=== PATIENT | male | born 1965 | race Two or more races ===

== ENCOUNTER 2023-07-26 20:54 | Emergency (ER) | payer BC, SELFPAY ==
--- NOTE | 2023-07-26 | ECG_ITS ---
Test Reason : chest pain, sob Blood Pressure : / mmHG Vent. Rate : 117 BPM Atrial Rate : 117 BPM P-R Int : 130 ms QRS Dur : 078 ms QT Int : 330 ms P-R-T Axes : 053 040 039 degrees QTc Int : 460 ms Sinus tachycardia Nonspecific ST-T changes Abnormal ECG No previous ECGs available Referred By: Generic ED Physician Electronically Signed By:Kang Pavon
--- NOTE | ~2023-07-26 | XR_ITS ---
EXAMINATION: XR CHEST CLINICAL INFORMATION: Pain COMPARISON: None available. TECHNIQUE: Frontal view of the chest was obtained. FINDINGS: No significant abnormality is noted involving the heart, lungs, mediastinum, bony thorax or soft tissues. XR/XR chest 1V IMPRESSION: Unremarkable examination.
[2023-07-26 21:04] VITALS: BP 155/100; PULSE 118; RESP 16; TEMP 37.1; O2SAT 98; BMI 24.2
--- NOTE | 2023-07-26 21:12 | ED.CHESTPAIN ---
HPI - Chest Pain General Chief Complaint: Chest Pain Stated Complaint: chest marquise,sob Time Seen by Provider: 07/26/23 21:11 Source: patient Mode of arrival: ambulatory Limitations: no limitations History of Present Illness HPI narrative: Patient's history of hypertension with strong family history of cardiac disease his 2 brothers of coronary artery disease at his age do not take any aspirin blood pressure well controlled on lisinopril and amlodipine been having some cold and dry hacking cough since last night patient's grandson was also sick for last 2 days at 15:00 patient took cough syrup containing phenylepinephrine. Since 17:00 while [address] drop his grandson patient noticed tightness in the chest with slight cough and shortness of breath which improved later again while at rest and 19:00 noticed similar symptoms no jaw pain no arm no cold sweats patient never had similar symptoms in the past when patient arrived patient denied any significant pain or tightness. Blood pressure on arrival was 155/100 with pulse rate of 118 saturating 98% at room air Related Data Previous Rx's Medication Instructions Recorded benzonatate 200 mg capsule 200 mg PO TID PRN cough #30 caps 07/26/23 codeine 10 mg-guaifenesin 100 mg/5 10 ml PO Q6H PRN cough #237 mL 07/26/23 mL oral liquid Allergies Allergy/AdvReac Type Severity Reaction Status Date / Time Penicillins AdvReac Intermediate Palpitation Verified 07/26/23 21:07 s Review of Systems Review of Systems: Yes all other systems are reviewed and are negative [facility] Past Medical History Medical History (Updated 07/26/23 @ 23:47 by Dakota Patel MD) Hypertension Social History Social History Smoked in Last 30 Days: No Use of substances other than those prescribed or required for medical reasons: No Advance Directives: No Advance Directives Information Provided: Yes Physical Exam Vital Signs: Vital Signs: Last Vital Signs Temp 98.2 F 07/26/23 21:47 Pulse 90 07/26/23 21:47 Resp 15 07/26/23 21:47 BP 125/84 07/26/23 21:47 Pulse Ox 98 07/26/23 21:47 O2 Del Method Room Air 07/26/23 21:47 BMI result Body Mass Index 24.2 Appearance: Alert. Oriented X3. No acute distress. Eyes: No pallor or icterus ENT: Pharynx normal. Oral Mucosa moist Neck: Normal inspection. Neck supple. CVS: Normal heart rate and rhythm. Pulses normal. Respiratory: No respiratory distress. Equal air entry bilateral, no wheezing/rales/rhonchi Abdomen: Soft and nontender. Bowel sounds are present, Skin: Skin warm and dry. Normal skin color. Normal skin turgor. Extremities: No lower extremity edema. No calf tenderness Neuro: Oriented X 3. No motor deficit. Medications Administered Discontinued Medications Generic Name Dose Route Start Last Admin Trade Name Freq PRN Reason Stop Dose Admin Aspirin 162 mg 07/26/23 21:13 07/26/23 21:39 Aspirin Enteric Coated 81 Mg Tablet. PO 07/26/23 21:14 162 mg ONCE ONE Administration Atorvastatin Calcium 80 mg 07/26/23 21:22 07/26/23 21:39 Atorvastatin Calcium 80 Mg Tablet PO 07/26/23 21:23 80 mg ONCE ONE Administration Guaifenesin/Codeine Phosphate 10 ml 07/26/23 23:38 07/26/23 23:54 Guaifen/Codeine Sf 200/20/10ml 10 Ml Liquid PO 07/26/23 23:39 10 ml ONCE ONE Administration Heparin Sodium (Porcine) 5,000 unit 07/26/23 21:24 07/26/23 21:39 Heparin Sodium,Porcine 5,000 Unit/Ml Vial IVPUSH 07/26/23 21:25 5,000 unit ONCE ONE Administration Metoprolol Tartrate 5 mg 07/26/23 21:22 07/26/23 21:39 Metoprolol Tartrate 5 Mg/5 Ml Vial IVPUSH 07/26/23 21:23 5 mg ONCE ONE Administration Nitroglycerin 1 inch 07/26/23 21:13 07/26/23 21:39 Nitroglycerin 2 % Oint 1 Gm Packet TRANSDERMA 07/26/23 21:14 1 inch ONCE ONE Administration Medical Decision Making Medical Decision Making [facility] Narrative: Patient with significant risk factors for coronary disease with his 2 brothers of CAD at the same age comes here with chest tightness and shortness of breath EKG showing changes in the inferolateral leads. At this time there is no ST elevation. Will give aspirin nitroglycerin beta joselyn atorvastatin and will give a bolus of heparin 5000U pending cardiac enzymes Patient test came out positive for COVID-19 2 sets of high sensitive troponin negative D-dimer negative likely patient's symptoms from COVID not from ACS will discharge patient home. Case discussed with cardiology Dr. Manjeet Pavon Differential Diagnosis Differential Diagnoses: The differential diagnosis associated with the presentation includes ACS/PE/pneumonia/pneumothorax Admission/Observation Consideration of admission/observation: Escalation of care including admission/observation considered Lab Data MDM Lab Attestation statement: I reviewed the patient's lab results. 07/26/23 21:26 07/26/23 21: Labs: Lab Results 07/26/23 07/26/23 07/26/23 Range/Units 21:26 21: 21: WBC 13.2 H (4.8-10.8) X10*3/uL RBC 5.69 (4.60-5.80) X10*6/uL Hgb 16.5 (14.0-18.0) g/dl Hct 48.2 (42.0-52.0) % MCV 84.7 (80.0-98.0) fL MCH 29.0 (27.0-33.0) pg MCHC 34.2 (31.0-36.0) g/dl RDW 12.3 (11.0-16.0) % Plt Count 400 (160-400) X10*3/uL MPV 8.7 L (9.4-12.4) fL Immature Gran % (Auto) 0.3 (0.0-0.4) % Neut % (Auto) 67.8 (45-73) % Lymph % (Auto) 21.4 (20-40) % [place] % (Auto) 7.4 (2-11) % Eos % (Auto) 2.6 (0-4) % Baso % (Auto) 0.5 (0-2) % Lymph # (Auto) 2.8 (1.2-4.9) X10*3/uL [place] # (Auto) 1.0 (0.1-1.2) X10*3/uL Eos # (Auto) 0.3 (0.0-0.4) X10*3/uL Baso # (Auto) 0.1 (0.0-0.2) X10*3/uL Abs Immat Gran (auto) 0.04 H (0.00-0.03) X10*3/uL Absolute Neuts (auto) 8.9 H (2.0-8.3) x10*3/uL Absolute Nucleated RBC 0.000 (0.0-0.012) X10*3/uL Nucleated RBC % (auto) 0.0 (0.0-0.2) /100WBC PT Cancelled 12.5 INR Cancelled 1.0 APTT 33.8 (26.0-36.4) SEC D-Dimer High Sensitivty < 150 NG/ML Sodium 142 (135-145) mmol/L Potassium 3.8 (3.3-5.1) mmol/L Chloride 102 (96-108) mmol/L Carbon Dioxide 27 (22-29) mmol/L Anion Gap 17 (12-20) BUN 21 H (9-16) mg/dL Creatinine 1.43 H (0.5-1.4) mg/dL Estim Creat Clear Calc 51.4 Estimated GFR 51 Random Glucose 113 (60-115) mg/dL Calcium 9.5 (8.4-10.2) mg/dL Magnesium 2.1 (1.6-2.6) mg/dL Total Bilirubin 0.4 (0.0-1.0) mg/dL Direct Bilirubin 0.2 (0.0-0.5) mg/dL AST 21 (5-37) U/L ALT 28 (0-40) U/L Alkaline Phosphatase 61 (39-117) U/L Troponin I High Sens < 2.7 (<3.5-35.0) ng/L B-Natriuretic Peptide < 10 (<100) pg/mL Total Protein 8.5 H (6.5-8.0) g/dL Albumin 4.5 (3.5-5.0) g/dL COVID-19 (BUBBA) Positive A (Negative) COVID-19 Clin Com See Note Influenza Type A (YULIET) Negative (Negative) Influenza Type B (YULIET) Negative (Negative) Influenza A & B Note See Note 07/26/23 Range/Units 22:59 WBC (4.8-10.8) X10*3/uL RBC (4.60-5.80) X10*6/uL Hgb (14.0-18.0) g/dl Hct (42.0-52.0) % MCV (80.0-98.0) fL MCH (27.0-33.0) pg MCHC (31.0-36.0) g/dl RDW (11.0-16.0) % Plt Count (160-400) X10*3/uL MPV (9.4-12.4) fL Immature Gran % (Auto) (0.0-0.4) % Neut % (Auto) (45-73) % Lymph % (Auto) (20-40) % [place] % (Auto) (2-11) % Eos % (Auto) (0-4) % Baso % (Auto) (0-2) % Lymph # (Auto) (1.2-4.9) X10*3/uL [place] # (Auto) (0.1-1.2) X10*3/uL Eos # (Auto) (0.0-0.4) X10*3/uL Baso # (Auto) (0.0-0.2) X10*3/uL Abs Immat Gran (auto) (0.00-0.03) X10*3/uL Absolute Neuts (auto) (2.0-8.3) x10*3/uL Absolute Nucleated RBC (0.0-0.012) X10*3/uL Nucleated RBC % (auto) (0.0-0.2) /100WBC PT INR APTT (26.0-36.4) SEC D-Dimer High Sensitivty NG/ML Sodium (135-145) mmol/L Potassium (3.3-5.1) mmol/L Chloride (96-108) mmol/L Carbon Dioxide (22-29) mmol/L Anion Gap (12-20) BUN (9-16) mg/dL Creatinine (0.5-1.4) mg/dL Estim Creat Clear Calc Estimated GFR Random Glucose (60-115) mg/dL Calcium (8.4-10.2) mg/dL Magnesium (1.6-2.6) mg/dL Total Bilirubin (0.0-1.0) mg/dL Direct Bilirubin (0.0-0.5) mg/dL AST (5-37) U/L ALT (0-40) U/L Alkaline Phosphatase (39-117) U/L Troponin I High Sens < 2.7 (<3.5-35.0) ng/L B-Natriuretic Peptide (<100) pg/mL Total Protein (6.5-8.0) g/dL Albumin (3.5-5.0) g/dL COVID-19 (BUBBA) (Negative) COVID-19 Clin Com Influenza Type A (YULIET) (Negative) Influenza Type B (YULIET) (Negative) Influenza A & B Note Independent Interpretation I performed an independent interpretation of an: EKG Interpretation: Sinus tachycardia with heart rate 117 beats per minute normal interval normal axis flat ST segment V4 V5 V6 T inversion inferior lateral leads no ST elevation Critical Care Time Critical Care Time Critical Care Time: Yes Total Critical Care Time: 45 Attestation: The patient was critically ill with a high probability of imminent or life threatening deterioration. I spent greater than ?50??minutes of discontinuous time evaluating the patient,delivering critical care at the bedside, discussing and evaluating pertinent data with consultants. Critical care time does not include time spent performing separately billable procedures or teaching. Total time spent performing critical care was 45???minutes. Discharge Plan Discharge Clinical Impression: Chest pain, COVID-19 Patient Disposition: Home, Self-Care Instructions: Chest Pain (ED), COVID-19 (Coronavirus Disease 2019) (ED) Additional Instructions: Social distancing as advised Cough syrup as prescribed Tylenol for headache/fever Your creatinine is slightly elevated to 1.43 drink plenty of fluids recheck your kidney functions in 1 month Prescriptions: New codeine-guaifenesin 10-100 mg/5 mL liquid 10 ml PO Q6H PRN (Reason: cough) Qty: 237 0RF benzonatate 200 mg capsule 200 mg PO TID PRN (Reason: cough) Qty: 30 0RF Interventions: ED Discharge Assessment Last Done: 07/27/23 00:01 Discharge Date/Time: 07/27/23 00:02
[2023-07-26 21:18] VITALS: BP 146/87; PULSE 119; RESP 17; TEMP 36.5; O2SAT 100
[2023-07-26 21:31] LABS: MANUAL DIFF FLAG NO
[2023-07-26 21:33] LABS: Basophils Absolute Auto 0.1 X10*3/uL (0.0-0.2); Basophils Percent Auto 0.5 % (0-2); Eosinophils Absolute Auto 0.3 X10*3/uL (0.0-0.4); Eosinophils Percent Auto 2.6 % (0-4); Hematocrit 48.2 % (42.0-52.0); Hemoglobin 16.5 g/dl (14.0-18.0); Imm Gran Abs Auto 0.04 X10*3/uL (0.00-0.03); Imm Gran Pct Auto 0.3 % (0.0-0.4); Lymphocytes Absolute Auto 2.8 X10*3/uL (1.2-4.9); Lymphocytes Percent Auto 21.4 % (20-40); Mean Corpuscular HGB Conc 34.2 g/dl (31.0-36.0); Mean Corpuscular Volume 84.7 fL (80.0-98.0); Mean Platelet Volume 8.7 fL (9.4-12.4); Monocytes Percent Auto 7.4 % (2-11); Neutrophils Absolute Auto 8.9 x10*3/uL (2.0-8.3); Neutrophils Percent Auto 67.8 % (45-73); Platelet Count 400 X10*3/uL (160-400); Red Blood Count 5.69 X10*6/uL (4.60-5.80); Red Cell Distribution Width 12.3 % (11.0-16.0); White Blood Count 13.2 X10*3/uL (4.8-10.8)
[2023-07-26] MEDS: Aspirin Enteric Coated 81 MG TABLET.DR 162 MG PO (21:39)
[2023-07-26] MEDS: Atorvastatin Calcium 80 MG TABLET PO (21:39)
[2023-07-26] MEDS: Heparin Sodium,Porcine 5,000 UNIT/ML VIAL 5000 UNIT IVPUSH (21:39)
[2023-07-26] MEDS: Metoprolol Tartrate 5 MG/5 ML VIAL IVPUSH (21:39)
[2023-07-26] MEDS: Nitroglycerin 2 % Oint 1 GM Packet 1 INCH TRANSDERMA (21:39)
[2023-07-26 21:43] LABS: Prothrombin Time 12.5 SEC (11.1-13.3)
[2023-07-26 21:44] VITALS: PULSE 115
[2023-07-26 21:45] LABS: COVID-19 Test Positive (Negative); IDNOW Serial# 152EDE1D
[2023-07-26 21:46] LABS: Partial Thromboplastin Time 33.8 SEC (26.0-36.4)
[2023-07-26 21:47] VITALS: BP 125/84; PULSE 90; RESP 15; TEMP 36.8; O2SAT 98
[2023-07-26 21:48] LABS: Alanine Aminotransferase 28 U/L (0-40); Albumin Level 4.5 g/dL (3.5-5.0); Alkaline Phosphatase 61 U/L (39-117); Anion Gap 17 (12-20); Aspartate Amino Transferase 21 U/L (5-37); Bilirubin Direct 0.2 mg/dL (0.0-0.5); Bilirubin Total 0.4 mg/dL (0.0-1.0); Blood Urea Nitrogen 21 mg/dL (9-16); Calcium 9.5 mg/dL (8.4-10.2); Carbon Dioxide 27 mmol/L (22-29); Chloride 102 mmol/L (96-108); Creatinine Clr Calc Pharmacy 51.4; Estimated Glomerular Filt Rate 51; Glucose Random 113 mg/dL (60-115); Magnesium 2.1 mg/dL (1.6-2.6); Potassium 3.8 mmol/L (3.3-5.1); Sodium 142 mmol/L (135-145); Total Protein 8.5 g/dL (6.5-8.0)
[2023-07-26 21:50] LABS: D Dimer High Sensitivity < 150 NG/ML
[2023-07-26 21:54] LABS: B Type Natriuretic Peptide < 10 pg/mL (<100)
[2023-07-26 21:55] LABS: Troponin-I High Sensitivity < 2.7 ng/L (<3.5-35.0)
[2023-07-26 22:14] LABS: IDNOW Serial# 08D9AD1C; Influenza A Negative (Negative); Influenza B2 Negative (Negative)
[2023-07-26 23:23] LABS: Troponin-I High Sensitivity < 2.7 ng/L (<3.5-35.0)
--- OUTSIDE RECORDS SUMMARY | 2023-07-26 23:47 | XMS_ITS | Patient Health Record ---
Author Name Unknown Organization [email or web address] Address [address] [place] [address] Care Team Providers Care Bevel Face Stoner And Polisher Name Role Phone MANNIE GARVEY Primary Care Provider ALLERGIES Allergen (clinical drug ingredient) Drug/Non Drug Allergy documented on EMR Reaction Allergy Type Onset Date Status penicillamine Penicillamine Unknown Drug Allergy Active RESULTS Component Value Reference Range Notes COMPREHENSIVE METABOLIC PANE L (Not yet reviewed by provider) Interpretation: Performing Lab:Testing performed or reported by [facility], a Service of [facility], [address] [place] [address] Imtiaz Becker MD, [employer] Worker [facility]# [id number] Notes/Report: GLUCOSE 111 (70-99) MG/DL BUN 16 (6-20) MG/DL CREATININE 1.1 (0.7-1.2) MG/DL SODIUM 139 (133-145) MMOL/L POTASSIUM 4.5 (3.6-5.2) MMOL/L CHLORIDE 104 (98-107) MMOL/L BICARBONATE 26 (22-29) MMOL/L ANION GAP 9 (4-17) ALBUMIN 4.2 (3.4-4.8) GM/DL CALCIUM 9.0 (8.6-10.5) MG/DL BILIRUBIN,TOTAL 0.4 (0-1.2) MG/DL TOTAL PROTEIN 7.5 (6.2-8.2) GM/DL AG RATIO 1.3 AST 16 (0-40) U/L ALK PHOS 63 (40-129) U/L ALT 24 (0-41) U/L ESTIMATED GFR CREATININE 79 Creatinine based estimated glomerular filtration (eGFR) in adults is calculated using the National Kidney Foundation recommended 2020 CKD-EPI equation. Estimates GFR from serum creatinine, age and sex. HEMOGLOBIN A1C WITH EST GLUC OSE (Not yet reviewed by provider) Interpretation: Performing Lab:Testing performed or reported by [facility], a Service of [address] [address] Imtiaz Becker MD, [employer] Work[employer] [facility]# [id number] Notes/Report: HEMOGLOBIN A1C 6.0 (4.0-5.6) % MONITORING: In known diabetic patients, hemoglobin A1c targets should be discussed with health care provider. DIAGNOSTIC USE: The [place] Diabetes [employer] (ADA) and the World Health Organization (WHO) recommend the use of HbA1c to diagnose diabetes using a threshold of 6.5%. Patients who have an HbA1c between 5.7% and 6.4% are considered at increased risk for developing diabetes in the future. CAUTION: Falsely low HbA1c results may be observed in patients with hemolytic anemia, homozygous forms of abnormal hemoglobin (e.g. SS, CC, SC), , recent blood loss or hemoglobin F greater than 7%. Fructosamine may be used as an alternate test in these cases. REFERENCE: ADA: Standards of Medical Care in Diabetes 2020, The Journal of Clinical and Applied Research and Education Volume 43, Supplement 1 ESTIMATED AVERAGE GLUCOSE 126 MICROALBUMIN, URINE (Not yet reviewed by provider) Interpretation: Performing Lab:Testing performed or reported by [facility], a Service of [address] [address] Imtiaz Becker MD, [employer] Worker [facility]# [id number] Notes/Report: MICRO-ALBUMIN 85.0 (<20) MG/L The urine microalbumin test is designed to monitor renal function. When screening for Bence Luque proteinuria, urine electrophoresis is recommended. MALB/CREAT RATIO 29.7 (0-20) MG/GM URINE CREAT FOR MICRO ALBUMIN 285.7 LIPID PANEL Reviewed date:07/13/2023 08:03:29 AM Interpretation: Performing Lab:Testing performed or reported by [facility], a Service of [address] [address] Imtiaz Becker MD, [employer] Worker [facility]# [id number] Notes/Report: CHOLESTEROL, TOTAL 76 (<200) MG/DL TRIGLYCERIDE 55 (<150) MG/DL HDL CHOL 35 (>39) MG/DL LDL CHOLESTEROL, CALCULATED 30 (0-130) MG/DL NON HDL CHOLESTEROL (CALC) 41 (<160) MG/DL PSA, SCREEN Reviewed date:07/13/2023 08:01:31 AM Interpretation: Performing Lab:Testing performed or reported by [facility], a Service of [facility], [address] [place] [address] Imtiaz Becker MD, [employer] Worker [facility]# [id number] Notes/Report: PSA 0.6 (0-4) NG/ML TEST PERFORMED USING THE CRYSTAL ELECTROCHEMILLUMINESCENCE TOTAL PSA ASSAY. PSA VALUES OBTAINED WITH OTHER ASSAY METHODS OR KITS CANNOT BE USED INTERCHANGEABLY. REASON FOR REFERRAL Reason Please see for sebac eous cyst on back Diagnosis 1 Sebaceous cyst (L72. 3) Referral Organization [facility] ter Referring Provider First Name MANNIE Referring Provider Last Name GURU Referring Provider Speciality Internal M edicine Referred Provider [facility] [place] Referred Provider Specialty General Surg cl General Notes Faxed please follow up, Artis Dempsey 12/01/2022 03:10:30 PM > Clinical Notes Please refax referra l pt. was advised by [facility] that they did not receive the referral. Patient aware of [facility] phone#. , Deni Sky 12/05/2022 02:09:28 AM >, re faxed, Artis Dempsey 12/04/2022 03:59:42 PM >, Please call their office and verify fax number. Fax has not been going through with the fax we have., Ellie Nowak 12/05/2022 07:53:47 AM > , [facility] for referrals fax# [phone]., Deni Sky 01/10/2023 04:22:00 PM >, Refaxed., Ellie Nowak 01/11/2023 10:07:13 AM >, Received a fax from [facility] when they are reaching out with the pt. Patient stated to cancel the referral.Asya Ceasar 01/12/2023 01:04:34 PM > Referral Priority Routine MEDICATIONS Medication SIG (Take, Route, Frequency, Duration) Notes Start Date End Date Status amLODIPine Besylate 2.5 MG TAKE 1 TABLET BY MOUTH EVERY DAY for 30 Active Clotrimazole 1 % 1 application Records Management Analyst ally Twice a day for 28 day(s) 12/15/2021 Unknow n Lotrimin AF 1 % 1 application Records Management Analyst ally Twice a day for 28 day(s) 12/15/2021 Unknow n Lisinopril-hydroCHLOROthia zide 20-25 MG TAKE 1 TABLET BY MOUTH EVERY DAY for 90 Active IMMUNIZATIONS Vaccine Route Administration Date Status Comme nts COVID 19 Pfizer Unknown 10/09/2020 Administered COVID 19 Pfizer Unknown 10/31/2020 Administered COVID 19 Pfizer Unknown 06/18/2021 Administered Fluzone QD IM Intramuscular 06/15/2022 Administered SOCIAL HISTORY Tobacco Use: Social History Observation Description Date Details (start date - stop date) Never Smoker NA - NA Sex Assigned At : Social History Observation Description Sex Assigned At Unknown Tobacco Use/Smoking Question Answer Notes Are you a nonsmoker Alcohol Screen (Audit-C) Question Answer Notes Did you have a drink containing alcohol in the p ast year? No Points 0 Interpretation Negative PROBLEMS Problem Type ICD Code Onset Dates Problem Status W/U Status Risk SNOMED Code Notes Problem Proteinuria, unspecified (R80.9) Active confirmed Proteinuria (57961972) Problem Encounter for general adult medical examination without abnormal findings (Z00.00) Active confirmed Adult health examination (952213366) Problem Essential (primary) hypertension (I10) Active confirmed Essential hypertension (35261594) Problem Personal history of COVID-19 (Z86.16) Active confirmed History of disease caused by Severe acute respiratory syndrome coronavirus 2 (situation) ([id number] 105) VITAL SIGNS Heart Rate 85 /min 07/12/2023 Temperature 97.4 degrees Fahrenheit 07/12/2023 Oximetry 98 % 07/12/2023 Blood pressure diastolic 90 mm Hg 07/12/2023 Height 65.75 in 07/12/2023 Blood pressure systolic 122 mm Hg 07/12/2023 Weight 156.6 lbs 07/12/2023 BMI 25.47 kg/m2 07/12/2023 Encounters Encounter Location Date Provider Diagnosis [facility] [address] [place] [address] 12/14/2022 [facility] [address] [place] [address] 01/25/2023 MANNIE GARVEY Encounter for genera l adult medical examination without abnormal findings Z00.00 ; Essential (primary) hypertension I10 ; Impaired fasting glucose R73.01 ; Encounter for screening for malignant neoplasm of prostate Z12.5 and Proteinuria, unspecified R80.9 [facility] [address] [place] [address] 07/12/2023 MANNIE GARVEY Essential (primary) hypertension I10 [facility] [address] [place] [address] 12/01/2022 MANNIE GARVEY [facility] [address] [place] [address] 2023 MANNIE GARVEY ASSESSMENTS Encounter Date Diagnosis Assessment Notes Treatment Notes Treatment Clinical Notes 01/25/2023 Encounter for general adult medical examination without abnormal findings (ICD-10 - Z00.00) 07/12/2023 Essential (primary) hypertension (ICD-10 - I10) 01/25/2023 Essential (primary) hypertension (ICD-10 - I10) 01/25/2023 Encounter for screening for malignant neoplasm of prostate (ICD-10 - Z12.5) 01/25/2023 Impaired fasting glucose (ICD-10 - R73.01) 01/25/2023 Proteinuria, unspecified (ICD-10 - R80.9) PLAN OF TREATMENT Pending Test Test Name Order Date Electrocardiogram (EKG) 02/20/2018 Ultrasound : Kidneys 04/16/2018 EBCT Coronary calcium score 07/12/2023 COMPREHENSIVE METABOLIC PANEL 07/12/2023 COMPREHENSIVE METABOLIC PANEL 09/30/2021 HEMOGLOBIN A1C 12/09/2021 HEMOGLOBIN A1C WITH EST GLUCOSE 06/15/20 22 HEMOGLOBIN A1C WITH EST GLUCOSE 07/12/19 24 LIPID PANEL 09/30/2021 MICROALBUMIN, URINE 09/30/2021 MICROALBUMIN, URINE 07/12/2023 Future Test Test Name Order Date COMPREHENSIVE METABOLIC PANEL 06/15/2022 LIPID PANEL 06/15/2022 MICROALBUMIN, URINE 06/15/2022 COMPREHENSIVE METABOLIC PANEL 01/26/2023 HEMOGLOBIN A1C WITH EST GLUCOSE 01/27/20 23 LIPID PANEL 01/26/2023 MICROALBUMIN, URINE 01/26/2023 PSA, SCREEN 01/26/2023 Next Appt Details Provider Name:MANNIE GARVEY , 01/17/2024 04:30:00 PM, [address], [place], [address], Insurance Providers Payer Name Payer Address Payer Phone Subscriber Number Group Number Insured Name Patient Relationship to Insured Coverage Start Date Coverage End Date [facility] [address] [place] [phone] [id number] Lucas Farrell Self - patient is the insured MEDICAL (GENERAL) HISTORY Medical History History ICD Code Hypertension Impaired fasting glucose Proteinuria Personal history of COVID-19 Surgical History Surgery Date(Month/Year) Hospitalization History Reason Date(Month/Year)
--- OUTSIDE RECORDS SUMMARY | 2023-07-26 23:47 | XMS_ITS | Continuity of Care Document ---
Author Name Unknown Organization [facility] Address [address] [place] [address] [address] [place] [address]- Care Team Providers Care Credit Processor Name Role Phone Lanre Nogueira MD Primary Care Physician Encounter [facility] Date(s): 01/12/23 - 02/11/23 [facility] [address] [place] [address]- Patient Care team information Care Team Personnel Name: Lanre Nogueira MD Position: S Physician - Primary Care Member Role: PCP Address: Address: [address] [place] [address] [place]
[2023-07-26] MEDS: guaiFEN/Codeine SF 200/20/10ML 10 ML LIQUID PO (23:54)
== END 2023-07-27 00:02 | disposition home or self-care (01) ==
PROVIDERS: Emergency Medicine; Emergency Provider Internal Medicine
DX: U07.1 COVID-19 (principal); R07.89 Other chest pain; Z79.899 Other long term (current) drug therapy
CPT/HCPCS: 36415; 71045; 80048; 80076; 83735; 83880; 84484; 85025; 85379; 85610; 85730; 87502; 87635; 93005; 96374; 96375; 99285; J1644

== ENCOUNTER → 2023-07-26 21:02 | Outpatient (BNV) | payer BC, SELFPAY | PROVIDERS: Emergency Provider Internal Medicine; Visit Provider Internal Medicine Cardiovascular Disease | DX: R00.0 Tachycardia, unspecified (principal); R94.31 Abnormal electrocardiogram [ECG] [EKG] | CPT/HCPCS: 93010 ==

== ENCOUNTER 2023-09-19 08:36 | Emergency (ER) | payer BC, SELFPAY ==
--- NOTE | ~2023-09-19 | XR_ITS ---
EXAMINATION: XR CHEST CLINICAL INFORMATION: Cough COMPARISON: 07/26/2023 TECHNIQUE: 2 views of the chest were obtained. FINDINGS: Lungs clear. Heart and pulmonary vessels are normal. No pleural effusion. XR/XR chest 2V IMPRESSION: No active disease.
[2023-09-19 08:41] VITALS: PULSE 89; RESP 18; TEMP 36.4; O2SAT 97; BMI 24.7
[2023-09-19] MEDS: Albuterol Sulfate 2.5 MG, Albuterol/Iprat 2.5/0.5MG 3 ML 3 ML INHALE (09:04)
[2023-09-19 09:07] VITALS: PULSE 110; RESP 20; O2SAT 98
[2023-09-19 09:47] LABS: Influenza A PCR NEGATIVE (Negative); Influenza B PCR NEGATIVE (Negative); Resp Syncy Virus RNA Qual PCR NEGATIVE (Negative); SARS COV2 PCR INHOUSE NEGATIVE (Negative)
--- NOTE | 2023-09-19 09:57 | ED.SOB ---
HPI - SOB/Dyspnea General Chief Complaint: Dyspnea Stated Complaint: Difficulty breathing - asthma Time Seen by Provider: 09/19/23 08:48 Source: patient, family and old records reviewed Mode of arrival: ambulatory Limitations: no limitations History of Present Illness HPI Narrative: 58 yo male with PMH of HTN notes worsening breathing x 10 days along with chest congestion then bouts of cough that trigger bronchospasm and feeling like he cannot breathe. He has tried ceftin, flonase, now is on doxycycline and prednisone 20mg daily along with albuerol INH. He continues to have these coughing bouts. MD elicited complaint: shortness of breath and cough Onset (ago): day(s) (10) Context: recent illness Timing: intermittent Severity: moderate Exacerbating factors: movement and coughing Relieving factors: rest and bronchodilators Associated symptoms: cough and wheezing Treatment prior to arrival: bronchodilator and other (steroids, antibiotics) Related Data Previous Rx's Medication Instructions Recorded benzonatate 200 mg capsule 200 mg PO TID PRN cough #30 caps 07/26/23 codeine 10 mg-guaifenesin 100 mg/5 10 ml PO Q6H PRN cough #237 mL 07/26/23 mL oral liquid prednisone 20 mg tablet 60 mg (3 x 20 mg) PO DAILY 4 days 09/19/23 #12 tabs Allergies Allergy/AdvReac Type Severity Reaction Status Date / Time Penicillins AdvReac Intermediate Palpitation Verified 09/19/23 08:41 s Review of Systems Review of Systems: Constitutional : No Fever, No Chills ENT/Mouth : pos Hoarseness, No sore throat, No Rhinorrhea Eyes: No Redness, No Discharge, No Vision Changes Cardiovascular : No Chest Pain, positive SOB, positive Dyspnea on Exertion, No Edema Respiratory : positive Cough, No Sputum, positive Wheezing, Gastrointestinal : No Nausea, No Vomiting, No Diarrhea, No abdominal Pain Genitourinary : No Dysuria, No Hematuria Musculoskeletal : No joint pain, No Myalgias Skin : No rash Neuro : No Weakness, No Numbness, No Headache Psych : No anxiety, depression Heme/Lymph: No Bruising, No Bleeding Endocrine : No Polyuria, No Polydipsia All other systems reviewed and are negative PMFSH Past Medical History Attestation statement: The following information was validated with the patient. Source: old records reviewed Medical History Hypertension Social History Social History Advance Directives: No Advance Directives Information Provided: No Physical Exam Vital Signs: Vital Signs: Last Vital Signs Temp 97.6 F 09/19/23 08:41 Pulse 110 H 09/19/23 09:07 Resp 20 09/19/23 09:07 Pulse Ox 97 09/19/23 08:41 O2 Del Method Room Air 09/19/23 08:41 BMI result Body Mass Index 24.7 Appearance: Alert. Oriented X3. No acute distress. Eyes: Pupils equal, round and reactive to light. ENT: Pharynx normal. Neck: Normal inspection. Neck supple. CVS: Normal heart rate and rhythm. Pulses normal. Respiratory: No respiratory distress. Breath sounds slightly diminished had bronchospasm event with cough then panicked and wouldn't talk O2 sat during event was 95%. resolved quickly Abdomen: Soft and nontender. Skin: Skin warm and dry. Normal skin color. Normal skin turgor. Extremities: No lower extremity edema. No calf ttp Neuro: Oriented X 3. No motor deficit. No sensory deficit. Medications Administered Discontinued Medications Generic Name Dose Route Start Last Admin Trade Name Freq PRN Reason Stop Dose Admin Albuterol Sulfate 2.5 mg/ 0 mg 09/19/23 09:00 09/19/23 09:04 Albuterol/Ipratropium 3 ml INHALE 09/19/23 09:01 1 dose ONCE ONE Administration Epinephrine 0.5 ml 09/19/23 08:56 09/19/23 09:00 Racepinephrine Hcl 0.5 Ml Vial.Neb INHALE 09/19/23 08:57 Not Given ONCE ONE Prednisone 40 mg 09/19/23 08:54 09/19/23 10:22 Prednisone 20 Mg Tablet PO 09/19/23 08:55 40 mg ONCE ONE Administration Medical Decision Making Medical Decision Making MDM Narrative: 58 yo male with PMH of HTN with recent URI now with coughing fits triggering bronchospasm at this time will repeat viral panel obtain CXR and increase his prednisone to 60mg a day and refer to PCP for nebulizer machine. He has no hypoxia he is not toxic appearing. Will reasess after neb treatment Differential Diagnosis Differential Diagnoses: The differential diagnosis associated with the presentation includes viral syndrome, pneumonia, bronchospasm Admission/Observation Consideration of admission/observation: Escalation of care including admission/observation considered no hypoxia improved after neb needs to contact PCP for nebulizer machine Lab Data MDM Lab Attestation statement: I reviewed the patient's lab results. Labs: Lab Results 09/19/23 Range/Units 09:01 Influenza Type A (PCR) NEGATIVE (Negative) Influenza Type B (PCR) NEGATIVE (Negative) RSV RNA Qual (PCR) NEGATIVE (Negative) SARS-CoV-2 RNA (RT-PCR) NEGATIVE (Negative) Independent Interpretation I performed an independent interpretation of an: Plain X-Ray (no pneumonia) Radiology Impression Discussion of test interpretation with radiology: I have reviewed the radiologist's reading. Independent Historian Clinical information obtained from an independent historian. History obtained from or confirmed by: Spouse External Record Review External record reviewed: Outpatient record Prescription Management I considered prescription management with: Other Discharge Plan Discharge Clinical Impression: Acute bronchospasm Patient Disposition: Home, Self-Care Instructions: Bronchospasm (ED) Additional Instructions: normal chest xray negative covid, flu, rsv viral panel sent off will contact you tomorrow if anything positive you need to go to your primary care doctor for a nebulizer machine return for any worsening symptoms continue doxycycline prednisone no longer 20mg daily but 60mg daily for next 4 days Prescriptions: New prednisone 20 mg tablet 60 mg PO DAILY 4 Days Qty: 12 0RF No Action codeine-guaifenesin 10-100 mg/5 mL liquid 10 ml PO Q6H PRN (Reason: cough) Qty: 237 0RF benzonatate 200 mg capsule 200 mg PO TID PRN (Reason: cough) Qty: 30 0RF Stand Alone Forms: Work/School Release
[2023-09-19] MEDS: predniSONE 20 MG TABLET 40 MG PO (10:22)
[2023-09-19 11:27] VITALS: BP 138/80; PULSE 88; RESP 18; TEMP 36.7; O2SAT 97
[2023-09-19 12:43] LABS: Adenovirus PCR Not Detected (Not Detect.); Bordetella parapertussis PCR Not Detected (Not Detect.); Bordetella pertussis PCR Not Detected (Not Detect.); Chlamydia pneumoniae PCR Not Detected (Not Detect.); Coronavirus 229E PCR Not Detected (Not Detect.); Coronavirus HKU1 PCR Not Detected (Not Detect.); Coronavirus NL63 PCR Not Detected (Not Detect.); Coronavirus OC43 PCR Not Detected (Not Detect.); Human metapneumovirus PCR Not Detected (Not Detect.); Influenza A PCR Not Detected (Not Detect.); Influenza B PCR Not Detected (Not Detect.); Mycoplasma pneumoniae PCR Not Detected (Not Detect.); Parainfluenza 1 PCR Not Detected (Not Detect.); Parainfluenza 2 PCR Not Detected (Not Detect.); Parainfluenza 3 PCR Not Detected (Not Detect.); Parainfluenza 4 PCR Not Detected (Not Detect.); RSV PCR Not Detected (Not Detect.); Rhino/Enterovirus PCR Not Detected (Not Detect.)
[2023-09-19 12:50] LABS: SARS-CoV-2 PCR Not Detected (Not Detect.)
== END 2023-09-19 11:27 | disposition home or self-care (01) ==
PROVIDERS: Emergency Provider Emergency Medicine; PCP Hospitalist
DX: J98.01 Acute bronchospasm (principal); I10 Essential (primary) hypertension; Z79.52 Long term (current) use of systemic steroids; Z79.899 Other long term (current) drug therapy; Z88.0 Allergy status to penicillin; Z11.52 Encounter for screening for COVID-19; Z20.828 Contact with and (suspected) exposure to other viral communicable diseases
CPT/HCPCS: 0241U; 71046; 87633; 94640; 99283; 99284; 99285

== ENCOUNTER 2023-09-24 08:56 | Outpatient (REF) | payer BC, SELFPAY ==
[2023-09-24 10:09] LABS: MANUAL DIFF FLAG NO
[2023-09-24 10:59] LABS: Basophils Absolute Auto 0.1 X10*3/uL (0.0-0.2); Basophils Percent Auto 0.4 % (0-2); Eosinophils Absolute Auto 0.1 X10*3/uL (0.0-0.4); Eosinophils Percent Auto 0.8 % (0-4); Hematocrit 42.7 % (42.0-52.0); Hemoglobin 14.3 g/dl (14.0-18.0); Imm Gran Abs Auto 0.19 X10*3/uL (0.00-0.03); Imm Gran Pct Auto 1.4 % (0.0-0.4); Lymphocytes Absolute Auto 3.6 X10*3/uL (1.2-4.9); Lymphocytes Percent Auto 27.1 % (20-40); Mean Corpuscular HGB Conc 33.5 g/dl (31.0-36.0); Mean Corpuscular Volume 86.6 fL (80.0-98.0); Mean Platelet Volume 8.8 fL (9.4-12.4); Monocytes Percent Auto 7.7 % (2-11); Neutrophils Absolute Auto 8.3 x10*3/uL (2.0-8.3); Neutrophils Percent Auto 62.6 % (45-73); Platelet Count 501 X10*3/uL (160-400); Red Blood Count 4.93 X10*6/uL (4.60-5.80); Red Cell Distribution Width 13.1 % (11.0-16.0); White Blood Count 13.3 X10*3/uL (4.8-10.8)
[2023-09-24 11:52] LABS: Erythrocyte Sedimentation Rate 5 MM/HR (0-15)
[2023-09-25 13:58] LABS: Immunoglobulin G Subclass 1 752 mg/dL (382-929); Immunoglobulin G Subclass 2 456 mg/dL (241-700); Immunoglobulin G Subclass 3 16 mg/dL (22-178); Immunoglobulin G Subclass 4 96.3 mg/dL (4-86); Immunoglobulin G Total 1291 mg/dL (600-1640)
[2023-09-25 18:39] LABS: IgA 248 mg/dL (47-310); IgG 1332 mg/dL (600-1640); IgM 59 mg/dL (50-300)
[2023-09-27 13:08] LABS: Class Alternaria alternata 0; Class Aspergillus fumigatus 0; Class Bermuda Grass 0; Class Birch 0; Class Cat Dander 0; Class Cladosporium herbarum 0; Class Cockroach 0; Class Common Ragweed 0; Class Cottonwood 0; Class Derm. pterony 3; Class Dermatophagoides farinae 3; Class Dog Dander 0; Class Elm 0; Class Maple Box Elder 0; Class Mountain Cedar 0; Class Mouse Urine Protein 0; Class Mugwort 0; Class Oak 0; Class Penicillium crysogenum 0; Class Rough Pigweed 0; Class Sheep Sorrel 0; Class Sycamore 0; Class Timothy Grass 0; Class Walnut Tree 0; Class White Ash 0; Class White Mulberry 0; E001 - IgE Cat Dander <0.10 kU/L; E005 - IgE Dog Dander <0.10 kU/L; E072-IgE Mouse Urine <0.10 kU/L; G002 IgE Bermuda Grass <0.10 kU/L; G006 - IgE Timothy Grass <0.10 kU/L; I006-IgE Cockroach, German <0.10 kU/L; Immunoglobulin E 156 kU/L (<OR=114); M001 IgE Penicillium chrysogen <0.10 kU/L; M002 - IgE Cladosporium herbar <0.10 kU/L; M003 - IgE Aspergillus fumigat <0.10 kU/L; M006 - IgE Alternaria alternat <0.10 kU/L; T001 IgE Maple/Box Elder <0.10 kU/L; T003 IgE Common Silver Birch <0.10 kU/L; T006 - IgE Cedar, Mountain <0.10 kU/L; T007 - IgE Oak, White <0.10 kU/L; T008 IgE Elm, American <0.10 kU/L; T010 - IgE Walnut <0.10 kU/L; T011 - IgE Maple Leaf Sycamore <0.10 kU/L; T014 - IgE Cottonwood <0.10 kU/L; T015 - IgE Ash, White <0.10 kU/L; T070 - IgE White Mulberry <0.10 kU/L; W001 - IgE Ragweed, Short <0.10 kU/L; W006 - IgE Mugwort <0.10 kU/L; W014 IgE Pigweed, Common <0.10 kU/L; W018 IgE Sheep Sorrel <0.10 kU/L
[2023-09-30 16:57] LABS: Asperg fumigatus Precip Abs NEGATIVE (NEGATIVE); Micropoly faeni Abs NEGATIVE (NEGATIVE); Pigeon serum Abs NEGATIVE (NEGATIVE); Saccharo pora viridis Abs NEGATIVE (NEGATIVE); Thermo candidus Abs NEGATIVE (NEGATIVE); Thermoa vulgaris #1 NEGATIVE (NEGATIVE)
== END 2023-09-24 08:57 | disposition home or self-care (01) ==
LOC: HO.LAB 08:56
PROVIDERS: PCP Hospitalist; Referring Provider Internal Medicine Cardiovascular Disease; Visit Provider Hospitalist
DX: J98.01 Acute bronchospasm (principal); T78.40XA Allergy, unspecified, initial encounter; J32.9 Chronic sinusitis, unspecified; R91.8 Other nonspecific abnormal finding of lung field; R91.1 Solitary pulmonary nodule; R05.3 Chronic cough; J38.5 Laryngeal spasm
CPT/HCPCS: 36415; 82784; 82785; 85025; 85652; 86003; 86331; 86606; 86609

== ENCOUNTER 2023-09-24 08:56 | Outpatient (AMB) | payer BC, SELFPAY ==
[2023-09-24 09:01] VITALS: PULSE 82; O2SAT 98; BMI 23.4
--- NOTE | 2023-09-24 09:01 | MHC.OFFVIS ---
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 The patient is a 58-year-old gentleman with a remote history of childhood asthma. Now presenting with worsening respiratory symptoms. Apparently back in late June the patient did have a bout of COVID-19. He was sick during that time with a worsening cough. Although he was given medications and his symptoms did resolve any did have a complete recovery. After that sometime in July the patient did go abroad to [facility] in other countries in the surrounding area. He was going on program machine therefore he was exposed to mid in some people. He was not wearing a mask. He did come back and you started becoming sick with chest congestion cough and also significant difficulty with his breathing. He went to see his primary care doctor felt to have some wheezing and was prescribed some prednisone and antibiotics. He was given up some point Augmentin at some point doxycycline. He was also placed on prednisone with partial improvement of the symptoms. He also had been taking Benadryl. His shortness of breath and cough so significant that he could not even work. He did have a rescue inhaler that does given some partial improvement of the symptoms. Finally his symptoms were getting severe in decided to come into the ER. He was seen here. Had a chest x-ray that was clear. He was documented to have diminished breath sounds was concerned about his oxygen. He was given prednisone 60 mg which improved his symptoms dramatically. Here in the office we did have him for 6 late and also cough and during those episodes he started developing some difficulty breathing. He states that his triggers could be drinking something hot like a hot soup can make him have a hard time with his breathing. He describes difficulty is mainly breathing in and also when he has having an episode he has a hard time speaking. He is describing some degree of laryngeal spasms. In addition to that has had significant sinus congestion postnasal drip. On examination I do not appreciate any stridor. His lungs are diminished but without any expiratory wheezing at this time. The patient does have some swelling over the left maxillary sinus with significant erythema and irritation to the mucosa lining. Does have some evidence of postnasal drip. PFSH Medical History (Updated 09/24/23 @ 20:24 by Nathaniel Mills MD) Chronic cough Laryngospasm Sinusitis Allergies Hypertension Social History (Updated 09/24/23 @ 09:03 by MAX Cavazos) Patient Tobacco Use Status: Never used Tobacco Review of Systems Const Denies fever(s) Eyes Reports no additional complaints ENT Reports nasal congestion, Reports nasal discharge, Reports post nasal drip, Reports sinus pain and Reports sinus pressure Card Denies chest pain and Reports dyspnea Resp Reports cough, Reports dyspnea and Reports wheezing GI Reports no additional complaints Musc Reports no additional complaints Skin/Breast Denies rash Neuro Reports no additional complaints Robbin/Lymph Denies lymphadenopathy Aller/Immun Reports wheezing Physical Exam Vital Signs: Last Vital Signs Pulse 82 09/24/23 09:01 Pulse Ox 98 09/24/23 09:01 Oxygen Delivery Method Room Air 09/24/23 09:01 BMI result Body Mass Index 23.4 Const General: comfortable HEENT Ears: TM's normal bilaterally General nose exam: Abnormal mucous membranes and turbinates present erythematous on the left Face and sinus: Yes sinus tenderness Neck Neck: Yes supple Chest Chest palpation & inspection: normal inspection of the chest Resp Effort & Inspection: normal respiratory effort Auscultation: no crackles, no wheezes and diminished lung sounds Cardio Heart sounds: S1 normal heart sound present and S2 normal heart sound present GI Palpation (GI): Soft to palpation Skin General skin exam: no rashes or lesions noted Extrem General: Yes no clubbing, cyanosis or edema Results Reviewed Results Reviewed: [address] [address] XRay Report Signed Patient: Lucas Farrell MR#: [id number] : 1965 Acct:[id number] Age/Sex: 58 / M ADM Date: 09/19/23 Loc: HO.ED Attending Dr: Ordering Physician: Lavonne Xavier DO Date of Service: 09/19/23 Procedure(s): XR chest 2V Accession Number(s): [id number] cc: Lavonne Xavier DO; Harry Nogueira MD~ EXAMINATION: XR CHEST CLINICAL INFORMATION: Cough COMPARISON: 07/26/2023 TECHNIQUE: 2 views of the chest were obtained. FINDINGS: Lungs clear. Heart and pulmonary vessels are normal. No pleural effusion. XR/XR chest 2V IMPRESSION: No active disease. Dictated By: Jesus Mishra MD Signed By: <Electronically signed by Jesus Mishra MD in OV> 09/19/23 1142 DD/ 1003 TD/TT: Care Asst: Assessment & Plan Assessment & Plan (1) Chronic cough: Code(s): R05.3 - Chronic cough (2) Laryngospasm: Code(s): J38.5 - Laryngeal spasm (3) Sinusitis: Code(s): J32.9 - Chronic sinusitis, unspecified Qualifiers: Sinusitis location: maxillary Chronicity: subacute Qualified Code(s): J01.00 - Acute maxillary sinusitis, unspecified (4) Allergies: Code(s): T78.40XA - Allergy, unspecified, initial encounter Qualifiers: Encounter type: initial encounter Qualified Code(s): T78.40XA - Allergy, unspecified, initial encounter Plan The patient is having episodes of difficulty breathing after a trip abroad. The symptoms appear to be more upper airway. ALso has evidence of sinusitis. REC: start Levaquin start low dose prednisone start Afrin x 5 days continue fluticasone start budesonide nebs/albuterol start Mucinex Nystatin MW x [address] referral consider CT sinuses Bloodwork/allergy testing F/U 3-4 weeks Orders: Orders Erythrocyte Sedimentation Rate Today J32.9 - Chronic sinusitis, unspecified, J98.01 - Acute bronchospasm, T78.40XA - Allergy, unspecified, initial encounter Immunoglobulin G Subclasses Today J32.9 - Chronic sinusitis, unspecified, J98.01 - Acute bronchospasm, T78.40XA - Allergy, unspecified, initial encounter Immunoglobulins,IgG IgA IgM Today J32.9 - Chronic sinusitis, unspecified, J98.01 - Acute bronchospasm, T78.40XA - Allergy, unspecified, initial encounter Hypersensitive Pneumonitis Prf Today J32.9 - Chronic sinusitis, unspecified, J98.01 - Acute bronchospasm, R91.8 - Other nonspecific abnormal finding of lung field, T78.40XA - Allergy, unspecified, initial encounter Resp Allergy Profile Region I Today J32.9 - Chronic sinusitis, unspecified, J98.01 - Acute bronchospasm, R91.1 - Solitary pulmonary nodule, T78.40XA - Allergy, unspecified, initial encounter Complete Blood Count Auto Diff Today J32.9 - Chronic sinusitis, unspecified, J98.01 - Acute bronchospasm, T78.40XA - Allergy, unspecified, initial encounter Immunoglobulin E Today J32.9 - Chronic sinusitis, unspecified, J98.01 - Acute bronchospasm, T78.40XA - Allergy, unspecified, initial encounter Referrals Ear/Nose/Throat Referral J32.9 - Chronic sinusitis, unspecified, J38.5 - Laryngeal spasm, R05.3 - Chronic cough, T78.40XA - Allergy, unspecified, initial encounter Medications: New nystatin swish and swallow 1 mL PO BID 30 days 60 mL 0RF budesonide 0.5 mg (2 mL) inhalation DAILY 30 days 60 mL 11RF oxymetazoline 0.05% (Afrin (oxymetazoline)) 2 sprays intranasal Q12H 5 days PRN 22 mL 0RF nasal congestion dextromethorphan-guaifenesin 60-1,200 mg ER (Mucinex DM) 1 tab PO Q12H 28 tabs 0RF prednisone PO daily; Take 2 tabs daily x 7 days, then 1 tab daily x 7 days 14 days 21 tabs 0RF levofloxacin 500 mg PO DAILY 14 days 14 tabs 0RF Coding Level of Care Code New Pt Level 4 (33723) Diagnoses Chronic cough R05.3 Laryngospasm J38.5 Subacute maxillary sinusitis J01.00 Sinusitis location: maxillary Chronicity: subacute Allergy, initial encounter T78.40XA Encounter type: initial encounter Time Spent (min) 45
== END 2023-09-24 09:40 | disposition home or self-care (01) ==
PROVIDERS: PCP Hospitalist; Referring Provider Internal Medicine Cardiovascular Disease; Visit Provider Hospitalist
DX: R05.3 Chronic cough (principal); J38.5 Laryngeal spasm; J01.00 Acute maxillary sinusitis, unspecified; T78.40XA Allergy, unspecified, initial encounter
CPT/HCPCS: 99204

== ENCOUNTER 2023-10-03 14:50 | Emergency (ER) | payer BC, SELFPAY ==
--- NOTE | ~2023-10-03 | CT_ITS ---
EXAMINATION: CT SOFT TISSUE NECK WITHOUT CONTRAST CLINICAL INFORMATION: Laryngomalacia. COMPARISON: None available. TECHNIQUE: Multidetector helical imaging was performed in the axial plane without intravenous contrast. Multiple axial reformats and coronal/sagittal reconstructions were created the technologist workstation for review. This CT examination was performed using dose optimization techniques as appropriate, variously including the following: *Automated exposure control. *Adjustment of mA and/or kV according to patient size (this includes techniques or standardized protocols for targeted exams where dose is matched to indication/reason for exam; i.e. extremities or head). *Use of iterative reconstruction technique. DLP: 455 mGy-cm FINDINGS: No significant cutaneous thickening or subcutaneous inflammation. No discrete fluid collection within the deep tissues of the neck. The premaxillary, retromaxillary, pterygopalatine fossa, orbital apical, parapharyngeal, and prelaryngeal adipose tissue is maintained. Normal appearance of the parotid, submandibular, and thyroid glands. Scattered subcentimeter lymph nodes bilaterally, none of which are pathologically enlarged. Normal mucosal contours of the pharynx. There appears to be mild circumferential mucosal edema of the larynx. No demonstrated focal lesions of the pharynx/larynx. There is effacement and laryngeal airway at the time of exam. The remainder of the airways remains widely patent. Normal appearance of the hyoid bone, thyroid cartilage, or cartilaginous trachea. No radiopaque foreign bodies. The atlantooccipital and atlantoaxial articulations remain well aligned. Straightening of the normal cervical lordosis. No evidence of acute fracture or subluxation of the cervical spine. The vertebral body heights are maintained. Moderate degenerative disc disease from C4-C7. Facet and uncovertebral joint arthropathy leads to osseous encroachment on the neural foramina from C4-C7. There is no prevertebral soft tissue swelling. The visualized portion of the skull base is without significant abnormalities. Mild mucosal thickening of the paranasal sinuses. The mastoid air cells and middle ear cavities are clear. No demonstrated significant periapical odontogenic disease. CT Upper Chest: The visualized lung apices and upper mediastinum are within normal limits. CT/CT soft tissue neck wo IV con IMPRESSION: 1. Potential mild circumferential mucosal edema of the larynx. No demonstrated focal lesions of the pharynx/larynx. There is effacement of the laryngeal airway at the time of exam (it would be difficult to assess if this narrowing is fixed or transitory based on CT at one time point). The remainder of the airways remains widely patent. 2. No additional focal lesion, collection, or lymphadenopathy within the soft tissues of the neck.
--- NOTE | ~2023-10-03 | XR_ITS ---
EXAMINATION: XR CHEST CLINICAL INFORMATION: Shortness of breath. COMPARISON: 07/26/2023 and 09/19/2023 TECHNIQUE: 2 views of the chest were obtained. FINDINGS: Lungs are well-inflated. An old calcified granuloma of < 0.3 cm size is present in the left upper lobe. Trachea is midline in position. No interstitial disease, consolidation or mass. No pleural effusion or pneumothorax. Cardiac silhouette and pulmonary vessels are normal in size. The mediastinum and lawson have normal contour. The visualized bones and upper abdomen are unremarkable. XR/XR chest 2V IMPRESSION: No acute cardiopulmonary abnormality.
[2023-10-03 14:55] VITALS: BP 139/94; PULSE 118; RESP 24; TEMP 36.3; O2SAT 97; BMI 22.6
--- NOTE | 2023-10-03 14:55 | ED_ITS ---
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 Patient is normal in between Related Data Home Medications Medication Instructions Recorded Confirmed nebulizers 09/24/23 Previous Rx's Medication Instructions Recorded albuterol sulfate 90 mcg/actuation 2 puff inhalation QID PRN 09/19/23 aerosol inhaler shortness of breath or wheezing #6.7 grams budesonide 0.5 mg/2 mL suspension 0.5 mg (2 mL) inhalation DAILY 30 09/24/23 for nebulization days #60 mL dextromethorphan-guaifenesin ER 60 1 tab PO Q12H #28 tabs 09/24/23 mg-1,200 mg tab,extend release,12hr (Mucinex DM) levofloxacin 500 mg tablet 500 mg PO DAILY 14 days #14 tabs 09/24/23 nystatin 100,000 unit/mL oral 1 ml PO BID 30 days #60 mL 09/24/23 suspension oxymetazoline 0.05 % nasal spray 2 spray intranasal Q12H PRN nasal 09/24/23 (Afrin (oxymetazoline)) congestion 5 days #22 mL prednisone 10 mg tablet See Rx Instructions PO DAILY 14 09/24/23 days #21 tabs benzonatate 200 mg capsule 200 mg PO TID PRN cough #30 caps 10/03/23 codeine 10 mg-guaifenesin 100 mg/5 10 ml PO Q6H PRN cough #237 mL 10/03/23 mL oral liquid lorazepam 1 mg tablet (Ativan) 1 mg PO BEDTIME PRN anxiety/sleep 10/03/23 #10 tabs Allergies Allergy/AdvReac Type Severity Reaction Status Date / Time Penicillins AdvReac Intermediate Palpitation Verified 09/24/23 09:02 s Review of Systems 2 Review of Systems: Yes all other systems are reviewed and are negative [facility] Past Medical History Medical History Chronic cough Laryngospasm Sinusitis Allergies Hypertension Social History Social History Alcohol intake: never Patient Tobacco Use Status: Never used Tobacco Smoked in Last 30 Days: No Use of substances other than those prescribed or required for medical reasons: No Advance Directives: No Advance Directives Information Provided: No Physical Exam 2 Vital Signs: Vital Signs: Last Vital Signs Temp 98.3 F 10/03/23 18:32 Pulse 127 H 10/03/23 18:32 Resp 18 10/03/23 18:32 BP 139/105 H 10/03/23 18:32 Pulse Ox 96 10/03/23 18:32 O2 Del Method Room Air 10/03/23 18:32 BMI result Body Mass Index 22.6 Appearance: Alert. Oriented X3. No acute distress. Eyes: No pallor or icterus ENT: Pharynx normal. Oral Mucosa moist no stridor at rest Neck: Normal inspection. Neck supple. CVS: Normal heart rate and rhythm. Pulses normal. Respiratory: No respiratory distress. Equal air entry bilateral, no wheezing/rales/rhonchi Abdomen: Soft and nontender. Bowel sounds are present, no mass palpable, no CVA tenderness Skin: Skin warm and dry. Normal skin color. Normal skin turgor. Extremities: No lower extremity edema. No calf tenderness Neuro: Oriented X 3. Course Course Course Narrative: This is an RME: Additional HPI, ROS, PE not included below will be deferred to primary provider. This is a 58 [id number], with a hx of asthma, who presents to the ER with complaints of SOB x 3 hours. Reporting productive cough with white sputum. Reporting decreased appetite and 10 lb weight loss in the last 3 weeks. Traveled to [place] 3 weeks ago. Currently on prednisone. Plan: Medications Administered Discontinued Medications Generic Name Dose Route Start Last Admin Trade Name Freq PRN Reason Stop Dose Admin Guaifenesin/Codeine Phosphate 10 ml 10/03/23 17:12 10/03/23 17:30 Guaifen/Codeine Sf 200/20/10ml 10 Ml Liquid PO 10/03/23 17:13 10 ml ONCE ONE Administration Medical Decision Making Medical Decision Making MDM Narrative: Patient with dynamic stridor/larynx spasm when he feels secretions in his throat will give codeine will get CT scan of the neck CT scan of the neck negative for acute shows slight edema patient advised to follow with ENT continue Tessalon/codeine cough syrup Differential Diagnosis Differential Diagnoses: The differential diagnosis associated with the presentation includes Status/laryngomalacia anxiety Lab Data MDM Lab Attestation statement: I reviewed the patient's lab results. 10/03/23 15:56 10/03/23 15:56 Labs: Lab Results 10/03/23 Range/Units 15:56 WBC 14.2 H (4.8-10.8) X10*3/uL RBC 5.89 H (4.60-5.80) X10*6/uL Hgb 17.1 (14.0-18.0) g/dl Hct 50.1 (42.0-52.0) % MCV 85.1 (80.0-98.0) fL MCH 29.0 (27.0-33.0) pg MCHC 34.1 (31.0-36.0) g/dl RDW 13.5 (11.0-16.0) % Plt Count 399 (160-400) X10*3/uL MPV 8.7 L (9.4-12.4) fL Immature Gran % (Auto) 0.6 H (0.0-0.4) % Neut % (Auto) 84.4 H (45-73) % Lymph % (Auto) 10.9 L (20-40) % [place] % (Auto) 3.4 (2-11) % Eos % (Auto) 0.3 (0-4) % Baso % (Auto) 0.4 (0-2) % Lymph # (Auto) 1.6 (1.2-4.9) X10*3/uL [place] # (Auto) 0.5 (0.1-1.2) X10*3/uL Eos # (Auto) 0.0 (0.0-0.4) X10*3/uL Baso # (Auto) 0.1 (0.0-0.2) X10*3/uL Abs Immat Gran (auto) 0.09 H (0.00-0.03) X10*3/uL Absolute Neuts (auto) 12.0 H (2.0-8.3) x10*3/uL Absolute Nucleated RBC 0.000 (0.0-0.012) X10*3/uL Nucleated RBC % (auto) 0.0 (0.0-0.2) /100WBC PT 12.0 (11.1-13.3) SEC INR 1.0 (0.9-1.1) APTT 31.3 (26.0-36.8) SEC D-Dimer High Sensitivty < 150 NG/ML Sodium 142 (135-145) mmol/L Potassium 3.9 (3.3-5.1) mmol/L Chloride 106 (96-108) mmol/L Carbon Dioxide 28 (22-29) mmol/L Anion Gap 12 (12-20) BUN 20 H (9-16) mg/dL Creatinine 1.32 (0.5-1.4) mg/dL Estim Creat Clear Calc 55.4 Estimated GFR 56 Random Glucose 140 H (60-115) mg/dL Calcium 9.5 (8.4-10.2) mg/dL Total Bilirubin 0.6 (0.0-1.0) mg/dL Direct Bilirubin 0.2 (0.0-0.5) mg/dL AST 20 (5-37) U/L ALT 33 (0-40) U/L Alkaline Phosphatase 59 (39-117) U/L Troponin I High Sens < 2.7 (<3.5-35.0) ng/L Total Protein 8.1 H (6.5-8.0) g/dL Albumin 4.3 (3.5-5.0) g/dL Influenza Type A (PCR) NEGATIVE (Negative) Influenza Type B (PCR) NEGATIVE (Negative) RSV RNA Qual (PCR) NEGATIVE (Negative) SARS-CoV-2 RNA (RT-PCR) NEGATIVE (Negative) Independent Interpretation I performed an independent interpretation of an: CT Scan Radiology Impression Discussion of test interpretation with radiology: I have reviewed the radiologist's reading. Radiologist Impression: CT/CT soft tissue neck wo IV con IMPRESSION: 1. Potential mild circumferential mucosal edema of the larynx. No demonstrated focal lesions of the pharynx/larynx. There is effacement of the laryngeal airway at the time of exam (it would be difficult to assess if this narrowing is fixed or transitory based on CT at one time point). The remainder of the airways remains widely patent. 2. No additional focal lesion, collection, or lymphadenopathy within the soft tissues of the neck. Discharge Plan Discharge Clinical Impression: Laryngospasms Patient Disposition: Home, Self-Care Instructions: Laryngospasm (DC) Additional Instructions: Takes cough syrup as prescribed Ativan to relax and sleep Follow-up with ENT specialist as scheduled Prescriptions: New codeine-guaifenesin 10-100 mg/5 mL liquid 10 ml PO Q6H PRN (Reason: cough) Qty: 237 0RF lorazepam [Ativan] 1 mg tablet 1 mg PO BEDTIME PRN (Reason: anxiety/sleep) Qty: 10 0RF benzonatate 200 mg capsule 200 mg PO TID PRN (Reason: cough) Qty: 30 0RF No Action albuterol sulfate 90 mcg/actuation HFA aerosol inhaler 2 puff inhalation QID PRN (Reason: shortness of breath or wheezing) Qty: 6.7 0RF (DME) nebulizers Misc See Rx Instructions .ROUTE Rx Instructions: As directed prednisone 10 mg tablet See Rx Instructions PO DAILY 14 Days Qty: 21 0RF Rx Instructions: PO daily; Take 2 tabs daily x 7 days, then 1 tab daily x 7 days levofloxacin 500 mg tablet 500 mg PO DAILY 14 Days Qty: 14 0RF nystatin 100,000 unit/mL suspension 1 ml PO BID 30 Days Qty: 60 0RF Rx Instructions: swish and swallow budesonide 0.5 mg/2 mL suspension for nebulization 0.5 mg inhalation DAILY 30 Days Qty: 60 11RF oxymetazoline [Afrin (oxymetazoline)] 0.05 % spray,non-aerosol 2 spray intranasal Q12H PRN (Reason: nasal congestion) 5 Days Qty: 22 0RF dextromethorphan-guaifenesin [Mucinex DM] 60-1,200 mg tablet extended release 12 hr 1 tab PO Q12H Qty: 28 0RF Interventions: ED Discharge Assessment Last Done: 10/03/23 18:32 Discharge Date/Time: 10/03/23 18:34
--- NOTE | 2023-10-03 15:00 | ECG_ITS ---
Test Reason : chest pain Blood Pressure : / mmHG Vent. Rate : 102 BPM Atrial Rate : 102 BPM P-R Int : 122 ms QRS Dur : 072 ms QT Int : 328 ms P-R-T Axes : 051 020 021 degrees QTc Int : 427 ms Sinus tachycardia Nonspecific T wave abnormality Abnormal ECG When compared with ECG of 26-JUL-2023 21:02, No significant change was found Referred By: Odalis Mays Electronically Signed By:ARIEL VERDUZCO MD
[2023-10-03 16:01] LABS: MANUAL DIFF FLAG NO
[2023-10-03 16:03] LABS: Basophils Absolute Auto 0.1 X10*3/uL (0.0-0.2); Basophils Percent Auto 0.4 % (0-2); Eosinophils Percent Auto 0.3 % (0-4); Hematocrit 50.1 % (42.0-52.0); Hemoglobin 17.1 g/dl (14.0-18.0); Imm Gran Abs Auto 0.09 X10*3/uL (0.00-0.03); Imm Gran Pct Auto 0.6 % (0.0-0.4); Lymphocytes Absolute Auto 1.6 X10*3/uL (1.2-4.9); Lymphocytes Percent Auto 10.9 % (20-40); Mean Corpuscular HGB Conc 34.1 g/dl (31.0-36.0); Mean Corpuscular Volume 85.1 fL (80.0-98.0); Mean Platelet Volume 8.7 fL (9.4-12.4); Monocytes Absolute Auto 0.5 X10*3/uL (0.1-1.2); Monocytes Percent Auto 3.4 % (2-11); Neutrophils Percent Auto 84.4 % (45-73); Platelet Count 399 X10*3/uL (160-400); Red Blood Count 5.89 X10*6/uL (4.60-5.80); Red Cell Distribution Width 13.5 % (11.0-16.0); White Blood Count 14.2 X10*3/uL (4.8-10.8)
[2023-10-03 16:17] LABS: Partial Thromboplastin Time 31.3 SEC (26.0-36.8)
[2023-10-03 16:18] LABS: Alanine Aminotransferase 33 U/L (0-40); Albumin Level 4.3 g/dL (3.5-5.0); Alkaline Phosphatase 59 U/L (39-117); Anion Gap 12 (12-20); Aspartate Amino Transferase 20 U/L (5-37); Bilirubin Direct 0.2 mg/dL (0.0-0.5); Bilirubin Total 0.6 mg/dL (0.0-1.0); Blood Urea Nitrogen 20 mg/dL (9-16); Calcium 9.5 mg/dL (8.4-10.2); Carbon Dioxide 28 mmol/L (22-29); Chloride 106 mmol/L (96-108); Creatinine Clr Calc Pharmacy 55.4; Estimated Glomerular Filt Rate 56; Glucose Random 140 mg/dL (60-115); Potassium 3.9 mmol/L (3.3-5.1); Sodium 142 mmol/L (135-145); Total Protein 8.1 g/dL (6.5-8.0)
[2023-10-03 16:25] LABS: Troponin-I High Sensitivity < 2.7 ng/L (<3.5-35.0)
[2023-10-03 16:26] LABS: D Dimer High Sensitivity < 150 NG/ML
[2023-10-03 16:43] LABS: Influenza A PCR NEGATIVE (Negative); Influenza B PCR NEGATIVE (Negative); Resp Syncy Virus RNA Qual PCR NEGATIVE (Negative); SARS COV2 PCR INHOUSE NEGATIVE (Negative)
[2023-10-03] MEDS: guaiFEN/Codeine SF 200/20/10ML 10 ML LIQUID PO (17:30)
[2023-10-03 18:32] VITALS: BP 139/105; PULSE 127; RESP 18; TEMP 36.8; O2SAT 96
--- NOTE | 2023-10-03 18:33 | PC.NURSE ---
provider at bedside for discharge.
== END 2023-10-03 18:34 | disposition home or self-care (01) ==
PROVIDERS: Physician Assistant Medical; Emergency Provider Internal Medicine; PCP Hospitalist
DX: J38.5 Laryngeal spasm (principal); J45.909 Unspecified asthma, uncomplicated; I10 Essential (primary) hypertension
CPT/HCPCS: 0241U; 36415; 70490; 71046; 80048; 80076; 84484; 85025; 85379; 85610; 85730; 93005; 99284

== ENCOUNTER → 2023-10-03 15:00 | Outpatient (BNV) | payer BC, SELFPAY | PROVIDERS: Emergency Provider Internal Medicine; PCP Hospitalist; Visit Provider Internal Medicine Cardiovascular Disease | DX: R94.31 Abnormal electrocardiogram [ECG] [EKG] (principal) | CPT/HCPCS: 93010 ==

== ENCOUNTER 2023-10-22 07:47 | Outpatient (REF) | payer BC, SELFPAY ==
--- NOTE | ~2023-10-22 | CT_ITS ---
EXAMINATION: CT SINUS WITHOUT CONTRAST CLINICAL INFORMATION: Nasal polyp COMPARISON: CT soft tissue neck on 10/03/2023 TECHNIQUE: Multiple 2.0 mm axial images of the paranasal sinuses were obtained without IV contrast enhancement. Bone window and soft tissue window images were reconstructed. Multiple 2.0 mm coronal and sagittal images of the paranasal sinuses were reconstructed from the axial image data. This CT examination was performed using dose optimization techniques as appropriate, variously including the following: *Automated exposure control *Adjustment of mA and/or kV according to patient size (this includes techniques or standardized protocols for targeted exams where dose is matched to indication/reason for exam; i.e. extremities or head) *Use of iterative reconstruction technique DLP: 104.43 mGy-cm FINDINGS: Sphenoid sinuses: Bilateral sphenoid sinuses are clear with intact bony septations. Ethmoid sinuses: Bilateral ethmoid sinuses are clear with intact bony septations. Maxillary sinuses: Bilateral maxillary sinuses are clear with intact bony guerra. Bilateral osteomeatal complexes are patent. There are bilateral Galo's cells. No abnormal expansion of the ethmoidal bullae, no gregorio bullosa or paradoxical curvature of the middle turbinates could be seen. Nasal septum shows minimal bowing to the right. Frontal sinuses: Bilateral frontal sinuses are clear with intact bony septations. Bilateral frontonasal recesses are patent. CT/CT sinus wo IV con IMPRESSION: 1. Unchanged Normal CT scan of the paranasal sinuses. 2. Patent bilateral osteomeatal complexes.
== END 2023-10-22 07:48 | disposition home or self-care (01) ==
LOC: HO.CT 07:47
PROVIDERS: PCP Hospitalist; Visit Provider Otolaryngology
DX: J01.91 Acute recurrent sinusitis, unspecified (principal); J33.0 Polyp of nasal cavity
CPT/HCPCS: 70486

== ENCOUNTER 2023-10-25 10:07 | Outpatient (AMB) | payer BC, SELFPAY ==
--- NOTE | 2023-10-25 10:11 | A.OFFVIS_ITS ---
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 Now presenting with worsening respiratory symptoms. Apparently back in late June the patient did have a bout of COVID-19. He was sick during that time with a worsening cough. Although he was given medications and his symptoms did resolve any did have a complete recovery. After that sometime in July the patient did go abroad to [facility] in other countries in the surrounding area. He was going on program machine therefore he was exposed to mid in some people. He was not wearing a mask. He did come back and you started becoming sick with chest congestion cough and also significant difficulty with his breathing. He went to see his primary care doctor felt to have some wheezing an d was prescribed some prednisone and antibiotics. He was given up some point Augmentin at some point doxycycline. He was also placed on prednisone with partial improvement of the symptoms. He also had been taking Benadryl. His shortness of breath and cough so significant that he could not even work. He did have a rescue inhaler that does given some partial improvement of the symptoms. Finally his symptoms were getting severe in decided to come into the ER. He was seen here. Had a chest x-ray that was clear. He was documented to have diminished breath sounds was concerned about his oxygen. He was given prednisone 60 mg which improved his symptoms dramatically. Here in the office we did have him for 6 late and also cough and during those episodes he started developing some difficulty breathing. He states that his triggers could be drinking something hot like a hot soup can make him have a hard time with his breathing. He describes difficulty is mainly breathing in and also when he has having an episode he has a hard time speaking. He is describing some degree of laryngeal spasms. In addition to that has had significant sinus congestion postnasal drip. On examination I do not appreciate any stridor. His lungs are diminished but without any expiratory wheezing at this time. The patient does have some swelling over the left maxillary sinus with significant erythema and irritation to the mucosa lining. Does have some evidence of postnasal drip. 10/25/2023 the patient is here for a pulmonary follow-up visit. Overall he has doing a lot better. He still has had some minimal episodes similar to the ones the broaden to be evaluated. Although about 80-90% improvement overall he states. He also has an intermittent cough. The cough sometimes result in the coughing spasm. He did undergo a CT scan of the sinuses and will be following up with ENT for that. In addition to that he does have a barium swallow scheduled. He completed the prednisone also all the antibiotics. At this point will try to minimize on his cough. We did talk about improving his postnasal drip using a Neti bottle. I did have available taught him on use it with distilled water only. In addition to that he can use Benzonate cough drops just to help him with the cough intermittently avoid does coughing spells. His blood work was reassuring. He did have allergies to dust mites and he can work on using hypoallergenic covers and making sure the minimize his carpeting in his home. [facility] Medical History Chronic cough Laryngospasm Sinusitis Allergies Hypertension Social History Alcohol intake: never Patient Tobacco Use Status: Never used Tobacco Review of Systems Const Denies fever(s) Eyes Reports no additional complaints ENT Reports nasal congestion, Reports nasal discharge, Reports post nasal drip, Denies sinus pain and Denies sinus pressure Card Denies chest pain and Denies dyspnea Resp Reports cough, Denies dyspnea and Denies wheezing GI Reports no additional complaints Musc Reports no additional complaints Skin/Breast Denies rash Neuro Reports no additional complaints Robbin/Lymph Denies lymphadenopathy Aller/Immun Denies wheezing Physical Exam Vital Signs: Last Vital Signs Pulse 93 10/25/23 10:12 Pulse Ox 99 10/25/23 10:12 Oxygen Delivery Method Room Air 10/25/23 10:12 BMI result Body Mass Index 23.2 Const General: comfortable HEENT Ears: TM's normal bilaterally Neck Neck: Yes supple Chest Chest palpation & inspection: normal inspection of the chest Resp Effort & Inspection: normal respiratory effort Auscultation: clear to auscultation bilaterally, no crackles and no wheezes Cardio Heart sounds: S1 normal heart sound present and S2 normal heart sound present GI Palpation (GI): Soft to palpation Skin General skin exam: no rashes or lesions noted Extrem General: Yes no clubbing, cyanosis or edema Results Reviewed Results Reviewed: ? Diagnostics Subcategory All Activity ??:?? All Time ??:?? All Subcategories Filter Laboratory Imaging Microbiology Pathology Blood Bank Tests Cardiovascular Other Specialty DATE TYPE STATUS REF RANGE/AUTHOR Hx 10/22/23 07:[address] ? 10/03/23 17:[address] Signed Ovi Harrison 10/03/23 15:09 Chest X-Ray Signed Bob Lopez 09/19/23 10:03 Chest X-Ray Signed eJsus Mishra 07/26/23 21:37 Chest X-Ray Signed Víctor Luo [address]qan [address] 58, M?1965 MRN#? [id number] Departed Room 3 [facility]??? 5ft 6in 144lb BSA: 1.74m? BMI: 23.2kg/m? Visit Date: 10/25/23 Resus Status Not Addressed No Hx Avail Allergies lisinopril Angioedema Penicillins Palpitations Medications Prescription Monitoring Program Total 12 MME/Day Unconfirmed Active albuterol sulfate 90 mcg/actuation 2 puffsinhalationQIDPRN benzonatate 200 mgPOTIDPRN budesonide 0.5 mg(2 mL)[id number] days codeine-guaifenesin 10-100 mg/5 mL 10 [id number] MME/Day = 12 dextromethorphan-guaifenesin 60-1,200 mg ER(Mucinex DM) 1 [id number] lorazepam(Ativan) 1 mgPOBEDTIMEPRN nebulizers See Rx Instructions nystatin 1 pOOVAVD04 days oxymetazoline 0.05%(Afrin (oxymetazoline)) 2 [id number] days levofloxacin 500 fbRNIDSIJ60 days Discontinued 10/25/23 prednisone 40 mg(2 x 20 mg)PODAILY Discontinued 10/25/23 Problems HCC Chronic cough Laryngospasm Sinusitis Allergies COVID-19 Vitals ? 10/03/23 18:32 Today 10:12 Temp 98.3 F ? BP 139/105 H ? Pulse 127 H 93 Resp Rate 18 ? O2 Sat ? 99 Height ? 5 ft 6 in Weight ? 144 lb BMI ? 23.2 Outstanding Orders [facility] Special Indicators Patient Widget No Data to Display Diagnostics Reports Lucas Farrell??58??M??1965 ? Allergy/Adv: lisinopril, Penicillins Close Sinuses CT 10/22/[address] (Signed) Ovi Harrison - 10/03/23 Chest X-Ray (Signed) Bob Lopez - 10/03/23 Chest X-Ray (Signed) Flagler,Ted - 09/19/23 Chest X-Ray (Signed) Víctor Luo - 07/26/23 Launch?Image [address] [address] [address] Scan Report Signed Patient: Lucas Farrell MR#: [id number] : 1965 Acct:[id number] Age/Sex: 58 / M ADM Date: 10/03/23 Loc: .ED Attending Dr: Ordering Physician: Dakota Patel MD Date of Service: 10/03/23 Procedure(s): CT soft tissue neck wo IV con Accession Number(s): [id number] cc: Harry Nogueira MD; Dakota Patel MD~ EXAMINATION: CT SOFT TISSUE NECK WITHOUT CONTRAST CLINICAL INFORMATION: Laryngomalacia. COMPARISON: None available. TECHNIQUE: Multidetector helical imaging was performed in the axial plane without intravenous contrast. Multiple axial reformats and coronal/sagittal reconstructions were created the technologist workstation for review. This CT examination was performed using dose optimization techniques as appropriate, variously including the following: *Automated exposure control. *Adjustment of mA and/or kV according to patient size (this includes techniques or standardized protocols for targeted exams where dose is matched to indication/reason for exam; i.e. extremities or head). *Use of iterative reconstruction technique. DLP: 455 mGy-cm FINDINGS: No significant cutaneous thickening or subcutaneous inflammation. No discrete fluid collection within the deep tissues of the neck. The premaxillary, retromaxillary, pterygopalatine fossa, orbital apical, parapharyngeal, and prelaryngeal adipose tissue is maintained. Normal appearance of the parotid, submandibular, and thyroid glands. Scattered subcentimeter lymph nodes bilaterally, none of which are pathologically enlarged. Normal mucosal contours of the pharynx. There appears to be mild circumferential mucosal edema of the larynx. No demonstrated focal lesions of the pharynx/larynx. There is effacement and laryngeal airway at the time of exam. The remainder of the airways remains widely patent. Normal appearance of the hyoid bone, thyroid cartilage, or cartilaginous trachea. No radiopaque foreign bodies. The atlantooccipital and atlantoaxial articulations remain well aligned. Straightening of the normal cervical lordosis. No evidence of acute fracture or subluxation of the cervical spine. The vertebral body heights are maintained. Moderate degenerative disc disease from C4-C7. Facet and uncovertebral joint arthropathy leads to osseous encroachment on the neural foramina from C4-C7. There is no prevertebral soft tissue swelling. The visualized portion of the skull base is without significant abnormalities. Mild mucosal thickening of the paranasal sinuses. The mastoid air cells and middle ear cavities are clear. No demonstrated significant periapical odontogenic disease. CT Upper Chest: The visualized lung apices and upper mediastinum are within normal limits. CT/CT soft tissue neck wo IV con IMPRESSION: 1. Potential mild circumferential mucosal edema of the larynx. No demonstrated focal lesions of the pharynx/larynx. There is effacement of the laryngeal airway at the time of exam (it would be difficult to assess if this narrowing is fixed or transitory based on CT at one time point). The remainder of the airways remains widely patent. 2. No additional focal lesion, collection, or lymphadenopathy within the soft tissues of the neck. Dictated By: Ovi Harrison DO Signed By: <Electronically signed by Ovi Harrison DO in OV> 10/03/23 1625 Assessment & Plan Assessment & Plan (1) Chronic cough: Code(s): R05.3 - Chronic cough Category: Medical (2) Laryngospasm: Code(s): J38.5 - Laryngeal spasm Category: Medical (3) Sinusitis: Code(s): J32.9 - Chronic sinusitis, unspecified Category: Medical Qualifiers: Chronicity: subacute Sinusitis location: maxillary Qualified Code(s): J01.00 - Acute maxillary sinusitis, unspecified (4) Allergies: Code(s): T78.40XA - Allergy, unspecified, initial encounter Category: Medical Qualifiers: Encounter type: initial encounter Qualified Code(s): T78.40XA - Vince rgy, unspecified, initial encounter Plan benzonates as needed start Neti bottle with distilled water only Mucinex as needed hypoallergenic covers for the bedding F/U with ENT F/U 6 months Coding Level of Care Code Est Pt Level 4 (69059) Diagnoses Chronic cough R05.3 Laryngospasm J38.5 Subacute maxillary sinusitis J01.00 Chronicity: subacute Sinusitis location: maxillary Allergy, initial encounter T78.40XA Encounter type: initial encounter Time Spent (min) 17
[2023-10-25 10:12] VITALS: PULSE 93; O2SAT 99; BMI 23.2
== END 2023-10-25 10:38 | disposition home or self-care (01) ==
PROVIDERS: PCP Hospitalist; Visit Provider Hospitalist
DX: R05.3 Chronic cough (principal); J38.5 Laryngeal spasm; J01.00 Acute maxillary sinusitis, unspecified; T78.40XA Allergy, unspecified, initial encounter
CPT/HCPCS: 99214

== ENCOUNTER → 2023-10-25 10:07 | Outpatient (BNVA) | payer BC, SELFPAY | PROVIDERS: PCP Hospitalist; Visit Provider Hospitalist ==

== ENCOUNTER 2023-12-05 08:02 | Outpatient (REF) | payer BC, SELFPAY ==
--- NOTE | ~2023-12-05 | FL_ITS ---
EXAMINATION: XR FLUOROSCOPY UPPER GI WITH AIR CLINICAL INFORMATION: Cough, stridor COMPARISON: None TECHNIQUE: Fluoroscopic air contrast upper GI examination was performed utilizing standard techniques with thin and thick barium and effervescent granules. Numerous spot images were obtained. FINDINGS: Lateral cine images of the oropharynx and hypopharynx demonstrate normal swallow mechanism with normal epiglottic inversion and soft palate elevation. No tracheal penetration, glottic or subglottic aspiration identified. No nasopharyngeal reflux present. Hypopharyngeal structures appear normal without evidence of mass or diverticulum. There was no significant cricopharyngeal achalasia. Dual and single contrast images of the esophagus demonstrate normal caliber and contour. There is a granular appearance of the mid and distal esophageal mucosa. In addition, there is felinization of the mid and distal esophageal mucosa. No evidence of stricture, mass, or ulcerations identified. Esophageal peristalsis was normal. A small type I hiatal hernia is present. Gastroesophageal reflux is seen up to the level of the aortic arch. Dual contrast and single contrast images of the stomach demonstrated a normal contour. The gastric mucosal folds have a thickened appearance that's may representing gastritis, however, this may also be due to underdistention of the stomach from poor tolerance of the effervescent granules. No evidence of mass, ulceration, or other abnormality. Contrast remains in the stomach throughout the entire examination, with only a small portion entering the duodenal bulb. FLUOROSCOPY TIME: 5 minutes 41 seconds Number of Spot Images: 13 Number of Cine: 12 DOSE AREA PRODUCT: 3196 uGy-m2 (microgray-meter squared) FL/FL barium swallow with air IMPRESSION:2 1. Granular appearance of the mid and distal esophageal mucosa that likely represents reflux esophagitis. Patulous esophagus. 2. Felinization of the mid and distal esophageal mucosa. This is a benign finding that is associated with gastroesophageal reflux. 3. Small type I hiatal hernia 4. Moderate gastroesophageal reflux 5. Mildly thickened appearance of the gastric mucosal folds that may suggest gastritis, however, this may also be due to underdistention of the stomach from poor tolerance of the effervescent granules. 6. Significant delay in gastric emptying. Only a small portion of the barium reaches the duodenal bulb. Etiology is unclear. A functional disorder such as gastroparesis cannot be excluded as well. Recommend correlation with EGD. Consider gastric emptying study as well. This procedure was performed by Kartik Munoz PA-C, and supervised by Dr. Wu
== END 2023-12-05 08:03 | disposition home or self-care (01) ==
LOC: HO.XRAY 08:02
PROVIDERS: PCP Hospitalist; Visit Provider Otolaryngology
DX: R13.10 Dysphagia, unspecified (principal)
CPT/HCPCS: 74221

== ENCOUNTER → 2023-12-05 08:03 | Outpatient (BNV) | payer BC, SELFPAY | PROVIDERS: PCP Hospitalist; Visit Provider Physician Assistant Surgical | DX: R06.1 Stridor (principal); R05.9 Cough, unspecified | CPT/HCPCS: 74246 ==

== ENCOUNTER 2024-03-24 12:55 | Outpatient (AMB) | payer BC, SELFPAY ==
--- NOTE | 2024-03-24 12:57 | MHC.OFFVIS ---
Vital Signs 03/24/24 13:59 Height 5 ft 6 in Weight 150 lb 5.684 oz BMI 24.3 BP 144/93 H Blood Pressure Location Rt brachial Position Sitting Pulse 102 H Pulse Source Pulse Oximeter Pulse Oximetry (%) 97 Oxygen Delivery Method Room Air Intake Visit Reasons: gastritis Intake Note: Pt presents to the office today for c/o gastritis. Pt denies any N/V/D. Allergies lisinopril Allergy (Severe, Verified 03/24/24 13:05) Angioedema Penicillins Adverse Reaction (Intermediate, Verified 03/24/24 13:05) Palpitations HPI Comments Details: 58 y.o M who is here for abnl barium swallow. Pt reports prev hx of angioedema 2/2 lisinopril use. Now off lisinopril. Has been seeing cards and ENT for this who ordered barium swallow which has abnormal findings as below. 12/05/23: 1. Granular appearance of the mid and distal esophageal mucosa that likely represents reflux esophagitis. Patulous esophagus. 2. Felinization of the mid and distal esophageal mucosa. This is a benign finding that is associated with gastroesophageal reflux. 3. Small type I hiatal hernia 4. Moderate gastroesophageal reflux 5. Mildly thickened appearance of the gastric mucosal folds that may suggest gastritis, however, this may also be due to underdistention of the stomach from poor tolerance of the effervescent granules. 6. Significant delay in gastric emptying. Only a small portion of the barium reaches the duodenal bulb. Etiology is unclear. A functional disorder such as gastroparesis cannot be excluded as well. Recommend correlation with EGD. Consider gastric emptying study as well. Main issue now is heartburn and regurgitation. Worse after food estuardo after fatty foods. Noticing it while laying down. No issues swallowing. XR eso also suggests ? delayed emptying but pt does not report any abd discomofrt, nausea, vomiting, bloating, loss of appetite. CRC screening: cologuard 3y ago was negative. Due for screening. [facility] Medical History Chronic cough Laryngospasm Sinusitis Allergies Hypertension Social History Alcohol intake: never Patient Tobacco Use Status: Never used Tobacco Review of Systems Const All systems reviewed & are unremarkable except as noted in HPI and below Physical Exam Vital Signs: No apparent distress Nonicteric Abdomen soft, nondistended Alert and oriented x3, normal gait Assessment & Plan Assessment & Plan (1) Chronic cough: Code(s): R05.3 - Chronic cough Category: Medical (2) Esophagitis: Code(s): K20.90 - Esophagitis, unspecified without bleeding Category: Medical (3) GERD (gastroesophageal reflux disease): Code(s): K21.9 - Gastro-esophageal reflux disease without esophagitis Category: Medical (4) Encounter for colorectal cancer screening: Code(s): Z12.11 - Encounter for screening for malignant neoplasm of colon; Z12.12 - Encounter for screening for malignant neoplasm of rectum Category: Medical Plan Reviewed barium swallow results and findings of GERD, esophagitis reflux vs EoE (trachealization/felinization of esophagus noted on XR) and gastritis. Plan: - Start omeprazole 20 once daily 30-40 mins before breakfast - EGD to be booked for direct visualization and biopsies - Pt aware to HOLD ppi x 2 weeks before procedure Pt also due for CRC screening. Discussed that can cont cologuard vs opt for colo - can long colo it at the same time as EGD. Plan: - [place] to be booked - Suprep sent as per pt's preference - Instructions reviewed - handout given FOllow up after procedures Medications: New omeprazole 20 mg PO DAILY 90 days 90 caps 1RF sodium,potassium,mag sulfates 17.5-3.13-1.6 gram (Suprep Bowel Prep Kit) DILUTE as per written instructions provided 354 mL 0RF Coding Level of Care Code New Pt Level 4 (26893) Diagnoses Chronic cough R05.3 Esophagitis K20.90 GERD (gastroesophageal reflux disease) K21.9 Encounter for colorectal cancer screening Z12.11; Z12.12
[2024-03-24 13:59] VITALS: BP 144/93; PULSE 102; O2SAT 97; BMI 24.3
== END 2024-03-24 14:18 | disposition home or self-care (01) ==
PROVIDERS: PCP Hospitalist; Visit Provider Internal Medicine
DX: R05.3 Chronic cough (principal); K20.90 Esophagitis, unspecified without bleeding; K21.9 Gastro-esophageal reflux disease without esophagitis; Z12.11 Encounter for screening for malignant neoplasm of colon; Z12.12 Encounter for screening for malignant neoplasm of rectum
CPT/HCPCS: 99204

== ENCOUNTER → 2024-03-24 12:55 | Outpatient (BNVA) | payer BC, SELFPAY | PROVIDERS: PCP Hospitalist; Visit Provider Internal Medicine ==

== ENCOUNTER 2024-04-24 15:12 | Outpatient (AMB) | payer BC, SELFPAY ==
[2024-04-24 15:16] VITALS: BP 118/70; PULSE 89; O2SAT 98; BMI 24.0
--- NOTE | 2024-04-24 15:16 | MHC.OFFVIS ---
Vital Signs 04/24/24 15:16 Height 5 ft 6 in Weight 149 lb BMI 24.0 BP 118/70 Blood Pressure Location Lt brachial Position Sitting Pulse 89 Pulse Source Pulse Oximeter Pulse Oximetry (%) 98 Oxygen Delivery Method Room Air Intake Visit Reasons: Asthma [employer] Required: No Allergies lisinopril Allergy (Severe, Verified 04/24/24 15:19) Angioedema Penicillins Adverse Reaction (Intermediate, Verified 04/24/24 15:19) Palpitations HPI Comments Details: Or The patient is a 58-year-old gentleman with a remote history of childhood asthma. Now presenting with worsening respiratory symptoms. Apparently back in late June the patient did have a bout of COVID-19. He was sick during that time with a worsening cough. Although he was given medications and his symptoms did resolve any did have a complete recovery. After that sometime in July the patient did go abroad to [facility] in other countries in the surrounding area. He was going on program machine therefore he was exposed to mid in some people. He was not wearing a mask. He did come back and you started becoming sick with chest congestion cough and also significant difficulty with his breathing. He went to see his primary care doctor felt to have some wheezing and was prescribed some prednisone and antibiotics. He was given up some point Augmentin at some point doxycycline. He was also placed on prednisone with partial improvement of the symptoms. He also had been taking Benadryl. His shortness of breath and cough so significant that he could not even work. He did have a rescue inhaler that does given some partial improvement of the symptoms. Finally his symptoms were getting severe in decided to come into the ER. He was seen here. Had a chest x-ray that was clear. He was documented to have diminished breath sounds was concerned about his oxygen. He was given prednisone 60 mg which improved his symptoms dramatically. Here in the office we did have him for 6 late and also cough and during those episodes he started developing some difficulty breathing. He states that his triggers could be drinking something hot like a hot soup can make him have a hard time with his breathing. He describes difficulty is mainly breathing in and also when he has having an episode he has a hard time speaking. He is describing some degree of laryngeal spasms. In addition to that has had significant sinus congestion postnasal drip. On examination I do not appreciate any stridor. His lungs are diminished but without any expiratory wheezing at this time. The patient does have some swelling over the left maxillary sinus with significant erythema and irritation to the mucosa lining. Does have some evidence of postnasal drip. 10/25/2023 the patient is here for a pulmonary follow-up visit. Overall he has doing a lot better. He still has had some minimal episodes similar to the ones the broaden to be evaluated. Although about 80-90% improvement overall he states. He also has an intermittent cough. The cough sometimes result in the coughing spasm. He did undergo a CT scan of the sinuses and will be following up with ENT for that. In addition to that he does have a barium swallow scheduled. He completed the prednisone also all the antibiotics. At this point will try to minimize on his cough. We did talk about improving his postnasal drip using a Neti bottle. I did have available taught him on use it with distilled water only. In addition to that he can use Benzonate cough drops just to help him with the cough intermittently avoid does coughing spells. His blood work was reassuring. He did have allergies to dust mites and he can work on using hypoallergenic covers and making sure the minimize his carpeting in his home. 04/24/2024 the patient is here for a pulmonary follow-up visit. Overall he is feeling a lot better. He does state that sometimes he wakes up with a dry mouth and also breathing through his mouth some difficulties. His intermittent. He denies any snoring. Denies any waking up tired. He did have a CT scan of the neck at some point that we visualize that there was some edema in the larynx area and likely some narrowing as well. There explained to him that therefore he has a high risk for developing sleep apnea. I did offer him sleep study will consider it. He does have cardiovascular risk factors. If he definitely develops any concerning symptoms or any daytime drowsiness he should call to get a sleep study. In the meantime the patient has been continued to use his nasal therapy with good effect. His cough is overall better and feels better. The patient is going to have an endoscopy. He does have a hiatal hernia and reflux disease. He does sleep elevated which is good and she continue with the reflux diet. At this point the patient will follow-up in a year. If he develops any worsening symptoms he will call for an earlier assessment. [facility] Medical History Chronic cough Laryngospasm Sinusitis Allergies Hypertension Social History Alcohol intake: never Patient Tobacco Use Status: Never used Tobacco Review of Systems Const Denies fever(s) and Reports snoring Eyes Reports no additional complaints ENT Reports nasal congestion, Denies nasal discharge, Denies post nasal drip, Denies sinus pain and Denies sinus pressure Card Denies chest pain and Denies dyspnea Resp Reports cough, Denies dyspnea, Reports snoring and Denies wheezing GI Reports no additional complaints Musc Reports no additional complaints Skin/Breast Denies rash Neuro Reports no additional complaints Robbin/Lymph Denies lymphadenopathy Aller/Immun Denies wheezing Physical Exam Vital Signs: Last Vital Signs Pulse 89 04/24/24 15:16 BP 118/70 04/24/24 15:16 Pulse Ox 98 04/24/24 15:16 Oxygen Delivery Method Room Air 04/24/24 15:16 BMI result Body Mass Index 24.0 Const General: comfortable Neck Neck: Yes supple Chest Chest palpation & inspection: normal inspection of the chest Resp Effort & Inspection: normal respiratory effort Auscultation: clear to auscultation bilaterally, no crackles and no wheezes Cardio Heart sounds: S1 normal heart sound present and S2 normal heart sound present GI Palpation (GI): Soft to palpation Skin General skin exam: no rashes or lesions noted Extrem General: Yes no clubbing, cyanosis or edema Assessment & Plan Assessment & Plan (1) Chronic cough: Code(s): R05.3 - Chronic cough Category: Medical (2) Allergies: Code(s): T78.40XA - Allergy, unspecified, initial encounter Category: Medical Qualifiers: Encounter type: initial encounter Qualified Code(s): T78.40XA - Allergy, unspecified, initial encounter Plan benzonates as needed Neti bottle with distilled water only Mucinex as needed hypoallergenic covers for the bedding F/U with ENT consider PSG F/U 12 months Medications: New prednisone PO daily; Take 6 tabs daily x 3 days, then 5 tabs x 3 days, then 4 tabs x 3 days, then 3 tabs x 3 days, then 2 tabs daily x 3 days, then 1 tab x 3 days to complete. 63 tabs 0RF 18 days doxycycline monohydrate 100 mg PO BID 28 tabs 0RF 14 days Coding Level of Care Code Est Pt Level 4 (45988) Diagnoses Chronic cough R05.3 Allergy, initial encounter T78.40XA Encounter type: initial encounter Time Spent (min) 16
== END 2024-04-24 15:37 | disposition home or self-care (01) ==
PROVIDERS: PCP Hospitalist; Visit Provider Hospitalist
DX: R05.3 Chronic cough (principal); T78.40XA Allergy, unspecified, initial encounter
CPT/HCPCS: 99214

== ENCOUNTER → 2024-04-24 15:12 | Outpatient (BNVA) | payer BC, SELFPAY | PROVIDERS: PCP Hospitalist; Visit Provider Hospitalist ==

== ENCOUNTER 2024-07-31 06:07 | Day surgery (SDC) | payer BC, SELFPAY ==
--- OUTSIDE RECORDS SUMMARY | 2024-06-11 02:16 | XMS_ITS ---
Author Name [facility] Organization Unknown History of Medication Use Medication Directions Dispensed Refills Start Date End Date Stat amLODIPineTake (oral )No date recordedtabletNo frequency recordedoralNo set duration recordedNo set duration amount recordedactive2.5mg 09/15/2023 a ctive lisinopriL-hydrochlo rothiazid eTake (oral)No date recordedtabletNo frequency recordedoralNo set duration recordedNo set duration amount [id number] 09/15/2023 active benzonatateTake (oral)[id number] frequency recordedoralNo set duration recordedNo set duration amount [id number] 09/15/2023 active doxycycline hyclateT carissa 1 capsule (Oral) 2 times per day for 7 [id number] times per [id number] 09/15/2023 active promethazine-DMTake 5 ml (oral) every 4-6 hours for 5 [id number] 4-6 [id number] /5 mL 09/15/2023 active cefPODOXimeTake 1 Ta blet (oral) 2 times per day for 7 [id number] times per [id number] 09/15/2023 acti ve No medication inform ation recorded 09/12/2023 active Problems Problem Status Onset Date Problem Type Date of Resoluti on Source Acute upper respiratory infection, unspecified active 2023-09-10 ProblemAct [facility] Hypertension active ProblemAct [facility] Pneumonia, unspecified organism active 2023-09-12 ProblemAct [facility] Acute cough active 2023-09-11 ProblemAct [facility] Cough, unspecified active 2023-09-12 ProblemAct [facility]
--- OUTSIDE RECORDS SUMMARY | 2024-06-11 02:16 | XMS_ITS | Patient Health Record ---
Author Organization [facility] Address [address] [place] [address] Care Team Providers Care Commercial Lending Assistant Name Role Phone MANNIE GARVEY Primary Care Provider Renan Vidal Unavailable [phone] Allergies Allergen (clinical drug ingredient) Drug/Non Drug Allergy documented on EMR Reaction Allergy Type Onset Date Status penicillamine Penicillamine Unknown Drug Allergy Active Results Component Value Reference Range Notes Hgb A1c with eAG Estimation- [id number] Reviewed date:09/19/2023 09:21:16 AM Interpretation: Performing Lab:[facility], [address] [facility], Phone - [phone], Director - MDLaz Notes/Report: Hemoglobin A1c 6.1 4.8-5.6 % . Prediabetes: 5.7 - 6.4 Diabetes: >6.4 Glycemic control for adults with diabetes: <7.0 Estim. Avg Glu (eAG) 128 Glucose-[id number] Reviewed date:09/11/2023 03:00:44 PM Interpretation: Performing Lab:[facility], [address] [facility], Phone - [phone], Director - MDJodry Notes/Report: Glucose 110 70-99 mg/dL PSA, SCREEN Reviewed date:07/13/2023 08:01:31 AM Interpretation: Performing Lab:Testing performed or reported by [facility], a Service of [facility], [address] [place] [address] Imtiaz Becker MD, Student Dean [place]# [id number] Notes/Report: PSA 0.6 (0-4) NG/ML TEST PERFORMED USING THE CRYSTAL ELECTROCHEMILLUMINESCENCE TOTAL PSA ASSAY. PSA VALUES OBTAINED WITH OTHER ASSAY METHODS OR KITS CANNOT BE USED INTERCHANGEABLY. MICROALBUMIN, URINE Reviewed date:09/19/2023 10:13:20 AM Interpretation: Performing Lab:Testing performed or reported by [facility], a Service of [address] [address] Imtiaz Becker MD, Student Dean [facility]# [id number] Notes/Report: MICRO-ALBUMIN 85.0 (<20) MG/L The urine microalbumin test is designed to monitor renal function. When screening for Bence Luque proteinuria, urine electrophoresis is recommended. MALB/CREAT RATIO 29.7 (0-20) MG/GM URINE CREAT FOR MICRO ALBUMIN 285.7 LIPID PANEL Reviewed date:07/13/2023 08:03:29 AM Interpretation: Performing Lab:Testing performed or reported by [facility], a Service of [address] [address] Imtiaz Becker MD, Student Dean [facility]# [id number] Notes/Report: CHOLESTEROL, TOTAL 76 (<200) MG/DL TRIGLYCERIDE 55 (<150) MG/DL HDL CHOL 35 (>39) MG/DL LDL CHOLESTEROL, CALCULATED 30 (0-130) MG/DL NON HDL CHOLESTEROL (CALC) 41 (<160) MG/DL HEMOGLOBIN A1C WITH EST GLUC OSE Reviewed date:09/06/2023 11:10:01 AM Interpretation: Performing Lab:Testing performed or reported by [facility], a Service of [address] [address] Imtiaz Becker MD, Student Dean [facility]# [id number] Notes/Report: HEMOGLOBIN A1C 6.0 (4.0-5.6) % MONITORING: In known diabetic patients, hemoglobin A1c targets should be discussed with health care provider. DIAGNOSTIC USE: The [place] [employer] (ADA) and the World Health [...] 43, Supplement 1 ESTIMATED AVERAGE GLUCOSE 126 COMPREHENSIVE METABOLIC PANE L Reviewed date:09/04/2023 01:48:03 PM Interpretation: Performing Lab:Testing performed or reported by [facility], a Service of [facility], [address] [place] [address] Imtiaz Becker MD, Student Dean [facility]# [id number] Notes/Report: GLUCOSE 111 (70-99) MG/DL BUN 16 [...] GFR from serum creatinine, age and sex. Reason For Referral Reason Evaluation and manag ement Diagnosis 1 Gastro-esophageal re flux disease without esophagitis (K21.9) Diagnosis 2 Gastritis, unspecifi ed, without bleeding (K29.70) Referral Organization [facility] Referring Provider First Name MANNIE Referring Provider Last Name GURU Referring Provider Speciality Internal M edicine Referred Provider undefined Referred Provider Specialty Gastroentero logy General Notes Referral faxed to [facility] - Department will call the patient for scheduling., Mabel Palmer 12/20/2023 03:36:52 PM > Referral Priority Routine Reason Evaluation and manag ement Diagnosis 1 Gastritis, unspecifi ed, without bleeding (K29.70) Referral Organization [facility] Referring Provider First Name Renan Referring Provider Last Name Young Referred Provider Specialty Gastroentero logy General Notes Referral faxed to [facility] [place] - Dept will call patient for scheduling., Mabel Palmer 01/14/2024 03:46:09 PM > Referral Priority Urgent Medications Medication SIG (Take, Route, Frequency, Duration) Notes Start Date End Date Status Clotrimazole 1 % 1 application Externally Twice a day for 28 day(s) 12/15/2021 Unknown Lotrimin AF 1 % 1 application Externally Twice a day for 28 day(s) 12/15/2021 Unknown predniSONE 20 MG 1 tablet Orally Once a day for 7 days 09/14/2023 Not-Taking Albuterol Sulfate HFA 108 (90 Base) MCG/ACT 1 puff as needed Inhalation every 6 hrs for 30 days 09/14/2023 Not-Taking amLODIPine Besylate 10 MG 1 tablet Orall y Once a day for 30 days Active Albuterol Sulfate (2.5 MG/3ML) 0.083% 3 mL as needed Inhalation every 6 hrs for 30 days 09/19/2023 Not-Taking Fluticasone Propionate 50 MCG/ACT 1 spray in each nostril Nasally 2 TIMES DAY for 30 days 09/14/2023 Not-Taking hydroCHLOROthiazide 12.5 MG 1 tablet in the morning Orally Once a day for 30 days 10/04/2023 Active Famotidine 40 MG TAKE 1 TABLET BY MOUTH EVERY DAY AT BEDTIME FOR 30 DAYS for 90 Active Lansoprazole 30 MG 1 tablet Orally Once a day for 30 days 12/24/2023 Active Immunizations Vaccine Route Administration Date Status Comme nts COVID 19 Pfizer Unknown 10/09/2020 Administered COVID 19 Pfizer Unknown 10/31/2020 Administered COVID 19 Pfizer Unknown 06/18/2021 Administered Fluzone QD IM Intramuscular 06/15/2022 Administered Influenza Unknown 02/28/2024 Administered Social History Tobacco Use: Social History Observation Description Date Details (start date - stop date) Never Smoker NA - NA Tobacco Use/Smoking Question Answer Notes Are you a nonsmoker Alcohol Screen (Audit-C) Question Answer Notes Did you have a drink containing alcohol in the p ast year? No Points 0 Interpretation Negative Problems Problem Type SNOMED Code ICD Code Onset Dates Problem Status W/U Status Risk Notes Problem Gastro-esophageal reflux disease without esophagitis (548766148) Gastro-esophage al reflux disease without esophagitis (K21.9) Active confirmed Problem Gastroduodenitis (596046964) Gastritis, unspecified, without bleeding (K29.70) Active confirmed Problem Proteinuria (64328700) Proteinuria, unspecified (R80.9) Active confirmed Problem Adult health examination (540684359) Encounter for general adult medical examination without abnormal findings (Z00.00) Active confirmed Problem Essential hypertension (32326478) Essential (primary) hypertension (I10) Active confirmed Problem History of disease caused by Severe acute respiratory syndrome coronavirus 2 (situation) (230385940395608305 ) Personal history of COVID-19 (Z86.16) Active confirmed Vital Signs Heart Rate 77 /min 01/14/2024 Temperature 97.8 degrees Fahrenheit 01/14/2024 Blood pressure diastolic 78 mm Hg 01/14/2024 Oximetry 99 % 09/14/2023 Height 65.75 in 01/14/2024 Blood pressure systolic 124 mm Hg 01/14/2024 Weight 151 lbs 01/14/2024 BMI 24.56 kg/m2 01/14/2024 Encounters Encounter Location Date Provider Diagnosis [address] [place] [address] 07/12/2023 CHAND GUL Essential (primary) hypertension I10 [address] [place] [address] 09/14/2023 [facility] GUL Essential (primary) hypertension I10 and Acute upper respiratory infection, unspecified J06.[address] [place] [address] 01/14/2024 Ghadeer Mazloum Essential (primary) hypertension I10 ; Gastritis, unspecified, without bleeding K29.70 and Impaired fasting blood sugar R73.[address] [place] [address] 09/04/2023 [facility] GUL Impaired fasting glucose R73.[address] [place] [address] 09/19/2023 CHAND GUL [address] [place] [address] 09/19/2023 [facility] [address] [facility] [address] [place] [address] 10/04/2023 [facility] [address] [place] [address] 10/17/2023 [facility] [address] [facility] [address] [place] [address] 12/20/2023 [facility] [address] [place] [address] 12/24/2023 CH[facility] GU Assessments Encounter Date Diagnosis (ICD Code) Assessment Notes Treatment Notes Treatment Clinical Notes Section Notes 09/04/2023 Impaired fasting glucose (ICD-10 - R73.01) 09/14/2023 Acute upper respiratory infection, unspecified (ICD-10 - J06.9) Mr Farrell is 58 years old gentleman with hypertension who presented to office with upper respiratory tract symptoms of facial pain, postnasal dripping, headaches. He had been to urgent care and he was started on antibiotics with no significant relief. Plan is as follows Upper respiratory tract infection. Most likely viral. He was started on doxy for question of asthma which she will continue doxycycline 100 mg twice a day which will cover for atypical pneumonias. He is given albuterol inhaler when necessary, prednisone 20 mg 1 tablet daily for reactive airways and Flonase nasal spray. Take Tylenol 500 mg 1 tablet 3 times a day schedule and had appropriate hydration recommended 09/14/2023 Essential (primary) hypertension (ICD-10 - I10) Mr Farrell is 58 years old gentleman with hypertension who presented to office with upper respiratory tract symptoms of facial pain, postnasal dripping, headaches. He had been to urgent care and he was started on antibiotics with no significant relief. Plan is as follows Upper respiratory tract infection. Most likely viral. He was started on doxy for question of asthma which she will continue doxycycline 100 mg twice a day which will cover for atypical pneumonias. He is given albuterol inhaler when necessary, prednisone 20 mg 1 tablet daily for reactive airways and Flonase nasal spray. Take Tylenol 500 mg 1 tablet 3 times a day schedule and had appropriate hydration recommended 01/14/2024 Gastritis, unspecified, without bleeding (ICD-10 - K29.70) Mr Farrell is 58 years old gentleman with hypertension is here for follow-up. Plan as follows: HTN: - BP is well controlled on current regimen. Lisinopril was previously discontinued due to vocal laryngeal edema. Gastritis/possib le gastroparesis/Hi atal Hernia/moderate reflux: - Patient currently is asymptomatic. Denies dysphagia, odynophagia. Weight is stable. XR fluroscopy showed granular appearance of mid and distal esophageal mucosa due to acid reflux. Mild type 1 hiatal hernia. Questioning gastroparesis due to significant delayed gastric emptying. EGD is recommended as well as gastric emptying scan. Lucas is currently on the right regimen. We ordered EGD. Referred to GI. Impaired fasting glucose; A1C is elevated from 6.0 to 6.1. Dietary modifications is highly recommended. We will repeat A1c. Patient seen and examined with PA. Agree with the above mentioned assessment and plan 01/14/2024 Essential (primary) hypertension (ICD-10 - I10) Mr Farrell is 58 years old gentleman with hypertension is here for follow-up. Plan as follows: HTN: - BP is well controlled on current regimen. Lisinopril was previously discontinued due to vocal laryngeal edema. Gastritis/possib le gastroparesis/Hi atal Hernia/moderate reflux: - Patient currently is asymptomatic. Denies dysphagia, odynophagia. Weight is stable. XR fluroscopy showed granular appearance of mid and distal esophageal mucosa due to acid reflux. Mild type 1 hiatal hernia. Questioning gastroparesis due to significant delayed gastric emptying. EGD is recommended as well as gastric emptying scan. Lucas is currently on the right regimen. We ordered EGD. Referred to GI. Impaired fasting glucose; A1C is elevated from 6.0 to 6.1. Dietary modifications is highly recommended. We will repeat A1c. Patient seen and examined with PA. Agree with the above mentioned assessment and plan 07/12/2023 Essential (primary) hypertension (ICD-10 - I10) Lucas is a 58-year-old gentleman with hypertension here for annual physical. Plan is as follows: Hypertension with proteinuria. Blood pressure well controlled on current regimen. Advised appropriate hydration. Ordered EBCT Calcium Score because of strong family history of coronary artery disease. General health concerns discussed with patient. 01/14/2024 Impaired fasting blood sugar (ICD-10 - R73.01) Mr Farrell is 58 years old gentleman with hypertension is here for follow-up. Plan as follows: HTN: - BP is well controlled on current regimen. Lisinopril was previously discontinued due to vocal laryngeal edema. Gastritis/possib le gastroparesis/Hi atal Hernia/moderate reflux: - Patient currently is asymptomatic. Denies dysphagia, odynophagia. Weight is stable. XR fluroscopy showed granular appearance of mid and distal esophageal mucosa due to acid reflux. Mild type 1 hiatal hernia. Questioning gastroparesis due to significant delayed gastric emptying. EGD is recommended as well as gastric emptying scan. Lucas is currently on the right regimen. We ordered EGD. Referred to GI. Impaired fasting glucose; A1C is elevated from 6.0 to 6.1. Dietary modifications is highly recommended. We will repeat A1c. Patient seen and examined with PA. Agree with the above mentioned assessment and plan Plan Of Treatment Pending Test Test Name Order Date Electrocardiogram (EKG) 02/20/2018 Esophagogastroduodenoscopy (EGD) 024 Ultrasound : Kidneys 04/16/2018 EBCT Coronary calcium score 07/12/2023 COMPREHENSIVE METABOLIC PANEL 09/30/2021 GLUCOSE 09/04/2023 HEMOGLOBIN A1C 12/09/2021 HEMOGLOBIN A1C WITH EST GLUCOSE 06/15/20 22 HEMOGLOBIN A1C WITH EST GLUCOSE 09/04/19 24 LIPID PANEL 09/30/2021 MICROALBUMIN, URINE 09/30/2021 Hgb A1c with eAG Estimation-[id number] 01/13 Future Test Test Name Order Date COMPREHENSIVE METABOLIC PANEL 06/15/2022 LIPID PANEL 06/15/2022 MICROALBUMIN, URINE 06/15/2022 COMPREHENSIVE METABOLIC PANEL 01/26/2023 HEMOGLOBIN A1C WITH EST GLUCOSE 01/27/20 23 LIPID PANEL 01/26/2023 MICROALBUMIN, URINE 01/26/2023 PSA, SCREEN 01/26/2023 Next Appt Details Provider Name:MANNIE GARVEY , 07/17/2024 02:30:00 PM, [address] [place] [address], [place], [address], Insurance Providers Payer Name Payer Address Payer Phone Subscriber Number Group Number Insured Name Patient Relationship to Insured Coverage Start Date Coverage End Date [facility] of [facility] [address] [place] [address] [id number] Lucas Farrell Self - patient is the insured [facility] of [facility] [address] [place] [address] [id number] Lucas Farrell Self - patient is the insured 7 Medical (General) History Medical History History ICD Code Hypertension Impaired fasting glucose Proteinuria Personal history of COVID-19 Surgical History Surgery Date(Month/Year) Hospitalization History Reason Date(Month/Year)
--- OUTSIDE RECORDS SUMMARY | 2024-06-11 02:16 | XMS_ITS ---
Author Organization [facility] Address [address] [facility] [address] [place] [address] Care Team Providers Care Benefits Sales Consultant Name Role Phone MANNIE GARVEY Primary Care Provider [phone] Renan Vidal Unavailable [phone] Allergies Allergen (clinical drug ingredient) Drug/Non Drug Allergy documented on EMR Reaction Allergy Type Onset Date Status penicillamine Penicillamine Unknown Drug Allergy Active Reason For Referral Reason Evaluation and manag ement Diagnosis 1 Gastritis, unspecifi ed, without bleeding (K29.70) Referral Organization [facility] Referring Provider First Name Renan Referring Provider Last Name Young Referred Provider Specialty Gastroentero logy General Notes Referral faxed to [facility] in [place] - Dept will call patient for scheduling., Mabel Palmer 01/14/2024 03:46:09 PM > Referral Priority Urgent REASON FOR VISIT 6 month f/u Medications Medication SIG (Take, Route, Frequency, Duration) Notes Start Date End Date Status Clotrimazole 1 % 1 application Externally Twice a day for 28 day(s) 12/15/2021 Unknown Lotrimin AF 1 % 1 application Externally Twice a day for 28 day(s) 12/15/2021 Unknown amLODIPine Besylate 10 MG 1 tablet Orall y Once a day for 30 days Active hydroCHLOROthiazide 12.5 MG 1 tablet in the morning Orally Once a day for 30 days 10/04/2023 Active Albuterol Sulfate (2.5 MG/3ML) 0.083% 3 mL as needed Inhalation every 6 hrs for 30 days 09/19/2023 Not-Taking Fluticasone Propionate 50 MCG/ACT 1 spray in each nostril Nasally 2 TIMES DAY for 30 days 09/14/2023 Not-Taking Famotidine 40 MG 1 tablet at bedtime Orally Once a day for 30 days 12/24/2023 Active Lansoprazole 30 MG 1 tablet Orally Once a day for 30 days 12/24/2023 Active predniSONE 20 MG 1 tablet Orally Once a day for 7 days 09/14/2023 Not-Taking Albuterol Sulfate HFA 108 (90 Base) MCG/ACT 1 puff as needed Inhalation every 6 hrs for 30 days 09/14/2023 Not-Taking Problems Problem Type SNOMED Code ICD Code Onset Dates Problem Status W/U Status Risk Notes Problem Essential hypertension (92985851) Essential (primary) hypertension (I10) Active confirmed Vital Signs Temperature 97.8 degrees Fahrenheit 01/14/20 Heart Rate 77 /min 01/14/2024 Blood pressure systolic 124 mm Hg 01/14/20 Blood pressure diastolic 78 mm Hg 024 Weight 151 lbs 01/14/2024 BMI 24.56 kg/m2 01/14/2024 Height 65.75 in 01/14/2024 Encounters Encounter Location Date Provider Diagnosis [facility] [address] [address] 01/14/2024 Renan Josiastea Essential (primary) hypertension I10 ; Gastritis, unspecified, without bleeding K29.70 and Impaired fasting blood sugar R73.01 Assessments Encounter Date Diagnosis (ICD Code) Assessment Notes Treatment Notes Treatment Clinical Notes Section Notes 01/14/2024 Essential (primary) hypertension (ICD-10 - I10) [...] the above mentioned assessment and plan 01/14/2024 Gastritis, unspecified, without bleeding (ICD-10 - [...] the above mentioned assessment and plan 01/14/2024 Impaired fasting blood sugar (ICD-10 - [...] mentioned assessment and plan Plan Of Treatment Medication Medication Name Sig Start Date Stop Date Notes amLODIPine Besylate 10 MG 1 tablet Orall y Once a day for 30 days hydroCHLOROthiazide 12.5 MG 1 tablet in the morning Orally Once a day for 30 days 10/04/2023 Pending Test Test Name Order Date Esophagogastroduodenoscopy (EGD) 024 Hgb A1c with eAG Estimation-[id number] 01/13 Referrals Referral Date Details 01/14/2024 01/14/2024, Evaluati on and management Next Appt Details Follow Up: 6 Months-f/up, Re ason: Provider Name:MANNIE GARVEY , 07/17/2024 02:30:00 PM, [address] [place] [address], [place], [address], Progress Notes * Daysi FARRELLOB:1965 (58 yo M)Acc No.[id number]:01/14/2024 Progress Notes Patient:?Lucas FARRELL Provider:?Renan Vidal :1965???Age:58 Y???Sex:Male Dallin e:01/14/2024 Address:[address] [place], [place] [phone] Pcp:MANNIE GARVEY Subjective: * Chief Complaints: * ???6 month f/u * HPI: ???Internal Medicine:? Lucas is a 58-year-old gentleman with hypertension here for follow up. He is physically active and walks 2-3 miles a day. He gained 7 lbs since last visit. He does not appear anxious or depressed. He sleeps well, appetite is good. No GI or symptoms. He denies any other active issues or concerns. * ROS:?General/Constitutional:?Overall health?Good.?Change in appetite?denies.?Chills?denies.?Fever?denies.?Night sweats?denies.?Sleep disturbance?denies.?Weight gain?denies.?Weight loss?denies.?Neurologic:?Difficulty speaking?denies.?Dizziness?denies.?Gait abnormality?denies.?Headache?denies.?Loss of strength?denies.?Memory loss?denies.?Seizures?denies.?Tingling/Numbness?denies ?.?Ophthalmologic:?Blurred vision?denies.?Discharge?denies.?Dry eye?denies.?Red eye?denies.?ENT:?Change in Voice?Denies.?Cold Symptoms?Denies.?Cough?Denies.?Dizziness?Denies.?Nasal Congestion?, Admits.?Otalgia?Denies.?postnasal drip?Denies.?Blocked ear?denies.?Nosebleed?denies.?Snoring?denies.?Cardiovascular:?Diaphoresis?Denies.?Pedal Edema?Denies.?PND (Paroxsymal nocturnal dyspnea)?Denies.?Chest pain?denies.?Difficulty laying flat?denies.?Dyspnea on exertion?denies.?Heart murmur?denies.?Orthopnea?denies.?Respiratory:?Snoring?denies.?Asthma?denies.?Cough?denies.?Shortness of breath with exertion?denies.?Sputum production?denies.?Wheezing?denies.?Gastrointestinal:?Change in bowel habits?denies.?Constipation?denies.?Decreased appetite?denies.?Diarrhea?denies.?Heartburn?denies.?Nausea?denies.?Vomiting?ashli es.?Musculoskeletal:?tingling/numbness?Denies.?myalgias?Denies.?Joint Swelling?Denies.?extremeties?normal.?Arthritis?denies.?Back problems?denies.?Carpal tunnel?denies.?Joint stiffness?denies.?Muscle aches?denies.?Endocrine:?Bowel Changes?Denies.?Breast Discharge?Denies.?poor libido?Denies.?Cold intolerance?denies.?Excessive sweating?denies.?Excessive thirst?denies.?Frequent urination?denies.?Thyroid problems?denies.?Skin:?Bruising?Denies.?Eczema?denies.?Hair changes?denies.?Rash?denies.?Skin lesion(s)?denies.?Psychiatric:?Anxiety?denies.?Depressed mood?denies.?Difficulty sleeping?denies.?Nervous breakdown?denies.?Substance abuse?denies.?Urology:?abnormal menstrual bleeding?denies.?blood in urine?denies.?burning on urination?denies.?difficulty urinating?denies.?discharge?denies.?dysuria?denies.? * Medical History:? * Surgical History:? * Hospitalization/Major Diagno stic Procedure:? * Medications:?TakingamLODIPin e Besylate 10 MG Tablet 1 tablet Orally Once a day hydroCHLOROthiazide 12.5 MG Tablet 1 tablet in the morning Orally Once a day Lansoprazole 30 MG Tablet Delayed Release Disintegrating 1 tablet Orally Once a day Famotidine 40 MG Tablet 1 tablet at bedtime Orally Once a day Taking amLODIPine Besylate 10 MG Tablet 1 tablet Orally Once a day Taking hydroCHLOROthiazide 12.5 MG Tablet 1 tablet in the morning Orally Once a day Taking Lansoprazole 30 MG Tablet Delayed Release Disintegrating 1 tablet Orally Once a day Taking Famotidine 40 MG Tablet 1 tablet at bedtime Orally Once a day Not-TakingAlbuterol Sulfate HFA 108 (90 Base) MCG/ACT Aerosol Solution 1 puff as needed Inhalation every 6 hrs predniSONE 20 MG Tablet 1 tablet Orally Once a day Fluticasone Propionate 50 MCG/ACT Suspension 1 spray in each nostril Nasally 2 TIMES DAY Albuterol Sulfate (2.5 MG/3ML) 0.083% Nebulization Solution 3 mL as needed Inhalation every 6 hrs Not-Taking Albuterol Sulfate HFA 108 (90 Base) MCG/ACT Aerosol Solution 1 puff as needed Inhalation every 6 hrs Not-Taking predniSONE 20 MG Tablet 1 tablet Orally Once a day Not-Taking Fluticasone Propionate 50 MCG/ACT Suspension 1 spray in each nostril Nasally 2 TIMES DAY Not-Taking Albuterol Sulfate (2.5 MG/3ML) 0.083% Nebulization Solution 3 mL as needed Inhalation every 6 hrs DiscontinuedLisinopril-hydroCHLOROthiazide 20-25 MG Tablet TAKE 1 TABLET BY MOUTH EVERY DAY Pantoprazole Sodium 40 MG Tablet Delayed Release 1 tablet Orally Once a day Discontinued Lisinopril-hydroCHLOROthiazide 20-25 MG Tablet TAKE 1 TABLET BY MOUTH EVERY DAY Discontinued Pantoprazole Sodium 40 MG Tablet Delayed Release 1 tablet Orally Once a day UnknownLotrimin AF 1 % Cream 1 application Externally Twice a day Clotrimazole 1 % Cream 1 application Externally Twice a day Medication List reviewed and reconciled with the patientUnknown Lotrimin AF 1 % Cream 1 application Externally Twice a day Unknown Clotrimazole 1 % Cream 1 application Externally Twice a day Medication List reviewed and reconciled with the patient * Allergies:?Penicillamine: Mandeep avery[Allergies Verified] Objective: * Vitals:?Temp:97.8F, HR:77/mi n, BP:124/78mm Hg, Wt:151lbs, BMI:24.56Index, Ht: 65.75 in. * ???Past Orders: ???Lab:[id number] (Order Date - 09/10/2023) (Collection Date & Time - 09/10/2023 07:32 AM) ? Value Reference Range ?Glucose 110 H 70-99 - mg/d L ???Lab:Hgb A1c with eAG Barbi osei-[id number] (Order Date - 09/10/2023) (Collection Date & Time - 09/10/2023 07:32 AM) ? Value Reference Range ?Hemoglobin A1c 6.1 H 4.8-5 .6 - % ?Estim. Avg Glu (eAG) 128 - mg/dL ???Lab:COMPREHENSIVE METABOL IC PANEL (Order Date - 07/12/2023) (Collection Date & Time - 07/12/2023 08:48 AM) ? Value Reference Range ?ALBUMIN 4.2 (3.4-4.8) - GM/DL ?ALK PHOS 63 (40-129) - U/L ?BILIRUBIN,TOTAL 0.4 (0-1 .2) - MG/DL ?CALCIUM 9.0 (8.6-10.5) - MG/DL ?BICARBONATE 26 (22-29) - MMOL/L ?CHLORIDE 104 (98-107) - MMOL/L ?EST GFR NON 79 - ML/MIN/1.73 M2 ?CREATININE 1.1 (0.7-1.2) - MG/DL ?ANION GAP 9 (4-17) - ?GLUCOSE 111 H (70-99) - MG /DL ?AST 16 (0-40) - U/L ?ALT 24 (0-41) - U/L ?POTASSIUM 4.5 (3.6-5.2) - MMOL/L ?SODIUM 139 (133-145) - M MOL/L ?TOTAL PROTEIN 7.5 (6.2-8 .2) - GM/DL ?BUN 16 (6-20) - MG/DL ?AG RATIO 1.3 - ???Lab:HEMOGLOBIN A1C WITH E ST GLUCOSE (Order Date - 07/12/2023) (Collection Date & Time - 07/12/2023 08:48 AM) ? Value Reference Range ?HEMOGLOBIN A1C 6.0 H (4.0- 5.6) - % ?ESTIMATE AVERAGE GLUCOSE 126 - MG/DL ???Lab:LIPID PANEL (Order Da te - 07/12/2023) (Collection Date & Time - 07/12/2023 08:48 AM) ? Value Reference Range ?LDL CHOLESTEROL, CALCULATED 30 (0-130) - MG/DL ?CHOLESTEROL, TOTAL 76 ( <200) - MG/DL ?HDL CHOL 35 L (>39) - MG/ DL ?NON HDL CHOLESTEROL (CALC) 41 (<160) - MG/DL ?TRIGLYCERIDE 55 (<150) - MG/DL ???Lab:MICROALBUMIN, URINE ( Order Date - 07/12/2023) (Collection Date & Time - 07/12/2023 08:48 AM) ? Value Reference Range ?MICRO-ALBUMIN 85.0 H (<20) - MG/L ?MALB/CREAT RATIO 29.7 H (0- 20) - MG/GM ?URINE CREAT FOR MICRO ALBUMIN 285.7 - MG/DL * Examination: ???General Examination: ?Psychiatry?Normal.?GENERAL APPEARANCE:?Well developed, well nourished, in no acute distress.?MUSCULOSKELETAL:?Normal.?HEAD:?Normocephalic, atraumatic.?EYES:?Pupils equal, round, reactive to light and accommodation, sclera non-icteric.?EARS:?Normal.?ORAL CAVITY:?Normal.?THROAT:?Clear.?OROPHARYNX?Normal.?NECK/THYROID:?Neck supple, full range of motion, no cervical lymphadenopathy.?SKIN:?Warm and dry, no suspicious lesions.?HEART:?Normal.?LUNGS:?Normal.?BREASTS:?__.?ABDOMEN:?Soft, nontender, nondistended, bowel sounds present, normal.?EXTREMITIES:?Normal.?PERIPHERAL PULSES:?Normal.?NEUROLOGIC:?Nonfocal,? 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 .? Assessment: * Assessment: 1.?Essential (primary) hyper tension - I10 (Primary)?2.?Gastritis, unspecified, without bleeding - K29.70?3.?Impaired fasting blood sugar - R73.01? Mr Farrell is 58 years old gen tleman with hypertension is here for follow-up. Plan as follows: HTN: - BP is well controlled on current regimen. Lisinopril was previously discontinued due to vocal laryngeal edema. Gastritis/possible gastroparesis/Hiatal Hernia/moderate reflux: - Patient currently is asymptomatic. [...] Agree with the above mentioned assessment and plan. Plan: * Treatment: 2.?Impaired fasting blood georges gar?LAB: Hgb A1c with eAG Estimation-[id number] 3.?Others? Refill amLODIPine Besylate Tablet, 10 MG, 1 tablet, Orally, Once a day, 30 days, 30 Tablet, Refills 12;?Refill hydroCHLOROthiazide Tablet, 12.5 MG, 1 tablet in the morning, Orally, Once a day, 30 days, 30, Refills 5.?? * Procedure Codes:?3079F DIAST BP 80-89 MM [id number] SYST BP GE 130 - 139MM HG * Follow Up:?6 Months-f/up * Images: * Sign off status: Completed true * Provider:?Renan Vidal Date:?01/14/20 24 Generated for Mathew harden/Bay/Azulransmitting on:?06/11/2024 02:15 AM EST History and Physical Notes * HPI (History of Present Illness) Category Sub-Category Detail Notes Category Not es Internal Medicine Lucas is a 58-year-old gentleman with hypertension here for follow up. He is physically active and walks 2-3 miles a day. He gained 7 lbs since last visit. He does not appear anxious or depressed. He sleeps well, appetite is good. No GI or symptoms. He denies any other active issues or concerns. Examination Category Sub-Category Detail Notes Category Not es General Examination GENERAL APPEARANCE: Well dev eloped, well nourished, in no acute distress HEAD: Normocephalic, atrau matic EYES: Pupils equal, round, reactive to light and accommodation, sclera non-icteric EARS: Normal THROAT: Clear NECK/THYROID: Neck supple, full ra nge of motion, no cervical lymphadenopathy HEART: Normal LUNGS: Normal ABDOMEN: Soft, nontender, non distended, bowel sounds present, normal NEUROLOGIC: Nonfocal, appropriat e motor strength normal upper and lower extremities, sensory exam intact SKIN: Warm and dry, no kristen picious lesions EXTREMITIES: Normal PERIPHERAL PULSES: Normal BREASTS: __ MUSCULOSKELETAL: Normal MALE GENITOURINARY: __ FEMALE GENITOURINARY: __ ORAL CAVITY: Normal PODIATRIC: Normal Psychiatry Normal OROPHARYNX Normal SINUSES 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
--- OUTSIDE RECORDS SUMMARY | 2024-06-11 02:16 | XMS_ITS ---
Author Organization [facility] Address [address] [address] Care Team Providers Care Cpr Ambulance Driver Name Role Phone GURU MANNIE Primary Care Provider [phone] Reason For Referral Reason Evaluation and manag ement Diagnosis 1 Gastro-esophageal re flux disease without esophagitis (K21.9) Diagnosis 2 Gastritis, unspecifi ed, without bleeding (K29.70) Referral Organization [facility] Referring Provider First Name MANNIE Referring Provider Last Name GURU Referring Provider Speciality Internal M edicine Referred Provider undefined Referred Provider Specialty Gastroentero logy General Notes [facility] Department will call the patient for scheduling.Spencer Latraya 12/20/2023 03:36:52 PM > Referral Priority Routine REASON FOR VISIT Results/referral Medications Medication SIG (Take, Route, Fr equency, Duration) Notes Start Date End Date Status Protonix 40 MG 1 tablet Orally Once a day for 30 days 12/20/2023 Active Encounters Encounter Location Date Provider Diagnosis [facility] [address] [facility] [address] [place] [address] 12/20/2023 MANNIE GARVEY Plan Of Treatment Medication Medication Name Sig Start Date Stop Date Notes Protonix 40 MG 1 tablet Orally Once a day for 30 days 12/01 Referrals Referral Date Details 12/20/2023 12/20/2023, Evaluati on and management Next Appt Details Provider Name:MANNIE GARVEY , 07/17/2024 02:30:00 PM, [address] [facility] [address], [place], [address], Progress Notes * Orlin FARRELLanDOB:1965 (58 yo M)Acc No.[id number]:12/20/2023 Patient:?Lucas FARRELL :1965???Age:58 Y???Sex:Male Address:[address] [place] [address] * Refills? Start Protonix Tablet Delayed Release, 40 MG, Orally, 30, 1 tablet, Once a day, 30 days, Refills=5 Subjective: * Chief Complaints: * ???Results/referral * Medical History:? * Surgical History:? * Hospitalization/Major Diagno stic Procedure:? * Medications:? Objective: Assessment: Plan: * Treatment: * Procedure Codes:? * true * Date:? Generated for Mathew harden/Bay/Angelinesmitting on:?06/11/2024 02:16 AM EST Consultation Request Notes Referral Date Referring Provider Referred Provider Not laura 12/20/2023 MANNIE GARVEY , undefined Evaluation and management
--- OUTSIDE RECORDS SUMMARY | 2024-06-11 02:16 | XMS_ITS ---
Author Organization [facility] Address [address] [address] Care Team Providers Care Video Network Engineer Name Role Phone KATHAdeline MANNIE Primary Care Provider REASON FOR VISIT Protonix not covered Medications Medication SIG (Take, Route, Fr equency, Duration) Notes Start Date End Date Status Lansoprazole 30 MG 1 tablet Orally Once a day for 30 days 12/24/2023 Active Famotidine 40 MG 1 tablet at bedtime Orally Once a day for 30 days 12/24/2023 Active Encounters Encounter Location Date Provider Diagnosis [facility] [address] [address] 12/24/2023 MANNIE GARVEY Plan Of Treatment Medication Medication Name Sig Start Date Stop Date Notes Lansoprazole 30 MG 1 tablet Orally Once a day for 30 days 12/24/2023 Famotidine 40 MG 1 tablet at bedtime Orally Once a day for 30 days 12/24/2023 Next Appt Details Provider Name:MANNIE GARVEY , 07/17/2024 02:30:00 PM, [address] [place] [address], [address], Progress Notes * Daysi FARRELLOB:1965 (58 yo M)Acc No.[id number]:12/24/2023 Patient:Lucas VELARDE :1965???Age:58 Y???Sex:Male Address:[address] [place] [address] * Refills? Start Lansoprazole Tablet Delayed Release Disintegrating, 30 MG, Orally, 30, 1 tablet, Once a day, 30 days, Refills=11 Start Famotidine Tablet, 40 MG, Orally, 30, 1 tablet at bedtime, Once a day, 30 days, Refills=5 * true * Date:? Generated for Mathew harden/Bay/Gigi on:?06/11/2024 02:16 AM EST
[2024-07-29 12:35] VITALS: BMI 24.0
--- NOTE | 2024-07-30 08:58 | P.CONAN_ITS ---
Documented by User: Ellie Elliott NP 07/30/24 08:58 HPI - Anesthesia Eval Consult details Narrative: 59yo M for Upper Endoscopy and Colonoscopy [facility] Active Problems Active Problems: All Active Problems Encounter for colorectal cancer screening (Acute) GERD (gastroesophageal reflux disease) (Acute) Esophagitis (Acute) COVID-19 (Acute) Chronic cough (Acute) Laryngospasm (Acute) Sinusitis (Acute) Allergies (Acute) Past Medical History Medical History GERD (gastroesophageal reflux disease) Hiatal hernia Chronic cough Laryngospasm Sinusitis Allergies Hypertension Surgical History Surgical History No pertinent past surgical history Social History Social History Do you presently have visiting nurse or other home services: No Alcohol intake: never Patient Tobacco Use Status: Never used Tobacco Have you been hit, kicked, punched, or otherwise hurt by someone within the past year? If so, by whom?: No Are you DNR?: No Advance Directives: No Advance Directives Information Provided: Yes Recently lost weight without trying: No Nutrition Risks: No Nutritional Risk Meds Allergies Allergy/AdvReac Type Severity Reaction Status Date / Time lisinopril Allergy Severe Angioedema Verified 07/31/24 06:49 Penicillins AdvReac Intermediate Palpitation Verified 07/31/24 06:49 s Home Medications ?Medication ?Instructions ?Recorded ?Confirmed ?Last Taken ?Type nebulizers 09/24/23 07/31/24 Unknown History amlodipine 10 mg tablet 10 mg PO DAILY 03/24/24 07/31/24 Unknown History hydrochlorothiazide 12.5 mg tablet 12.5 mg PO DAILY 03/24/24 07/31/24 Unknown History nebulizers 04/24/24 07/31/24 Unknown History Exam Height,Weight and Vital Signs: Height 5 ft 6 in Weight 67.585 kg Assessment and Plan Assessment Anesthesia Assessment: Chart Reviewed Documented by User: Bonnie Abreu MD 07/31/24 07:[facility] Past Medical History Medical History GERD (gastroesophageal reflux disease) Hiatal hernia Chronic cough Laryngospasm Sinusitis Allergies Hypertension Surgical History Surgical History No pertinent past surgical history History of Problems with Anesthesia: No Social History Social History Do you presently have visiting nurse or other home services: No Alcohol intake: never Patient Tobacco Use Status: Never used Tobacco Have you been hit, kicked, punched, or otherwise hurt by someone within the past year? If so, by whom?: No Are you DNR?: No Advance Directives: No Advance Directives Information Provided: Yes Recently lost weight without trying: No Nutrition Risks: No Nutritional Risk Meds Allergies Allergy/AdvReac Type Severity Reaction Status Date / Time lisinopril Allergy Severe Angioedema Verified 07/31/24 06:49 Penicillins AdvReac Intermediate Palpitation Verified 07/31/24 06:49 s Home Medications ?Medication ?Instructions ?Recorded ?Confirmed ?Last Taken ?Type nebulizers 09/24/23 07/31/24 Unknown History amlodipine 10 mg tablet 10 mg PO DAILY 03/24/24 07/31/24 Unknown History hydrochlorothiazide 12.5 mg tablet 12.5 mg PO DAILY 03/24/24 07/31/24 Unknown History nebulizers 04/24/24 07/31/24 Unknown History Exam Airway Mallampati Class: II TM Dist: >3cm Neck ROM: Full Loose/Missing/Broken Teeth: No Heart: RRR Lungs: CTA Assessment and Plan Assessment Anesthesia Assessment: Anesthesia Plan Discussed Final Anesthetic Review History of Problems with Anesthesia: No NPO: Yes ASA Class: II Final Preanesthetic Review: Meds/Allgs Chart Reviewed, Consent Obtained/Reviewed and Anes Risks/Benef Reviewed Patient Risk: Low Procedure Risk: Intermediate Anesthetic Plan Anesthetic Plan: MAC: Disposition: Standard PACU
--- OUTSIDE RECORDS SUMMARY | 2024-07-31 06:10 | XMS_ITS ---
Author Organization [facility] Address [address] [address] Care Team Providers Care Foreign Food Cook Specialty Name Role Phone MANNIE GARVEY Primary Care Provider REASON FOR VISIT 6 month f/u Encounters Encounter Location Date Provider Diagnosis [facility] [address] [facility] [address] [place] [address] 07/17/2024 MANNIE GARVEY Plan Of Treatment Next Appt Details Provider Name:MANNIE GARVEY , 01/22/2025 03:30:00 PM, [address] [facility] [address], [place], [address], Progress Notes * Orlin FARRELLJamesOB:1965 (59 yo M)Acc No.[id number]:07/17/2024 Progress Notes Patient:?Lucas FARRELL Provider:?MANNIE GARVEY MD :1965???Age:59 Y???Sex:Male Dallin e:07/17/2024 Address:[address] [place], [place] [phone] Subjective: * Chief Complaints: * ???1. 6 month f/u. * Medical History:? Objective: * Vitals:? Assessment: Plan: * Treatment: * Procedure Codes:?NOSHO NO SH OW FEE * * Electronic signature of EMELY GARVEY MD on 07/31/2024 at 06:10 AM EST Sign off status: Pending * Provider:?MANNIE GARVEY MD Date:?07/17 Generated for Mathew harden/Bay/Katrinitting on:?07/31/2024 06:10 AM EST
--- OUTSIDE RECORDS SUMMARY | 2024-07-31 06:10 | XMS_ITS ---
Author Organization [facility] Address [address] [place] [address] [address] [place] [address] Care Team Providers Care Humanities And Languages Professor Name Role Phone MANNIE GARVEY Primary Care Provider Allergies Allergen (clinical drug ingredient) Drug/Non Drug Allergy documented on EMR Reaction Allergy Type Onset Date Status penicillamine Penicillamine Unknown Drug Allergy Active REASON FOR VISIT CPE Medications Medication SIG (Take, Route, Frequency, Duration) Notes Start Date End Date Status Albuterol Sulfate (2.5 MG/3ML) 0.083% 3 mL as needed Inhalation every 6 hrs for 30 days 09/19/2023 Not-Taking predniSONE 20 MG 1 tablet Orally Once a day for 7 days 09/14/2023 Not-Taking Fluticasone Propionate 50 MCG/ACT 1 spray in each nostril Nasally 2 TIMES DAY for 30 days 09/14/2023 Not-Taking Lotrimin AF 1 % 1 application Externally Twice a day for 28 day(s) 12/15/2021 Unknown Clotrimazole 1 % 1 application Externally Twice a day for 28 day(s) 12/15/2021 Unknown Famotidine 40 MG TAKE 1 TABLET BY MOUTH EVERY DAY AT BEDTIME FOR 30 DAYS for 90 Not-Taking Albuterol Sulfate HFA 108 (90 Base) MCG/ACT 1 puff as needed Inhalation every 6 hrs for 30 days 09/14/2023 Not-Taking amLODIPine Besylate 10 MG 1 tablet Orall y Once a day for 30 days Active hydroCHLOROthiazide 12.5 MG 1 tablet in the morning Orally Once a day for 30 days 10/04/2023 Active Lansoprazole 30 MG 1 tablet Orally Once a day for 30 days 12/24/2023 Not-Taking Social History Tobacco Use: Social History Observation Description Date Details (start date - stop date) Never Smoker NA - NA Tobacco Use/Smoking Question Answer Notes Are you a nonsmoker Alcohol Screen (Audit-C) Question Answer Notes Did you have a drink containing alcohol in the p ast year? No Points 0 Interpretation Negative Vital Signs Temperature 96.7 degrees Fahrenheit 07/24/19 25 Oximetry 98 % 07/24/2024 Heart Rate 95 /min 07/24/2024 Blood pressure systolic 130 mm Hg 07/24/19 25 Blood pressure diastolic 99 mm Hg 025 Weight 154.9 lbs 07/24/2024 BMI 25.19 kg/m2 07/24/2024 Height 65.75 in 07/24/2024 Encounters Encounter Location Date Provider Diagnosis [facility] [address] [address] 07/24/2024 MANNIE GARVEY Essential (primary) hypertension I10 ; Encounter for general adult medical examination without abnormal findings Z00.00 ; Gastritis, unspecified, without bleeding K29.70 and Impaired fasting blood sugar R73.01 Assessments Encounter Date Diagnosis (ICD Code) Assessment Notes Treatment Notes Treatment Clinical Notes Section Notes 07/24/2024 Essential (primary) hypertension (ICD-10 - I10) Mr Farrell is 58 years old gentleman with hypertension is here for general physical Plan as follows: HTN: - BP is is running high in the office. He was not taking amlodipine and hydrochlorothiazide for the last 7- 8 days because he was having upper respiratory tract symptoms and he was on antibiotics. Moreover he was also on country for 10 days. Advised to start medications again and check blood pressure at home and goal blood pressure is less than 131/80. EKG is normal sinus rhythm at 83 bpm with no acute ST T wave changes: No bundle branch blocks, normal intervals. Gastritis/possible gastroparesis/Hiatal Hernia/moderate reflux: - Patient currently is asymptomatic. Denies dysphagia, odynophagia. he is going to have colonoscopy and upper endoscopy at [facility] on July 31, 2024 Impaired fasting glucose; A1C is elevated from 6.0 to 6.1. Dietary modifications is highly recommended. We will repeat A1c. screening blood work ordered. Advised to get pneumonia and shingles vaccine 07/24/2024 Encounter for general adult medical examination without abnormal findings (ICD-10 - Z00.00) Mr Farrell is 58 years old gentleman with hypertension is here for general physical Plan as follows: HTN: - BP is is running high in the office. He was not taking amlodipine and hydrochlorothiazide for the last 7- 8 days because he was having upper respiratory tract symptoms and he was on antibiotics. Moreover he was also on country for 10 days. Advised to start medications again and check blood pressure at home and goal blood pressure is less than 131/80. EKG is normal sinus rhythm at 83 bpm with no acute ST T wave changes: No bundle branch blocks, normal intervals. Gastritis/possible gastroparesis/Hiatal Hernia/moderate reflux: - Patient currently is asymptomatic. Denies dysphagia, odynophagia. he is going to have colonoscopy and upper endoscopy at [facility] on July 31, 2024 Impaired fasting glucose; A1C is elevated from 6.0 to 6.1. Dietary modifications is highly recommended. We will repeat A1c. screening blood work ordered. Advised to get pneumonia and shingles vaccine 07/24/2024 Gastritis, unspecified, without bleeding (ICD-10 - K29.70) Mr Farrell is 58 years old gentleman with hypertension is here for general physical Plan as follows: HTN: - BP is is running high in the office. He was not taking amlodipine and hydrochlorothiazide for the last 7- 8 days because he was having upper respiratory tract symptoms and he was on antibiotics. Moreover he was also on country for 10 days. Advised to start medications again and check blood pressure at home and goal blood pressure is less than 131/80. EKG is normal sinus rhythm at 83 bpm with no acute ST T wave changes: No bundle branch blocks, normal intervals. Gastritis/possible gastroparesis/Hiatal Hernia/moderate reflux: - Patient currently is asymptomatic. Denies dysphagia, odynophagia. he is going to have colonoscopy and upper endoscopy at [facility] on July 31, 2024 Impaired fasting glucose; A1C is elevated from 6.0 to 6.1. Dietary modifications is highly recommended. We will repeat A1c. screening blood work ordered. Advised to get pneumonia and shingles vaccine 07/24/2024 Impaired fasting blood sugar (ICD-10 - R73.01) Mr Farrell is 58 years old gentleman with hypertension is here for general physical Plan as follows: HTN: - BP is is running high in the office. He was not taking amlodipine and hydrochlorothiazide for the last 7- 8 days because he was having upper respiratory tract symptoms and he was on antibiotics. Moreover he was also on country for 10 days. Advised to start medications again and check blood pressure at home and goal blood pressure is less than 131/80. EKG is normal sinus rhythm at 83 bpm with no acute ST T wave changes: No bundle branch blocks, normal intervals. Gastritis/possible gastroparesis/Hiatal Hernia/moderate reflux: - Patient currently is asymptomatic. Denies dysphagia, odynophagia. he is going to have colonoscopy and upper endoscopy at [facility] on July 31, 2024 Impaired fasting glucose; A1C is elevated from 6.0 to 6.1. Dietary modifications is highly recommended. We will repeat A1c. screening blood work ordered. Advised to get pneumonia and shingles vaccine Plan Of Treatment Next Appt Details Follow Up: 6 Months, Reason: Provider Name:MANNIE GARVEY , 01/22/2025 03:30:00 PM, [address] [place] [address], [phone], Progress Notes * Rain FARRELLyulianaanDOB:1965 (59 yo M)Acc No.[id number]:07/24/2024 Progress Notes Patient:?Lucas FARRELL Provider:?MANNIE GARVEY MD :1965???Age:59 Y???Sex:Male Dallin e:07/24/2024 Address:[address] [place], [place] [phone] Subjective: * Chief Complaints: * ???CPE * HPI: ???Internal Medicine:?Lucas is a 58-year-old gentleman with hypertensionacid reflux is here for annual physical. He was not feeling well and he was on antibiotics and he was not taking his blood pressure pills.? He started his blood pressure medication today.? He was out of country recently for 10 days.? He?is physically active and walks 2-3 miles a day. no or GI issues.? No anxiety or depression.? No other complaints. * ROS:?General/Constitutional:?Overall health?Good.?Change in appetite?denies.?Chills?denies.?Fever?denies.?Night sweats?denies.?Sleep disturbance?denies.?Weight gain?denies.?Weight loss?denies.?Neurologic:?Difficulty speaking?denies.?Dizziness?denies.?Gait abnormality?denies.?Headache?denies.?Loss of strength?denies.?Memory loss?denies.?Seizures?denies.?Tingling/Numbness?denies .?Ophthalmologic:?Blurred vision?denies.?Discharge?denies.?Dry eye?denies.?Red eye?denies.?ENT:?Change in Voice?Denies.?Cold Symptoms?Denies.?Cough?Denies.?Dizziness?Denies.?Nasal Congestion?, [...] History:? * Hospitalization/Major Diagno stic Procedure:? * Family History:?Father: dece ased, stroke, diagnosed with Diabetes.?Mother: , stroke, diagnosed with Diabetes.?Siblings: , kidney failure, diagnosed with Diabetes.? * Social History:?Tobacco Use:?Tobacco Use/Smoking?Are you a?nonsmoker ???Drugs/Alcohol:?Drugs?Have you used drugs other than those for medical reasons in the past 12 months??No ?Alcohol Screen (Audit-C)?Did you have a drink containing alcohol in the past year??No ?Points?0 ?Interpretation?Negative ???Miscellaneous:?Exercise: Patient exercises, walking. ?Living with: spouse. ?Marital status: . 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 * Medications:?TakingamLODIPin e Besylate 10 MG Tablet 1 tablet Orally Once a day hydroCHLOROthiazide 12.5 MG Tablet 1 tablet in the morning Orally Once a day Taking amLODIPine Besylate 10 MG Tablet 1 tablet Orally Once a day Taking hydroCHLOROthiazide 12.5 MG Tablet 1 tablet in the morning Orally Once a day Not-TakingLansoprazole 30 MG Tablet Delayed Release Disintegrating 1 tablet Orally Once a day Famotidine 40 MG Tablet TAKE 1 TABLET BY MOUTH EVERY DAY AT BEDTIME FOR 30 DAYS Albuterol Sulfate HFA 108 (90 Base) MCG/ACT Aerosol Solution 1 puff as needed Inhalation every 6 hrs predniSONE 20 MG Tablet 1 tablet Orally Once a day Fluticasone Propionate 50 MCG/ACT Suspension 1 spray in each nostril Nasally 2 TIMES DAY Albuterol Sulfate (2.5 MG/3ML) 0.083% Nebulization Solution 3 mL as needed Inhalation every 6 hrs Not-Taking Lansoprazole 30 MG Tablet Delayed Release Disintegrating 1 tablet Orally Once a day Not-Taking Famotidine 40 MG Tablet TAKE 1 TABLET BY MOUTH EVERY DAY AT BEDTIME FOR 30 DAYS Not-Taking Albuterol Sulfate HFA 108 (90 Base) MCG/ACT Aerosol Solution 1 puff as needed Inhalation every 6 hrs Not-Taking predniSONE 20 MG Tablet 1 tablet Orally Once a day Not-Taking Fluticasone Propionate 50 MCG/ACT Suspension 1 spray in each nostril Nasally 2 TIMES DAY Not-Taking Albuterol Sulfate (2.5 MG/3ML) 0.083% Nebulization Solution 3 mL as needed Inhalation every 6 hrs UnknownLotrimin AF 1 % Cream 1 application [...] * Allergies:?Penicillamine: Mandeep avery[Allergies Verified] Objective: * Vitals:?Temp:96.7F, Oxygen s at %:98%, HR:95/min, BP: 120/72 mm Hg,130/99mm Hg, Wt:154.9lbs, BMI:25.19Index, Ht: 65.75 in. * ???Past Orders: ???Lab:[id number] (Order Date - 09/10/2023) (Collection Date & Time - 09/10/2023 07:32 AM) ? Value Reference Range ?Glucose 110 H 70-99 - mg/d L ???Lab:Hgb A1c with eAG Barbi mation-[id number] (Order Date - 09/10/2023) (Collection Date & [...] A1C WITH E ST GLUCOSE (Order Date 07/12/2023) (Collection Date & Time - 07/12/2023 08:48 AM) ? Value Reference Range ?HEMOGLOBIN A1C 6.0 H (4.0- 5.6) - % ?ESTIMATE AVERAGE GLUCOSE 126 - MG/DL ???Lab:LIPID PANEL (Order Da te 07/12/2023) (Collection Date & Time - 07/12/2023 [...] CREAT FOR MICRO ALBUMIN 285.7 - MG/DL ???Lab:PSA, SCREEN (Order Da te - 07/12/2023) (Collection Date & Time - 07/12/2023 08:48 AM) ? Value Reference Range ?PSA 0.6 (0-4) - NG/ML * Examination: ???General Examination: ?Psychiatry?Normal.?GENERAL APPEARANCE:?Well developed, well nourished, in no acute distress.?MUSCULOSKELETAL:?Normal.?HEAD:?Normocephalic, atraumatic.?EYES:?Pupils equal, round, reactive to light and accommodation, sclera non-icteric.?EARS:?auditory canal clear tympanic membrane intact, clear light reflex present .?ORAL CAVITY:?Normal.?THROAT:?Clear.?OROPHARYNX?Normal.?NECK/THYROID:?Neck supple, full range of motion, no cervical lymphadenopathy.?SKIN:?Warm and dry, no suspicious lesions.?HEART:?S1, S2 normal regular rate and rhythm no murmurs, rubs, gallops .?LUNGS:?clear anteriorly and posteriorly good air movement no wheezes, rales, rhonchi .?BREASTS:?__.?ABDOMEN:?Soft, nontender, nondistended, bowel sounds present, normal.?EXTREMITIES:?Normal.?PERIPHERAL PULSES:?Normal.?NEUROLOGIC:?Nonfocal,? appropriate?motor strength normal upper and lower extremities, sensory exam intact.?FEMALE GENITOURINARY:?__.?MALE GENITOURINARY:?declined.?PODIATRIC:?Normal.?Oil Refiner? .? Assessment: * Assessment: 1.?Encounter for general abel lt medical examination without abnormal findings - Z00.00 (Primary)???2.?Essential (primary) hypertension - I10???3.?Gastritis, unspecified, without bleeding - K29.70???4.?Impaired fasting blood sugar - R73.01??? Mr Farrell is 58 years old gen tleman with hypertension is here for general physical Plan as follows: HTN: - BP is is running high in the office.? He was not taking amlodipine and hydrochlorothiazide for the last 7- 8 days because he was having upper respiratory tract symptoms and he was on antibiotics.? Moreover he was also on country for 10 days.? Advised to start medications again and check blood pressure at home and goal blood pressure is less than 131/80. EKG is normal sinus rhythm at 83 bpm with no acute ST T wave changes: No bundle branch blocks, normal intervals. Gastritis/possible gastroparesis/Hiatal Hernia/moderate reflux: - Patient currently is asymptomatic. Denies dysphagia, odynophagia. he is going to have colonoscopy and upper endoscopy at [facility] on July 31, 2024 Impaired fasting glucose; A1C is elevated from 6.0 to 6.1. Dietary modifications is highly recommended. We will repeat A1c. screening blood work ordered. Advised to get pneumonia and shingles vaccine Plan: * Treatment: 2.?Essential (primary) hyper tension?LAB: Comp. Metabolic Panel [id number] (Ordered for 07/24/2024) ?LAB: Lipid Panel-[id number] (Ordered for 07/24/2024) ?LAB: Albumin/Creatinine Ratio,Urine-[id number] (Ordered for 07/24/2024) 3.?Impaired fasting blood georges gar?LAB: Hemoglobin [id number] (Ordered for 07/24/2024) * Procedure Codes:?3080F DIAST BP = 90 MM [id number] SYST BP GE 130 - 139MM [id number] ELECTROCARDIOGRAM, [id number] BRIEF EMOTIONAL/BEHAV ASSMT * Preventive Medicine:?COVID (3) 2020 FLU 2023 Shingrix- Pneumonia- Tdap- BMD COLOGUARD/EGD- 07/31/24 Dr Troncoso EYE EXAM. 2023. * Follow Up:?6 Months * * Sign off status: Completed true * Provider:?MANNIE GARVEY MD Date:?07/24 Generated for Mathew harden/Bay/Katrinitting on:?07/31/2024 06:10 AM EST History and Physical Notes * HPI (History of Present Illness) Category Sub-Category Detail Notes Category Not es Internal Medicine Lucas is a 58-year-old gentleman with hypertensionacid reflux is here for annual physical. He was not feeling well and he was on antibiotics and he was not taking his blood pressure pills. He started his blood pressure medication today. [place] was [place]. He is physically active and walks 2-3 miles a day. no or GI issues. No anxiety or depression. No other complaints Examination Category Sub-Category Detail Notes Category Not es General Examination GENERAL APPEARANCE: Well dev eloped, well nourished, in no acute distress HEAD: Normocephalic, atrau matic EYES: Pupils equal, round, reactive to light and accommodation, sclera non-icteric EARS: auditory canal clear tympanic membrane intact, clear light reflex present THROAT: Clear NECK/THYROID: Neck supple, full ra nge of motion, no cervical lymphadenopathy HEART: S1, S2 normal regula r rate and rhythm no murmurs, rubs, gallops LUNGS: clear anteriorly and posteriorly good air movement no wheezes, rales, rhonchi ABDOMEN: Soft, nontender, non distended, bowel sounds present, normal NEUROLOGIC: Nonfocal, appropriat e motor strength normal upper and lower extremities, sensory exam intact SKIN: Warm and dry, no kristen picious lesions EXTREMITIES: Normal PERIPHERAL PULSES: Normal BREASTS: __ MUSCULOSKELETAL: Normal MALE GENITOURINARY: declined FEMALE GENITOURINARY: __ ORAL CAVITY: Normal PODIATRIC: Normal Psychiatry Normal OROPHARYNX Normal SINUSES Oil Refiner
--- OUTSIDE RECORDS SUMMARY | 2024-07-31 06:11 | XMS_ITS ---
Author Organization [facility] Address [address] [address] Care Team Providers Care Environmental Studies Program Director Name Role Phone MANNIE GARVEY Primary Care Provider [phone] REASON FOR VISIT same day reschedule Encounters Encounter Location Date Provider Diagnosis [facility] [address] [facility] [address] [place] [address] 07/17/2024 MANNIE GARVEY Plan Of Treatment Next Appt Details Provider Name:MANNIE GARVEY , 01/22/2025 03:30:00 PM, [address] [facility] [address], [place], [address], Progress Notes * Daysi FARRELLOB:1965 (59 yo M)Acc No.[id number]:07/17/2024 Patient:?Lucas FARRELL :1965???Age:59 Y???Sex:Male Address:[address] [place] [address] [place] [address] * true * Date:? Generated for Sandhyai dereck/Bay/eTransmitting on:?07/31/2024 06:10 AM EST
--- OUTSIDE RECORDS SUMMARY | 2024-07-31 06:11 | XMS_ITS | Patient Health Record ---
Author Organization [facility] Address [address] [facility] [address] [place] [address] Care Team Providers Care Supervisor [employer] Name Role Phone MANNIE GARVEY Primary Care Provider [phone] Renan Vidal Unavailable [phone] Allergies Allergen (clinical drug ingredient) Drug/Non Drug Allergy documented on EMR Reaction Allergy Type Onset Date Status penicillamine Penicillamine Unknown Drug Allergy Active Results Component Value Reference Range Notes Glucose-[id number] Reviewed date:09/11/2023 03:00:44 PM Interpretation: Performing Lab:[facility], [employer] [facility], Phone - [phone], Director - MDJodry Notes/Report: Glucose 110 70-99 mg/dL Hgb A1c with eAG Estimation- [id number] Reviewed date:09/19/2023 09:21:16 AM Interpretation: Performing Lab:[facility], [employer] [facility], [place], Phone - [phone], Director - MDJodry Notes/Report: Hemoglobin A1c 6.1 4.8-5.6 % . Prediabetes: 5.7 - 6.4 Diabetes: >6.4 Glycemic control for adults with diabetes: <7.0 Estim. Avg Glu (eAG) 128 Comp. Metabolic Panel (14)-3 [id number] Reviewed date:07/28/2024 04:58:56 PM Interpretation: Performing Lab:[facility], [address] [facility], [place], Phone - [phone], Director - MDJodry Notes/Report: Glucose 99 70-99 mg/dL BUN 14 6-24 mg/dL Creatinine 1.06 0.76-1.27 mg/dL eGFR 81 >59 mL/min/1.73 BUN/Creatinine Ratio 13 9-20 Sodium 141 134-144 mmol/L Potassium 4.2 3.5-5.2 mmol/L Chloride 104 96-106 mmol/L Carbon Dioxide, Total 23 20-29 mmol/L Calcium 9.1 8.7-10.2 mg/dL Protein, Total 7.6 6.0-8.5 g/dL Albumin 4.1 3.8-4.9 g/dL Globulin, Total 3.5 1.5-4.5 g/dL Bilirubin, Total 0.3 0.0-1.2 mg/dL Alkaline Phosphatase 77 44-121 IU/L AST (SGOT) 23 0-40 IU/L ALT (SGPT) 25 0-44 IU/L Lipid Panel-[id number] Reviewed date:07/28/2024 04:58:52 PM Interpretation: Performing Lab:[facility], [address] [place] [address], Phone - [phone], Director - MDJodry Notes/Report: Cholesterol, Total 68 100-199 mg/dL Triglycerides 41 0-149 mg/dL HDL Cholesterol 32 >39 mg/dL VLDL Cholesterol Jacob 12 5-40 mg/dL LDL Chol Calc ([facility]) 24 0-99 mg/dL Albumin/Creatinine Ratio,Uri ne-[id number] Reviewed date:07/28/2024 04:54:29 PM Interpretation: Performing Lab:[facility], [address] [place] [address], Phone - [phone], Director - MDJodry Notes/Report: Creatinine, Urine 328.2 Not Estab. mg/dL Albumin, Urine 284.1 Not Estab. ug/mL Alb/Creat Ratio 87 0-29 mg/g creat Normal: 0 - 29 Moderately increased: 30 - 300 Severely increased: >300 Hemoglobin C7j-[id number] Reviewed date:07/28/2024 04:54:25 PM Interpretation: Performing Lab:[facility], [address] [place] [address], Phone - [phone], Director - MDJodry Notes/Report: Hemoglobin A1c 6.2 4.8-5.6 % . Prediabetes: 5.7 - 6.4 Diabetes: >6.4 Glycemic control for adults with diabetes: <7.0 PSA (Serial Monitor)-[id number] Reviewed date:07/28/2024 04:54:21 PM Interpretation: Performing Lab:[facility], [address], [place], Phone - [phone], Director - Erlin Notes/Report: Prostate Specific Ag 0.7 0.0-4.0 ng/mL Satnam ECLIA methodology. . According to the [employer], Serum PSA should decrease and remain at undetectable levels after radical prostatectomy. The AUA defines biochemical recurrence as an initial PSA value 0.2 ng/mL or greater followed by a subsequent confirmatory PSA value 0.2 ng/mL or greater. Values obtained with different assay methods or kits cannot be used interchangeably. Results cannot be interpreted as absolute evidence of the presence or absence of malignant disease. Reason For Referral Reason Evaluation and manag ement Diagnosis 1 Gastro-esophageal re flux disease without esophagitis (K21.9) Diagnosis 2 Gastritis, unspecifi ed, without bleeding (K29.70) Referral Organization [facility] Referring Provider First Name MANNIE Referring [...] unspecifi ed, without bleeding (K29.70) Referral Organization [facility] Referring Provider First Name Renan Referring Provider Last Name Young Referred Provider Specialty Gastroentero logy General Notes Referral faxed to [facility] in [place] - Dept will call patient for scheduling.Spencer Latraya 01/14/2024 03:46:09 PM > Referral Priority Urgent [...] 30 days 09/14/2023 Not-Taking Famotidine 40 MG TAKE 1 TABLET BY [...] a day for 30 days 12/24/2023 Not-Taking Lotrimin AF 1 % 1 application Externally Twice a day for 28 day(s) 12/15/2021 Unknown Clotrimazole 1 % 1 application Externally Twice a day for 28 day(s) 12/15/2021 Unknown Immunizations Vaccine Route Administration Date Status Comme [...] Notes Problem Gastro-esophageal reflux disease without esophagitis (616674561) Gastro-esophage al reflux disease without esophagitis (K21.9) Active confirmed Problem Gastroduodenitis (683817306) Gastritis, unspecified, without bleeding (K29.70) Active confirmed Problem Proteinuria (22712116) Proteinuria, unspecified (R80.9) Active confirmed Problem Adult health examination (039031422) Encounter for general adult medical examination without abnormal findings (Z00.00) Active confirmed Problem Essential hypertension (70111077) Essential (primary) hypertension (I10) Active confirmed Problem History of disease caused by Severe acute respiratory syndrome coronavirus 2 (situation) (842045799482417236 ) Personal history of COVID-19 (Z86.16) Active confirmed Vital Signs Heart Rate 95 /min 07/24/2024 Temperature 96.7 degrees Fahrenheit 07/24/2024 Blood pressure diastolic 99 mm Hg 07/24/2024 Oximetry 98 % 07/24/2024 Height 65.75 in 07/24/2024 Blood pressure systolic 130 mm Hg 07/24/2024 Weight 154.9 lbs 07/24/2024 BMI 25.19 kg/m2 07/24/2024 Encounters Encounter Location Date Provider Diagnosis [facility] [address] [place] [address] 09/14/2023 CHAND GUL Essential (primary) hypertension I10 and Acute upper respiratory infection, unspecified J06.9 [facility] [address] [place] [address] 01/14/2024 Ghadeer Mazloum Essential (primary) hypertension I10 ; Gastritis, unspecified, without bleeding K29.70 and Impaired fasting blood sugar R73.01 [facility] [address] [place] [address] 07/24/2024 MANNIE STOCKTONL Essential (primary) hypertension I10 ; Encounter for general adult medical examination without abnormal findings Z00.00 ; Gastritis, unspecified, without bleeding K29.70 and Impaired fasting blood sugar R73.01 [facility] [address] [place] [address] 09/04/2023 MANNIE GARVEY Impaired fasting glucose R73.[address] [place] [address] 09/19/[address] [place] [address] 09/19/[address] [place] [address] 10/04/[address] [facility] [address] [place] [address] 10/17/2023 [facility] [address] [place] [address] 12/20/[address] [place] [address] 12/24/2023 CHANDDINORAH GARVEY [facility] [address] [facility] [address] [place] [address] 07/17/2024 MANNIE GARVEY Assessments Encounter Date Diagnosis (ICD Code) Assessment Notes Treatment Notes Treatment Clinical Notes Section Notes 01/14/2024 Gastritis, unspecified, without bleeding (ICD-10 - [...] with the above mentioned assessment and plan 09/14/2023 Acute upper respiratory infection, unspecified (ICD-10 [...] day schedule and had appropriate hydration recommended 09/04/2023 Impaired fasting glucose (ICD-10 - R73.01) 07/24/2024 Encounter for general adult medical examination [...] to have colonoscopy and upper endoscopy at [facility] on July 31, 2024 Impaired fasting glucose; A1C is elevated from 6.0 to 6.1. Dietary modifications is highly recommended. We will repeat A1c. screening blood work ordered. Advised to get pneumonia and shingles vaccine 07/24/2024 Essential (primary) hypertension (ICD-10 - I10) [...] to have colonoscopy and upper endoscopy at [facility] on July 31, 2024 Impaired fasting [...] to have colonoscopy and upper endoscopy at [facility] on July 31, 2024 Impaired fasting glucose; A1C is elevated from 6.0 to 6.1. Dietary modifications is highly recommended. We will repeat A1c. screening blood work ordered. Advised to get pneumonia and shingles vaccine 01/14/2024 Impaired fasting blood sugar (ICD-10 - [...] with the above mentioned assessment and plan 07/24/2024 Impaired fasting blood sugar (ICD-10 - [...] to have colonoscopy and upper endoscopy at [facility] on July 31, 2024 Impaired fasting glucose; A1C is elevated from 6.0 to 6.1. Dietary modifications is highly recommended. We will repeat A1c. screening blood work ordered. Advised to get pneumonia and shingles vaccine Plan Of Treatment Pending Test Test Name Order Date Electrocardiogram (EKG) 02/20/2018 Esophagogastroduodenoscopy (EGD) 024 Ultrasound : Kidneys 04/16/2018 EBCT Coronary calcium score 07/12/2023 COMPREHENSIVE METABOLIC PANEL 09/30/2021 GLUCOSE 09/04/2023 HEMOGLOBIN A1C 12/09/2021 HEMOGLOBIN A1C WITH EST GLUCOSE 09/04/19 24 HEMOGLOBIN A1C WITH EST GLUCOSE 06/15/20 22 LIPID PANEL 09/30/2021 MICROALBUMIN, URINE 09/30/2021 Hgb A1c with eAG Estimation-[id number] 01/13 Next Appt Details Provider Name:MANNIE GARVEY , 01/22/2025 03:30:00 PM, [address] [place] [address], [phone], Insurance Providers Payer Name Payer Address Payer Phone Subscriber Number Group Number Insured Name Patient Relationship to Insured Coverage Start Date Coverage End Date [facility] [address] [place] [address] [id number] Lucas Farrell Self - patient is the insured 7 Medical (General) History Medical History History ICD Code Hypertension Impaired fasting glucose Proteinuria Personal history of COVID-19 Surgical History Surgery Date(Month/Year) Hospitalization History Reason Date(Month/Year)
--- NOTE | 2024-07-31 06:12 | MHC.SHP ---
Pre-Procedural Eval Section A - 24 Hr Update-Section A only Date of Service: 07/31/24 Section B - Complete if H&P > 30 days Chief Complaint: Gerd, gastritis, screening Present Medications: see Short Stay Collaborative assessment Medical History: No relevant PMH History of Previous Operations: No relevant previous surgery Allergies: Allergies Allergy/AdvReac Type Severity Reaction Status Date / Time lisinopril Allergy Severe Angioedema Verified 04/24/24 15:19 Penicillins AdvReac Intermediate Palpitation Verified 04/24/24 15:19 s Review of Systems Review of Systems Comment: 10 point ROS negative Exam Exam Comment: Gen appear: No acute distress HEENT: no icterus Chest: No overt resp distress Abd: soft, nontender, nondistended Psych: Stable affect, answering questions appropriately Neuro: A/Ox3 noted to move all extremities spontaneously Ext: no peripheral edema Plan Diagnosis/Plan: Unchanged I have reviewed the history and physical and performed a pertinent physical examination on my patient. No changes have occurred unless specified. Time Spent With Patient Time: Total time managing care of this patient today ____ minutes.
[2024-07-31 06:48] VITALS: BMI 24.0
[2024-07-31] MEDS: Lactated Ringers 1,000 ML 100 ML IVCONT (07:01)
[2024-07-31 07:02] VITALS: BP 132/68; PULSE 84; RESP 18; TEMP 36.6; O2SAT 99
--- NOTE | 2024-07-31 08:19 | P.OPN-COLO_ITS ---
Colonoscopy Operative Note Operative Note Date of Service: 07/31/24 Narrative: Procedure: Upper endoscopy and colonoscopy Indication: GERD, gastritis, screening Endoscopist: Vannesa Troncoso MD Anesthesia Provider: Karina Abreu MD Anesthesia type: MAC Instrument: [id number] and [id number]-[id number] EGD Procedure:?? The procedure, indications, preparation and potential complications were reviewed with the patient, who indicated understanding and gave written informed consent to proceed. The endoscope was introduced through the mouth, and advanced to the 2nd part of the duodenum. The mucosa was carefully examined on slow withdrawal of the endoscope. The patient tolerated the procedure well. There were no immediate complications.? EGD Findings:? * Esophagus:? Linear ulcerations noted at GE junction that were spontaneously oozing occupying less than 1/3rd of the circumference. The Z-line was at 35 cm displaced by hiatal hernia with the diaphragmatic pinch at 40 cm. * Stomach:? Normal gastric mucosa. Retroflexion was performed in the cardia that showed Hill grade III hiatal hernia. Random cold forceps biopsies were taken from the stomach. * Duodenum:? Normal duodenal mucosa. A small subepithelial lesion measuring 2 mm was noted in the duodenal sweep. Bite on bite cold forceps biopsies were performed. Cold forceps biopsies were also taken from the duodenal bulb and 2nd portion of the duodenum to rule out celiac sprue. Colonoscopy Procedure:? The patient was then turned for the colonoscopy. A digital rectal exam was performed which was abnormal for external hemorrhoids.? A distal attachment cap was affixed to the tip of the scope and the colonoscope was then inserted through the anus and advanced through the colon and advanced to the cecum at 75 cm and terminal ileum.? Appendiceal orifice and ileocecal valve were identified. Mucosa was carefully examined under high definition white light as the instrument was slowly withdrawn in a retrograde panoramic fashion. Retroflexion was performed in rectum. The procedure was not difficult. The quality of the prep was BBPS: 3+2+3 = adequate Withdrawal time 10 minutes Limitations: No limitations Findings: Mucosa: Normal colon and terminal ileum mucosa. A small spontaneously bleeding anal fissure was noted. Protruding lesions: * Large internal hemorrhoids with stigmata of recent bleeding. Impression: 1. Grade C esophagitis 2. Hiatal hernia 3. Normal stomach (biopsy) 4. Normal duodenum (biopsy) 5. Normal colon and terminal ileum mucosa 6. Anal fissure 7. Internal and external hemorrhoids Recommendations:?? * Follow-up path results * Avoid NSAIDs * Increase omeprazole to twice a day * Repeat EGD to be booked 2-3 months to ensure healing and rule out underlying Ríos's * Start topical lidocaine/hydrocortisone once daily at bedtime for 14 days for anal fissure as well as hemorrhoids * Repeat colonoscopy for CRC screening in 10 years.
[2024-07-31 08:22] VITALS: BP 105/69; PULSE 114; RESP 18; TEMP 36.9; O2SAT 99
[2024-07-31 08:37] VITALS: BP 112/62; PULSE 105; RESP 18; O2SAT 96
[2024-07-31 08:52] VITALS: BP 115/60; PULSE 117; RESP 16; TEMP 36.9; O2SAT 98
== END 2024-07-31 10:01 | disposition home or self-care (01) ==
PROVIDERS: PCP Hospitalist; Visit Provider Internal Medicine
PROC: (CPT 45378; principal; 2024-07-31 07:30)
DX: Z12.11 Encounter for screening for malignant neoplasm of colon (principal); K64.8 Other hemorrhoids; K64.4 Residual hemorrhoidal skin tags; K60.2 Anal fissure, unspecified; K20.80 Other esophagitis without bleeding; K21.9 Gastro-esophageal reflux disease without esophagitis; K31.9 Disease of stomach and duodenum, unspecified; K44.9 Diaphragmatic hernia without obstruction or gangrene; R05.3 Chronic cough; I10 Essential (primary) hypertension; Z79.899 Other long term (current) drug therapy; Z88.0 Allergy status to penicillin; Z88.8 Allergy status to other drugs, medicaments and biological substances
CPT/HCPCS: 45378; 43239; 88305; 88313; 88342; J2003; J2704

== ENCOUNTER → 2024-07-31 06:07 | Outpatient (BNV) | payer BC, SELFPAY | PROVIDERS: PCP Hospitalist; Visit Provider Internal Medicine | DX: Z12.11 Encounter for screening for malignant neoplasm of colon (principal); K60.2 Anal fissure, unspecified; K21.00 Gastro-esophageal reflux disease with esophagitis, without bleeding; K29.70 Gastritis, unspecified, without bleeding | CPT/HCPCS: 43239 ==

== ENCOUNTER 2024-09-24 16:19 | Outpatient (AMB) | payer BC, SELFPAY ==
--- NOTE | 2024-09-24 16:22 | A.OFFVIS_ITS ---
Vital Signs 09/24/24 16:24 Height 5 ft 6 in Weight 152 lb BMI 24.5 BP 119/80 Blood Pressure Location Lt brachial Position Sitting Pulse 72 Pulse Oximetry (%) 98 Oxygen Delivery Method Room Air Intake Visit Reasons: f/u DOUBLE Intake Note: Patient post op for EGD/Colonoscopy results. Patient denies any GI issues for today visit. Chief Growth Officer Required: No Accompanied by: Self / Same As Patient Allergies lisinopril Allergy (Severe, Verified 09/24/24 16:22) Angioedema Penicillins Adverse Reaction (Intermediate, Verified 09/24/24 16:22) Palpitations HPI Comments Details: 58 y.o M who is here for abnl barium swallow. Pt reports prev hx of angioedema 2/2 lisinopril use. Now off lisinopril. Has been seeing cards and ENT for this who ordered barium swallow which has abnormal findings as below. 12/05/23: 1. Granular appearance of the mid and distal esophageal mucosa that likely represents reflux esophagitis. Patulous esophagus. 2. Felinization of the mid and distal esophageal mucosa. This is a benign finding that is associated with gastroesophageal reflux. 3. Small type I hiatal hernia 4. Moderate gastroesophageal reflux 5. Mildly thickened appearance of the gastric mucosal folds that may suggest gastritis, however, this may also be due to underdistention of the stomach from poor tolerance of the effervescent granules. 6. Significant delay in gastric emptying. Only a small portion of the barium reaches the duodenal bulb. Etiology is unclear. A functional disorder such as gastroparesis cannot be excluded as well. Recommend correlation with EGD. Consider gastric emptying study as well. Main issue now is heartburn and regurgitation. Worse after food estuardo after fatty foods. Noticing it while laying down. No issues swallowing. XR eso also suggests ? delayed emptying but pt does not report any abd discomofrt, nausea, vomiting, bloating, loss of appetite. CRC screening: cologuard 3y ago was negative. Due for screening. 07/31/24: 1. Grade C esophagitis 2. Hiatal hernia 3. Normal stomach (biopsy) 4. Normal duodenum (biopsy) 5. Normal colon and terminal ileum mucosa 6. Anal fissure 7. Internal and external hemorrhoids Recommendations:?? * Follow-up path results * Avoid NSAIDs * Increase omeprazole to twice a day * Repeat EGD to be booked 2-3 months to ensure healing and rule out underlying Ríos's * Start topical lidocaine/hydrocortisone once daily at bedtime for 14 days for anal fissure as well as hemorrhoids * Repeat colonoscopy for CRC screening in 10 years. 09/24/24: Here for post procedure follow up. Completed 8 weeks of omeprazole BID dosing and now once daily. Was not too symptomatic before EGD so difficult to say if sx have improved post anti secretory therapy. In terms of anal fissure - incidentally noted. Pt thinks may have had some anal discomfort with scant blood while prepping for colo but otherwise no anal/rectal pain. Never got the topical nitroglycerin from [facility]. Also reports intermittent increased urinary frequency unsure if related to diuretic meds. ERIK done during the colonoscopy is not driven towards dedicated prostate exam. [facility] Medical History (Updated 09/24/24 @ 16:48 by Vannesa Troncoso MD) GERD (gastroesophageal reflux disease) Hiatal hernia Chronic cough Laryngospasm Sinusitis Allergies Hypertension Surgical History Hx of colonoscopy No pertinent past surgical history Social History Do you presently have visiting nurse or other home services: No Alcohol intake: never Patient Tobacco Use Status: Never used Tobacco Review of Systems Const All systems reviewed & are unremarkable except as noted in HPI and below Physical Exam Vital Signs: Last Vital Signs Pulse 72 09/24/24 16:24 BP 119/80 09/24/24 16:24 Pulse Ox 98 09/24/24 16:24 Oxygen Delivery Method Room Air 09/24/24 16:24 BMI result Body Mass Index 24.5 No apparent distress Nonicteric Abdomen soft, nondistended Alert and oriented x3, normal gait Assessment & Plan Assessment & Plan (1) Esophagitis: Code(s): K20.90 - Esophagitis, unspecified without bleeding Category: Medical (2) GERD (gastroesophageal reflux disease): Code(s): K21.9 - Gastro-esophageal reflux disease without esophagitis Category: Medical (3) Anal fissure: Code(s): K60.2 - Anal fissure, unspecified Category: Medical (4) Increased urinary frequency: Code(s): R35.0 - Frequency of micturition Category: Medical Plan 1. Grade C esophagitis 2/2 GERD Plan: - Cont omeprazole 20 once daily - will likely need indefinitely due to documented gerd with esophagitis - Routine measures to avoid dietary triggers, reflux etc - Repeat EGD to assess for healing and r/o underlying BE to be booked 2. LUTS Possible urinary frequency. ?? BPH. Reviewed with the pt that ERIK during the colonoscopy does not replace a dedicated prostate exam but happy to refer to Urology for further evaluation. 3. Anal fissure Not symptomatic currently. Possibly had mild trauma during prep for colo. Plan: - Avoid constipation and straining - Add fiber such as psyllium husk daily - Lido/nitro topical cream Rxed to be used if pain sx develop 4. CRC screening No polyps 2024. Next colo due 2034. Orders: Referrals Urology Referral R35.0 - Frequency of micturition Medications: Refilled vqsloywbg-[id number]-qwyu 2.8-0.55 % 1 appl [place] BEDTIME 14 days 100 grams 0RF Coding Level of Care Code Est Pt Level 4 (39460) Diagnoses Esophagitis K20.90 GERD (gastroesophageal reflux disease) K21.9 Anal fissure K60.2 Increased urinary frequency R35.0
[2024-09-24 16:24] VITALS: BP 119/80; PULSE 72; O2SAT 98; BMI 24.5
--- OUTSIDE RECORDS SUMMARY | 2024-09-24 19:03 | XMS_ITS ---
Author Organization [facility] Address 294 [facility] [address] [place] [address] Care Team Providers Care Neuropsychology Director Name Role Phone MANNIE GARVEY Primary Care Provider Allergies Allergen (clinical drug ingredient) Drug/Non Drug Allergy documented on EMR Reaction Allergy Type Onset Date Status penicillamine Penicillamine Unknown Drug Allergy Active REASON FOR VISIT BP check Medications Medication SIG (Take, Route, Frequency, Duration) Notes Start Date End Date Status Albuterol Sulfate (2.5 MG/3ML) 0.083% 3 mL as needed Inhalation every 6 hrs for 30 days 09/19/2023 Not-Taking Lotrimin AF 1 % 1 application Externally Twice a day for 28 day(s) 12/15/2021 Unknown predniSONE 20 MG 1 tablet Orally Once a day for 7 days 09/14/2023 Not-Taking Fluticasone Propionate 50 MCG/ACT 1 spray in each nostril Nasally 2 TIMES DAY for 30 days 09/14/2023 Not-Taking Clotrimazole 1 % 1 application Externally Twice a day for 28 day(s) 12/15/2021 Unknown amLODIPine Besylate 10 MG 1 tablet Orall y Once a day for 30 days Active hydroCHLOROthiazide 12.5 MG 1 tablet in the morning Orally Once a day for 30 days 10/04/2023 Active Lansoprazole 30 MG 1 tablet Orally Once a day for 30 days 12/24/2023 Not-Taking Famotidine 40 MG TAKE 1 TABLET BY MOUTH EVERY DAY AT BEDTIME FOR 30 DAYS for 90 Not-Taking Albuterol Sulfate HFA 108 (90 Base) MCG/ACT 1 puff as needed Inhalation every 6 hrs for 30 days 09/14/2023 Not-Taking Omeprazole 20 MG 1 capsule 30 minutes before morning meal Orally 2 times a day 08/15/2024 Active Social History Tobacco Use: Social History Observation Description Date Details (start date - stop date) Never Smoker NA - NA Tobacco Use/Smoking Question Answer Notes Are you a nonsmoker Alcohol Screen (Audit-C) Question Answer Notes Did you have a drink containing alcohol in the p ast year? No Points 0 Interpretation Negative Vital Signs Temperature 97.4 degrees Fahrenheit 08/15/19 25 Oximetry 98 % 08/15/2024 Heart Rate 95 /min 08/15/2024 Blood pressure systolic 110 mm Hg 08/15/19 25 Blood pressure diastolic 70 mm Hg 025 Weight 155.2 lbs 08/15/2024 BMI 25.24 kg/m2 08/15/2024 Height 65.75 in 08/15/2024 Encounters Encounter Location Date Provider Diagnosis [facility] [address] [address] 08/15/2024 MANNIE GARVEY Essential (primary) hypertension I10 ; Prediabetes R73.03 and Gastritis, unspecified, without bleeding K29.70 Assessments Encounter Date Diagnosis (ICD Code) Assessment Notes Treatment Notes Treatment Clinical Notes Section Notes 08/15/2024 Essential (primary) hypertension (ICD-10 - I10) Lucas is pleasant 59 years old gentleman with hypertension, prediabetic, gastritis is here today for follow-up on hypertension. Plan is as follows Hypertension. Blood pressure in the office today is within normal limits. Continue current regimen of amlodipine 10 mg daily and HCTZ 12.5 mg daily. Continue low sodium diet, regular exercise. Prediabetes. Hemoglobin A1c 6.2. He has strong family history of diabetes. Advised dietary restrictions and recheck hemoglobin A1c in 6 months. Gastritis. Status post upper endoscopy and was started on omeprazole 20 mg 1 tablet twice a day. He has follow-up appointment with GI in August. He can take omeprazole 20 mg once a day if he is asymptomatic. Screening blood work reviewed 08/15/2024 Prediabetes (ICD-10 - R73.03) Lucas is pleasant 59 years old gentleman with hypertension, prediabetic, gastritis is here today for follow-up on hypertension. Plan is as follows Hypertension. Blood pressure in the office today is within normal limits. Continue current regimen of amlodipine 10 mg daily and HCTZ 12.5 mg daily. Continue low sodium diet, regular exercise. Prediabetes. Hemoglobin A1c 6.2. He has strong family history of diabetes. Advised dietary restrictions and recheck hemoglobin A1c in 6 months. Gastritis. Status post upper endoscopy and was started on omeprazole 20 mg 1 tablet twice a day. He has follow-up appointment with GI in August. He can take omeprazole 20 mg once a day if he is asymptomatic. Screening blood work reviewed 08/15/2024 Gastritis, unspecified, without bleeding (ICD-10 - K29.70) Lucas is pleasant 59 years old gentleman with hypertension, prediabetic, gastritis is here today for follow-up on hypertension. Plan is as follows Hypertension. Blood pressure in the office today is within normal limits. Continue current regimen of amlodipine 10 mg daily and HCTZ 12.5 mg daily. Continue low sodium diet, regular exercise. Prediabetes. Hemoglobin A1c 6.2. He has strong family history of diabetes. Advised dietary restrictions and recheck hemoglobin A1c in 6 months. Gastritis. Status post upper endoscopy and was started on omeprazole 20 mg 1 tablet twice a day. He has follow-up appointment with GI in August. He can take omeprazole 20 mg once a day if he is asymptomatic. Screening blood work reviewed Plan Of Treatment Future Test Test Name Order Date Hemoglobin [id number] 08/15/2024 Next Appt Details Follow Up: 6 Months, Reason: Provider Name:MANNIE GARVEY , 01/22/2025 03:30:00 PM, [address] [place] [address], [address], Progress Notes * Daysi FARRELLOB:1965 (59 yo M)Acc No.[id number]:08/15/2024 Progress Notes Patient:?Rain FARRELLqan Provider:?MANNIE GARVEY MD :1965???Age:59 Y???Sex:Male Dallin e:08/15/2024 Address:[address] [place], [place] [id number] Subjective: * Chief Complaints: * ???BP check * HPI: ???Internal Medicine:?Lucas is a 58-year-old gentleman with hypertension, acid reflux, prediabetes?is here for? follow-up on hypertension.? On his last visit his blood pressure was running high and he was not compliant with medication.? Now he is taking medication religiously and his blood pressure in the office is within recommended range.?He recently had upper endoscopy which showed gastritis and started on omeprazole.? Colonoscopy was negative.? No other issues. * ROS:?General/Constitutional:?Overall health?Good.?Change in appetite?denies.?Chills?denies.?Fever?denies.?Night sweats?denies.?Sleep disturbance?denies.?Weight [...] ?Marital status: . 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 * Medications:?TakingOmeprazol e 20 MG Capsule Delayed Release 1 capsule 30 minutes before morning meal Orally 2 times a day amLODIPine Besylate 10 MG Tablet 1 tablet Orally Once a day hydroCHLOROthiazide 12.5 MG Tablet 1 tablet in the morning Orally Once a day Taking Omeprazole 20 MG Capsule Delayed Release 1 capsule 30 minutes before morning meal Orally 2 times a day Taking amLODIPine Besylate 10 MG [...] * Allergies:?Penicillamine: Mandeep avery[Allergies Verified] Objective: * Vitals:?Temp:97.4F, Oxygen s at %:98%, HR:95/min, BP: 110/82 mm Hg,110/70mm Hg, Wt:155.2lbs, BMI:25.24Index, Ht: 65.75 in. * ???Past Orders: ???Lab:Comp. Metabolic Panel ([id number] (Order Date - 07/24/2024) (Collection Date & Time - 07/25/2024 09:01 AM) ? Value Reference Range ?Glucose 99 70-99 - mg/d L ?BUN 14 6-24 - mg/dL ?Creatinine 1.06 0.76-1.27 - mg/dL ?BUN/Creatinine Ratio 13 9-20 - ?Sodium 141 134-144 - mmo l/L ?Potassium 4.2 3.5-5.2 - mmol/L ?Chloride 104 96-106 - mm ol/L ?Carbon Dioxide, Total 23 20-29 - mmol/L ?Calcium 9.1 8.7-10.2 - m g/dL ?Protein, Total 7.6 6.0-8 .5 - g/dL ?Albumin 4.1 3.8-4.9 - g/ dL ?Globulin, Total 3.5 1.5- 4.5 - g/dL ?Bilirubin, Total 0.3 0.0 -1.2 - mg/dL ?Alkaline Phosphatase 77 44-121 - IU/L ?AST (SGOT) 23 0-40 - IU /L ?ALT (SGPT) 25 0-44 - IU /L ?eGFR 81 >59 - mL/min/1. 73 ???Lab:Lipid Panel-[id number] (O rder Date - 07/24/2024) (Collection Date & Time - 07/25/2024 09:01 AM) ? Value Reference Range ?Cholesterol, Total 68 L 1 00-199 - mg/dL ?Triglycerides 41 0-149 - mg/dL ?HDL Cholesterol 32 L >39 - mg/dL ?VLDL Cholesterol Jacob 12 5-40 - mg/dL ?LDL Chol Calc (NIH) 24 0-99 - mg/dL ???Lab:Albumin/Creatinine Ra kaci,Urine-[id number] (Order Date - 07/24/2024) (Collection Date & Time - 07/25/2024 09:01 AM) ? Value Reference Range ?Creatinine, Urine 328.2 No t Estab. - mg/dL ?Albumin, Urine 284.1 Not E stab. - ug/mL ?Alb/Creat Ratio 87 H 0-29 - mg/g creat ???Lab:Hemoglobin [id number] (Order Date - 07/24/2024) (Collection Date & Time - 07/25/2024 09:01 AM) ? Value Reference Range ?Hemoglobin A1c/ Hemoglobin total 6.2 H 4.8-5.6 - % ???Lab:PSA (Serial Monitor)- [id number] (Order Date - 07/24/2024) (Collection Date & Time - 07/25/2024 09:01 AM) ? Value Reference Range ?Prostate Specific Ag 0.7 0.0-4.0 - ng/mL * Examination: ???General Examination: ?Psychiatry?Normal.?GENERAL APPEARANCE:?Well developed, [...] and lower extremities, sensory exam intact.?FEMALE GENITOURINARY:?__.?MALE GENITOURINARY:?declined.?PODIATRIC:?Normal.?Infection Preventionist? .? Assessment: * Assessment: 1.?Essential (primary) hyper tension - I10 (Primary)???2.?Prediabetes - R73.03???3.?Gastritis, unspecified, without bleeding - K29.70??? Lucas is pleasant 59 years old gentleman with hypertension, prediabetic, gastritis is here today for follow-up on hypertension.? Plan is as follows Hypertension.? Blood pressure in the office today is within normal limits.? Continue current regimen of amlodipine 10 mg daily and HCTZ 12.5 mg daily.? Continue low sodium diet, regular exercise. Prediabetes.? Hemoglobin A1c 6.2.? He has strong family history of diabetes.? Advised dietary restrictions and recheck hemoglobin A1c in 6 months. Gastritis.? Status post upper endoscopy and was started on omeprazole 20 mg 1 tablet twice a day.? He has follow-up appointment with GI in August.? He can take omeprazole 20 mg once a day if he is asymptomatic. Screening blood work reviewed Plan: * Treatment: * Procedure Codes:?3078F DIAST BP < 80 MM [id number] SYST BP LT 130 MM HG * Preventive Medicine:?EGD and colonoscopy August 2024 at [facility]. * Follow Up:?6 Months * * Sign off status: Completed true * Provider:?MANNIE GARVEY MD Date:?08/15 Generated for Mathew harden/Bay/Katrinitting on:?09/24/2024 07:02 PM EDT History and Physical Notes * HPI (History of Present Illness) Category Sub-Category Detail Notes Category Not es Internal Medicine Lucas is a 58-year-old gentleman with hypertension, acid reflux, prediabetes is here for follow-up on hypertension. On his last visit his blood pressure was running high and he was not compliant with medication. Now he is taking medication religiously and his blood pressure in the office is within recommended range. He recently had upper endoscopy which showed gastritis and started on omeprazole. Colonoscopy was negative. No other issues Examination Category Sub-Category Detail Notes Category Not [...] PODIATRIC: Normal Psychiatry Normal OROPHARYNX Normal SINUSES Infection Preventionist
--- OUTSIDE RECORDS SUMMARY | 2024-09-24 19:03 | XMS_ITS ---
Author Organization [facility] Address [address] [address] Care Team Providers Care Travel Ticketing Reviewer Name Role Phone MANNIE GARVEY Primary Care Provider [phone] REASON FOR VISIT BP update/Medication inq. Encounters Encounter Location Date Provider Diagnosis [facility] 294 [facility] [address] [place] [address] 08/08/2024 MANNIE GARVEY Plan Of Treatment Next Appt Details Provider Name:MANNIE GARVEY , 01/22/2025 03:30:00 PM, [address] [place] [address] [address], [place], [address], Progress Notes * Rain FARRELLMakaylaOB:1965 (59 yo M)Acc No.[id number]:08/08/2024 Patient:?Lucas FARRELL :1965???Age:59 Y???Sex:Male Address:[address] [place] [address] [place] [address] * true * Date:? Generated for Printi dereck/Fatiffanie/eTransmitting on:?09/24/2024 07:03 PM EDT
--- OUTSIDE RECORDS SUMMARY | 2024-09-24 19:03 | XMS_ITS ---
Author Organization [facility] Address [address] [facility] [address] [place] [address] Care Team Providers Care Poultry Farmer Meat Name Role Phone MANNIE GARVEY Primary Care Provider [phone] REASON FOR VISIT Appt needed Encounters Encounter Location Date Provider Diagnosis [address] [place] [address] 08/08/2024 MANNIE GARVEY Plan Of Treatment Next Appt Details Provider Name:MANNIE GARVEY , 01/22/2025 03:30:00 PM, [address] [facility] [address], [place], [address], Progress Notes * Daysi FARRELLOB:1965 (59 yo M)Acc No.[id number]:08/08/2024 Patient:?Lucas FARRELL :1965???Age:59 Y???Sex:Male Address:[address] [place] [address] [place] [address] * true * Date:? Generated for Printi dereck/Faradg/eTransmitting on:?09/24/2024 07:03 PM EDT
--- OUTSIDE RECORDS SUMMARY | 2024-09-24 19:03 | XMS_ITS | Patient Health Record ---
Author Organization [facility] Address [address] [facility] [address] [place] [address] Care Team Providers Care Certified Ophthalmic Assistant Name Role Phone MANNEI GARVEY Primary Care Provider Renan Vidal Unavailable [phone] Allergies Allergen (clinical drug ingredient) Drug/Non Drug Allergy documented on EMR Reaction Allergy Type Onset Date Status penicillamine Penicillamine Unknown Drug Allergy Active Results Component Value Reference Range Notes PSA (Serial Monitor)-[id number] Reviewed date:07/28/2024 04:54:21 PM Interpretation: Performing Lab:[facility], [address] [facility], Phone - [phone], Director - MDJodry Notes/Report: Prostate Specific Ag 0.7 0.0-4.0 ng/mL Satnam ECLIA methodology. . According to the [employer], Serum PSA should decrease and [...] the presence or absence of malignant disease. Hemoglobin [id number] Reviewed date:07/28/2024 04:54:25 PM Interpretation: Performing Lab:[facility], [address] [facility], [place], Phone - [phone], Director - MDJodry Notes/Report: Hemoglobin A1c 6.2 4.8-5.6 % . Prediabetes: 5.7 - 6.4 Diabetes: >6.4 Glycemic control for adults with diabetes: <7.0 Albumin/Creatinine Ratio,Uri ne-[id number] Reviewed date:07/28/2024 04:54:29 PM Interpretation: Performing Lab:[facility] [place], [address] [facility], Phone - [phone], Director - MDGranty Notes/Report: Creatinine, Urine 328.2 Not Estab. mg/dL Albumin, Urine 284.1 Not Estab. ug/mL Alb/Creat Ratio 87 0-29 mg/g creat Normal: 0 - 29 Moderately increased: 30 - 300 Severely increased: >300 Lipid Panel-[id number] Reviewed date:07/28/2024 04:58:52 PM Interpretation: Performing Lab:[facility] [place], [address] [facility], [place], Phone - [phone], Director - MDJoy Notes/Report: Cholesterol, Total 68 100-199 mg/dL Triglycerides 41 0-149 mg/dL HDL Cholesterol 32 >39 mg/dL VLDL Cholesterol Jacob 12 5-40 mg/dL LDL Chol Calc (NIH) 24 0-99 mg/dL Comp. Metabolic Panel ([id number] Reviewed date:07/28/2024 04:58:56 PM Interpretation: Performing Lab:[facility] [place], [address] [facility], Phone - [phone], Director - MDJodry Notes/Report: Glucose 99 70-99 [...] 0-40 IU/L ALT (SGPT) 25 0-44 IU/L Reason For Referral Reason Evaluation and manag ement Diagnosis 1 Gastro-esophageal re flux disease without esophagitis (K21.9) Diagnosis 2 Gastritis, unspecifi ed, without bleeding (K29.70) Referral Organization [facility] Referring Provider First Name CHAND Referring Provider Last Name GURU Referring Provider Speciality Internal M edicine Referred Provider undefined Referred Provider Specialty Gastroentero logy General Notes Referral faxed to [facility] - Department will call the patient for scheduling.Spencer Latraya 12/20/2023 03:36:52 PM > Referral Priority Routine Reason Evaluation and manag ement Diagnosis 1 Gastritis, unspecifi ed, without bleeding (K29.70) Referral Organization [facility] Referring Provider First Name Renan Referring Provider Last Name Young Referred Provider Specialty Gastroentero logy General Notes Referral faxed to [facility] [place] - Dept will call patient for scheduling., [...] TIMES DAY for 30 days 09/14/2023 Not-Taking amLODIPine Besylate 10 MG 1 tablet Orall y Once a day for 30 days Active hydroCHLOROthiazide 12.5 MG 1 tablet in the morning Orally Once a day for 30 days 10/04/2023 Active Clotrimazole 1 % 1 application Externally Twice a day for 28 day(s) 12/15/2021 Unknown Omeprazole 20 MG 1 capsule 30 minutes before morning meal Orally 2 times a day 08/15/2024 Active Lansoprazole 30 MG 1 tablet Orally Once a day for 30 days 12/24/2023 Not-Taking Famotidine 40 MG TAKE 1 TABLET BY MOUTH EVERY DAY AT BEDTIME FOR 30 DAYS for 90 Not-Taking Albuterol Sulfate HFA 108 (90 Base) MCG/ACT 1 puff as needed Inhalation every 6 hrs for 30 days 09/14/2023 Not-Taking Immunizations Vaccine Route Administration Date Status Comme [...] Notes Problem Gastro-esophageal reflux disease without esophagitis (181120750) Gastro-esophage al reflux disease without esophagitis (K21.9) Active confirmed Problem Gastroduodenitis (448056005) Gastritis, unspecified, without bleeding (K29.70) Active confirmed Problem Proteinuria (51302395) Proteinuria, unspecified (R80.9) Active confirmed Problem Adult health examination (564278075) Encounter for general adult medical examination without abnormal findings (Z00.00) Active confirmed Problem Essential hypertension (00624437) Essential (primary) hypertension (I10) Active confirmed Problem History of disease caused by Severe acute respiratory syndrome coronavirus 2 (situation) (989772208135544001 ) Personal history of COVID-19 (Z86.16) Active confirmed Vital Signs Heart Rate 95 /min 08/15/2024 Temperature 97.4 degrees Fahrenheit 08/15/2024 Oximetry 98 % 08/15/2024 Blood pressure diastolic 70 mm Hg 08/15/2024 Height 65.75 in 08/15/2024 Blood pressure systolic 110 mm Hg 08/15/2024 Weight 155.2 lbs 08/15/2024 BMI 25.24 kg/m2 08/15/2024 Encounters Encounter Location Date Provider Diagnosis [address] [place] [address] 01/14/2024 Renan Vidal Essential (primary) hypertension I10 ; Gastritis, unspecified, without bleeding K29.70 and Impaired fasting blood sugar R73.[address] [place] [address] 07/24/2024 [facility] Essential (primary) hypertension I10 ; Encounter for general adult medical examination without abnormal findings Z00.00 ; Gastritis, unspecified, without bleeding K29.70 and Impaired fasting blood sugar R73.[address] [place] [address] 08/15/2024 [facility] Essential (primary) hypertension I10 ; Prediabetes R73.03 and Gastritis, unspecified, without bleeding K29.[address] [place] [address] 10/04/[address] [place] [address] 10/17/[address] [place] [address] 12/20/[address] [place] [address] 12/24/[address] [place] [address] 07/17/[address] [place] [address] 08/08/[address] [place] [address] 08/08/2024 [facility] Assessments Encounter Date Diagnosis (ICD Code) Assessment [...] the above mentioned assessment and plan 07/24/2024 Encounter for general adult medical examination [...] to have colonoscopy and upper endoscopy at [facility] on July 31, 2024 Impaired fasting [...] to have colonoscopy and upper endoscopy at [facility] on July 31, 2024 Impaired fasting glucose; A1C is elevated from 6.0 to 6.1. Dietary modifications is highly recommended. We will repeat A1c. screening blood work ordered. Advised to get pneumonia and shingles vaccine 08/15/2024 Essential (primary) hypertension (ICD-10 - I10) [...] he is asymptomatic. Screening blood work reviewed 01/14/2024 Impaired fasting blood sugar (ICD-10 - [...] the above mentioned assessment and plan 07/24/2024 Gastritis, unspecified, without bleeding (ICD-10 - [...] to have colonoscopy and upper endoscopy at [facility] on July 31, 2024 Impaired fasting [...] to have colonoscopy and upper endoscopy at [facility] on July 31, 2024 Impaired fasting [...] MICROALBUMIN, URINE 09/30/2021 Hgb A1c with eAG Estimation-[id number] 01/13 Future Test Test Name Order Date Hemoglobin [id number] 08/15/2024 Next Appt Details Provider Name:MANNIE GARVEY , 01/22/2025 03:30:00 PM, [address] [place] [address], [place], [address], Insurance Providers Payer Name Payer Address Payer Phone Subscriber Number Group Number Insured Name Patient Relationship to Insured Coverage Start Date Coverage End Date [facility] [address] [place] [address] [id number] Lucas Farrell Self - patient is the insured 7 Medical (General) History Medical History History ICD Code Hypertension Impaired fasting glucose Proteinuria Personal history of COVID-19 Surgical History Surgery Date(Month/Year) Hospitalization History Reason Date(Month/Year)
== END 2024-09-24 16:59 | disposition home or self-care (01) ==
LOC: HO.HGI 16:20
PROVIDERS: PCP Hospitalist; Visit Provider Internal Medicine
DX: K20.90 Esophagitis, unspecified without bleeding (principal); K21.9 Gastro-esophageal reflux disease without esophagitis; K60.2 Anal fissure, unspecified; R35.0 Frequency of micturition
CPT/HCPCS: 99214

== ENCOUNTER 2024-11-25 08:12 | Outpatient (REF) | payer BC, SELFPAY ==
[2024-11-25 16:35] LABS: Urine Cytology See Pathology rpt
== END 2024-11-25 08:13 | disposition home or self-care (01) ==
LOC: HO.LNP 08:12
PROVIDERS: PCP Hospitalist; Visit Provider Nurse Practitioner Family
DX: R35.0 Frequency of micturition (principal)
CPT/HCPCS: 51798; 81003; 88112

== ENCOUNTER 2024-11-25 08:12 | Outpatient (AMB) | payer BC, SELFPAY ==
--- NOTE | 2024-11-25 08:19 | A.OFFVIS_ITS ---
Intake Visit Reasons: urinary frequency Intake Note: Pt presents to the office for a new patient visit for Urinary frequency. PVR:57ml Allergies lisinopril Allergy (Severe, Verified 11/25/24 08:40) Angioedema Penicillins Adverse Reaction (Intermediate, Verified 11/25/24 08:40) Palpitations Medication List - Last Reconciled 11/25/24 by CLARITZA Salinas amlodipine 10 mg PO DAILY budesonide 0.5 mg (2 mL) inhalation DAILY 30 days hydrochlorothiazide 12.5 mg PO DAILY qwtajimut-gpatiuivmmrsxv-hhzg 2.8-0.55 % 1 appl [place] BEDTIME 14 days nebulizers As directed nebulizers As directed omeprazole 20 mg PO BID 90 days HPI Comments Details: Lucas is a pleasant 59-year-old male patient of Dr. Nogueira. He has a past medical history of anal fissure, hypertension, GERD, hiatal hernia, sinusitis, and allergies. He presents to the office today as a new patient for increased urinary frequency. In discussion with the patient today he reports following up with his PCP in discussing episodes of urinary frequency however feels since this appointment symptoms have somewhat improved. He reports feeling initially symptoms were related to his blood pressure medication. He currently denies any bothersome urinary issues or concerns. He denies urinary urgency, urinary frequency, incontinence, nocturia, hematuria, dysuria, foul smelling urine, changes to urinary stream, flank pain, fever, and or chills. He is happy with his current voiding parameters. In office urinalysis results reviewed with the patient today trace microscopic hematuria noted. When asked he denies any previous history of nicotine dependence and or workplace chemical exposure. ERIK performed smooth, no masses or nodules palpated however right side does feel firm. We discussed potential causes of urinary frequency as well as microscopic hematuria. PVR 57 mLs. We discussed obtaining retroperitoneal ultrasound and PSA for further assessment evaluation. All questions were answered. He otherwise offers no other issues or concerns at this time. [facility] Medical History GERD (gastroesophageal reflux disease) Hiatal hernia Chronic cough Laryngospasm Sinusitis Allergies Hypertension Surgical History Hx of colonoscopy No pertinent past surgical history Social History Do you presently have visiting nurse or other home services: No Alcohol intake: never Patient Tobacco Use Status: Never used Tobacco Review of Systems Const All systems reviewed & are unremarkable except as noted in HPI and below Physical Exam Const General: cooperative, healthy appearing, comfortable, no acute distress, well developed, alert and awake Orientation/consciousness: patient oriented x3 Limitations: no limitations HEENT Head: Yes normal to inspection, Yes normocephalic and Yes atraumatic Ears: hearing grossly normal bilaterally Eyes General: appearance normal, both eyes and all related structures Neck Neck: Yes normal visual inspection and Yes trachea midline Chest Chest palpation & inspection: normal inspection of the chest Resp Effort & Inspection: normal respiratory effort and able to speak in complete sentences Cardio Rate: regular rate GI Inspection: Yes normal to inspection General: Yes no CVA tenderness Back/Spine/Pelvis Back: no CVA tenderness Skin General skin exam: no rashes or lesions noted Neuro General: patient oriented x3 Extrem General: Yes normal to inspection Psych Appearance: grossly normal and well kempt Mental Status: mental status grossly normal Speech and movement: Normal speech and movement present and Clear speech present Affect: normal affect Attitude: cooperative Thought process: Normal thought process present Thought content: Normal thought content present Insight: Fair insight present (Psych) Judgement: Fair judgement present (Psych) Office Procedures Post Void Residual Post Residual Void Post Void Residual (PVR): 57 83921-Fyhe Void Residual by ultrasound Results AMB Urinalysis, Automated UA Leukoctes 0 Glory/uL Last Edit by Marina Quiñones CMA on 11/25/24 08:26 UA Nitrite Negative Last Edit by Marina Quiñones CMA on 11/25/24 08:26 UA Urobilinogen 0.2 mg/dL Last Edit by Marina Quiñones CMA on 11/25/24 08:26 UA Protein 15 mg/dL Last Edit by Marina Quiñones CMA on 11/25/24 08:26 UA pH 6.0 Last Edit by Marina Quiñones CMA on 11/25/24 08:26 UA Blood 10 Brett/uL Last Edit by Marina Quiñones CMA on 11/25/24 08:26 UA Specific [place] 1.015 Last Edit by Marina Quiñones CMA on 11/25/24 08:26 UA Ketone Negative Last Edit by Marina Quiñones CMA on 11/25/24 08:26 UA Bilirubin 0 mg/dL Last Edit by Marina Quiñones CMA on 11/25/24 08:26 UA Glucose 0 mg/dL Last Edit by Marina Quiñones CMA on 11/25/24 08:26 Results Reviewed Results Reviewed: Laboratory Last Values Urine pH (Auto) 6.0 11/25/24 08:25 Specific [place] (Auto) 1.015 11/25/24 08:25 Urine Protein (Auto) 15 mg/dL 11/25/24 08:25 Glucose (UA)(Auto) 0 mg/dL 11/25/24 08:25 Urine Ketones (Auto) Negative 11/25/24 08:25 Urine Blood (Auto) 10 Brett/uL 11/25/24 08:25 Urine Nitrite (Auto) Negative 11/25/24 08:25 Urine Bilirubin (Auto) 0 mg/dL 11/25/24 08:25 Urine Urobilinogen (Auto) 0.2 mg/dL 11/25/24 08:25 Leukocyte Esterase (Auto) 0 Glory/uL 11/25/24 08:25 Assessment & Plan Assessment & Plan (1) Increased urinary frequency: Code(s): R35.0 - Frequency of micturition Category: Medical (2) Microscopic hematuria: Code(s): R31.29 - Other microscopic hematuria Category: Medical Plan In office urinalysis results reviewed with the patient today; as noted above. PVR 57 mL. He reports be happy with current voiding parameters at this time He currently denies any bothersome urinary issues or concerns. ERIK performed; as noted above. We discussed potential causes of microscopic hematuria as well as urinary frequency. We discussed obtaining retroperitoneal ultrasound for further assessment evaluation. Will obtain PSA for further assessment evaluation. We discussed bladder triggers/irritants. Follow-up in 1-3 months with imaging and lab to be completed prior; or sooner with any issues, concerns, and or questions. Orders: Orders AMB Post Void Residual by ultrasound Today R35.0 - Frequency of micturition Urine Cytology Today Z13.9 - Encounter for screening, unspecified US retroperitoneal comp Today R35.0 - Frequency of micturition AMB Urinalysis Automated Today R35.0 - Frequency of micturition Prostate Specific Antigen Today R35.0 - Frequency of micturition Patient Instructions: The patient had an opportunity to ask questions regarding the treatment plan. All questions were answered. Physical exam, labs, and imaging were discussed and reviewed in detail. As well as risks, benefits, and discussion of treatment choices. No major barriers to understanding were identified. The patient expressed understanding and agreement with the above treatment plan. The patient was made aware they should contact our office by phone for worsening of their current condition, the appearance of new symptoms, or with any questions or concerns. Compliance is encouraged with any medications and follow up testing that is ordered. It is a privilege to be allowed the opportunity to participate in? your urological care.? Again, if you have any questions or concerns If you have any questions or concerns please do not hesitate to contact me. The office is [phone]. This note is constructed using voice recognition software. While every effort has been made to ensure accuracy restaurant shift leader errors may have been included. Yours sincerely, CLARITZA Salinas Coding Level of Care Code New Pt Level 3 (23482) Diagnoses Increased urinary frequency R35.0 Microscopic hematuria R31.29 CPT Codes Post Residual Void - PVR CPT Code: 64022-Ijzq Void Residual by ultrasound ([id number])
== END 2024-11-25 08:40 | disposition home or self-care (01) ==
LOC: HO.HUSH 08:13
PROVIDERS: PCP Hospitalist; Visit Provider Nurse Practitioner Family
DX: R35.0 Frequency of micturition (principal); R31.29 Other microscopic hematuria
CPT/HCPCS: 99203

== ENCOUNTER 2025-02-18 10:24 | Outpatient (REF) | payer BC, SELFPAY ==
--- NOTE | ~2025-02-18 | US_ITS ---
CLINICAL HISTORY: R35.0 - Frequency of micturition US retroperitoneum with color Doppler Comparison: None Findings: Right kidney normal size and echotexture, 12.3 cm length. No hydronephrosis. Normal color flow. No nephrolithiasis. Renal cortical cyst lower pole has benign measuring 2.5 x 2.9 x 3.2 cm. Left kidney normal size and echotexture, 12.3 cm in length. No hydronephrosis. Normal color flow. No nephrolithiasis. No renal masses. Urinary bladder is unremarkable. Prevoid volume 462.3 mL. Postvoid volume 161.1 mL. Ureteral jets are visualized bilaterally Prostate measures 4.5 x 4.6 x 5.6 cm. Impression: 1. Kidneys normal size and position with normal cortical width and echotexture. Incidental renal cortical cysts on the right. No evidence of obstructive uropathy. 2. Elevated postvoid residual bilateral ureteral jets were demonstrated 3. Prostate volume 61.2 mL This document has been electronically signed by: Hany Hamilton MD on 02/19/2025 16:00:18
--- OUTSIDE RECORDS SUMMARY | 2025-02-18 11:38 | XMS_ITS | Patient Health Record ---
[facility] Organization [facility] Address [address] [place] [address] Care Team Providers Care Auto Parker Name Role Phone MANNIE GARVEY Primary Care Provider [phone] Allergies Allergen (clinical drug ingredient) Drug/Non Drug Allergy documented on EMR Reaction Allergy Type Onset Date Status penicillamine Penicillamine Unknown Drug Allergy Active Results Component Value Reference Range Notes Hemoglobin [id number] Reviewed date:01/22/2025 07:57:15 AM Interpretation: Performing Lab:[facility], [address] [place] [address], Phone - [phone], Director - MDJodry Notes/Report: Hemoglobin A1c 6.9 4.8-5.6 % . Prediabetes: 5.7 - 6.4 Diabetes: >6.4 Glycemic control for adults with diabetes: <7.0 PSA (Serial Monitor)-[id number] Reviewed date:07/28/2024 04:54:21 PM Interpretation: Performing Lab:[facility] [address] [place] [address], Phone - [phone], Director - MDJodry Notes/Report: Prostate Specific Ag 0.7 0.0-4.0 ng/mL Satnam ECLIA methodology. . According to the [employer], Serum PSA should decrease and [...] presence or absence of malignant disease. Hemoglobin [id number] Reviewed date:07/28/2024 04:54:25 PM Interpretation: Performing Lab:[facility], [place], Phone - [phone], Director - Erlin Notes/Report: Hemoglobin A1c 6.2 4.8-5.6 % . Prediabetes: 5.7 - 6.4 Diabetes: >6.4 Glycemic control for adults with diabetes: <7.0 Albumin/Creatinine Ratio,Uri ne-[id number] Reviewed date:07/28/2024 04:54:29 PM Interpretation: Performing [facility], [address] [place] [address], Phone - [phone], Director - Erlin Notes/Report: Creatinine, Urine 328.2 Not Estab. mg/dL Albumin, Urine 284.1 Not Estab. ug/mL Alb/Creat Ratio 87 0-29 mg/g creat Normal: 0 - 29 Moderately increased: 30 - 300 Severely increased: >300 Lipid Panel-[id number] Reviewed date:07/28/2024 04:58:52 PM Interpretation: Performing Lab:[facility], [address] [place] [address], Phone - [phone], Director - Erlin Notes/Report: Cholesterol, Total 68 100-199 mg/dL Triglycerides 41 0-149 mg/dL HDL Cholesterol 32 >39 mg/dL VLDL Cholesterol Jacob 12 5-40 mg/dL LDL Chol Calc (NIH) 24 0-99 mg/dL Comp. Metabolic Panel (14)-3 12740 Reviewed date:07/28/2024 04:58:56 PM Interpretation: Performing Lab:[facility], [address] [place] [address], Phone - [phone], Director - Erlin Notes/Report: Glucose 99 70-99 mg/dL BUN 14 [...] (SGPT) 25 0-44 IU/L Reason For Referral No Information Medications Medication SIG (Take, Route, Frequency, Duration) Notes Start Date End Date Status Lansoprazole 30 MG 1 tablet Orally Once a day; Duration: 30 days 12/24/2023 Not-Taking Famotidine 40 MG TAKE 1 TABLET BY MOUTH EVERY DAY AT BEDTIME FOR 30 DAYS; Duration: 90 Not-Taking amLODIPine Besylate 10 MG 1 tablet Orall y Once a day; Duration: 30 days Active hydroCHLOROthiazide 12.5 MG 1 tablet in the morning Orally Once a day; Duration: 30 days Active Fluticasone Propionate 50 MCG/ACT 1 spray in each nostril Nasally 2 TIMES DAY; Duration: 30 days 09/14/2023 Not-Taking Albuterol Sulfate (2.5 MG/3ML) 0.083% 3 mL as needed Inhalation every 6 hrs; Duration: 30 days 09/19/2023 Not-Taking Albuterol Sulfate HFA 108 (90 Base) MCG/ACT 1 puff as needed Inhalation every 6 hrs; Duration: 30 days 09/14/2023 Not-Taking predniSONE 20 MG 1 tablet Orally Once a day; Duration: 7 days 09/14/2023 Not-Taking Clotrimazole 1 % 1 application Externally Twice a day; Duration: 28 day(s) 12/15/2021 Unknown Omeprazole 20 MG 1 capsule 30 minutes before morning meal Orally 2 times a day 08/15/2024 Active Lotrimin AF 1 % 1 application Externally Twice a day; Duration: 28 day(s) 12/15/2021 Unknown Immunizations Vaccine Route [...] Notes Problem Gastro-esophageal reflux disease without esophagitis (394979356) Gastro-esophage al reflux disease without esophagitis (K21.9) Active confirmed Problem Gastroduodenitis (288204794) Gastritis, unspecified, without bleeding (K29.70) Active confirmed Problem Proteinuria (26293377) Proteinuria, unspecified (R80.9) Active confirmed Problem Adult health examination (612187089) Encounter for general adult medical examination without abnormal findings (Z00.00) Active confirmed Problem Essential (primary) hypertension (I10) Active confirmed Problem History of disease caused by Severe acute respiratory syndrome coronavirus 2 (situation) ([id number] ) Personal history of COVID-19 (Z86.16) Active confirmed Vital Signs Heart Rate 74 /min 01/22/2025 Temperature 97.1 degrees Fahrenheit 01/22/2025 Blood pressure diastolic 88 mm Hg 01/22/2025 Oximetry 99 % 01/22/2025 Height 65.75 in 01/22/2025 Blood pressure systolic 122 mm Hg 01/22/2025 Weight 159.0 lbs 01/22/2025 BMI 25.86 kg/m2 01/22/2025 Encounters Encounter Location Date Provider Diagnosis [address] [address] 07/24/2024 CHAND GUL Essential (primary) hypertension I10 ; Encounter for general adult medical examination without abnormal findings Z00.00 ; Gastritis, unspecified, without bleeding K29.70 and Impaired fasting blood sugar R73.[address] [place] [address] 08/15/2024 CHAND GUL Essential (primary) hypertension I10 ; Prediabetes R73.03 and Gastritis, unspecified, without bleeding K29.[address] [address] 01/22/2025 CHAND GUL Essential (primary) hypertension I10 ; Prediabetes R73.03 ; Gastritis, unspecified, without bleeding K29.70 and Rash and other nonspecific skin eruption R21 [address] [place] [address] 07/17/2024 [facility] [address] [place] [address] 08/08/2024 CH[facility] [address] [place] [address] 08/08/2024 MANNIE GARVEY Assessments Encounter Date Diagnosis (ICD Code) Assessment Notes Treatment Notes Treatment Clinical Notes Section Notes 07/24/2024 Encounter for general adult medical examination [...] to have colonoscopy and upper endoscopy at [facility] on July 31, 2024 Impaired fasting glucose; [...] to have colonoscopy and upper endoscopy at [facility] on July 31, 2024 Impaired fasting glucose; A1C is elevated from 6.0 to 6.1. Dietary modifications is highly recommended. We will repeat A1c. screening blood work ordered. Advised to get pneumonia and shingles vaccine 08/15/2024 Essential (primary) hypertension (ICD-10 - I10) Lucas nieto pleasant 59 years old gentleman with hypertension, [...] 08/15/2024 Prediabetes (ICD-10 - R73.03) Lucas is bridget 59 years old gentleman with hypertension, prediabetic, [...] he is asymptomatic. Screening blood work reviewed 01/22/2025 Essential (primary) hypertension (ICD-10 - I10) Lucas is bridget 59 years old gentleman with hypertension, prediabetic, gastritis is here today for follow-up on hypertension and hemoglobin A1c. Plan is as follows Hypertension. Blood pressure in the office today is within normal limits. Continue current regimen of amlodipine 10 mg daily and HCTZ 12.5 mg daily. Continue low sodium diet, regular exercise. Prediabetes. Hemoglobin A1c 6.9. it is technically in diabetic range and is not interested in pharmacotherapy and want to try dietary and lifestyle modifications and recheck in 3 months He has strong family history of diabetes. months. Gastritis. Status post upper endoscopy and was started on omeprazole 20 mg 1 tablet twice a day. He has follow-up appointment with GI in August. He can take omeprazole 20 mg once a day if he is asymptomatic. Rash right cheekbone. Most likely viral rash after upper respiratory tract infection. It is slightly better and he can use mwgm-ebj-xqcsrgw cortisone cream for the next couple of weeks and let us know. Screening blood work reviewed 01/22/2025 Prediabetes (ICD-10 - R73.03) Lucas nieto pleasant 59 years old gentleman with hypertension, prediabetic, gastritis is here today for follow-up on hypertension and hemoglobin A1c. Plan is as follows Hypertension. Blood pressure in the office today is within normal limits. Continue current regimen of amlodipine 10 mg daily and HCTZ 12.5 mg daily. Continue low sodium diet, regular exercise. Prediabetes. Hemoglobin A1c 6.9. it is technically in diabetic range and is not interested in pharmacotherapy and want to try dietary and lifestyle modifications and recheck in 3 months He has strong family history of diabetes. months. Gastritis. Status post upper endoscopy and was started on omeprazole 20 mg 1 tablet twice a day. He has follow-up appointment with GI in August. He can take omeprazole 20 mg once a day if he is asymptomatic. Rash right cheekbone. Most likely viral rash after upper respiratory tract infection. It is slightly better and he can use hymv-kun-uqrxypw cortisone cream for the next couple of weeks and let us know. Screening blood work reviewed 08/15/2024 Gastritis, unspecified, [...] he is asymptomatic. Screening blood work reviewed 01/22/2025 Gastritis, unspecified, without bleeding (ICD-10 - K29.70) Lucas is pleasant 59 years old gentleman with hypertension, prediabetic, gastritis is here today for follow-up on hypertension and hemoglobin A1c. Plan is as follows Hypertension. Blood pressure in the office today is within normal limits. Continue current regimen of amlodipine 10 mg daily and HCTZ 12.5 mg daily. Continue low sodium diet, regular exercise. Prediabetes. Hemoglobin A1c 6.9. it is technically in diabetic range and is not interested in pharmacotherapy and want to try dietary and lifestyle modifications and recheck in 3 months He has strong family history of diabetes. months. Gastritis. Status post upper endoscopy and was started on omeprazole 20 mg 1 tablet twice a day. He has follow-up appointment with GI in August. He can take omeprazole 20 mg once a day if he is asymptomatic. Rash right cheekbone. Most likely viral rash after upper respiratory tract infection. It is slightly better and he can use ufpl-hgr-wuqfwfy cortisone cream for the next couple of weeks and let us know. Screening blood work reviewed 07/24/2024 Gastritis, unspecified, without bleeding (ICD-10 - [...] to have colonoscopy and upper endoscopy at [facility] on July 31, 2024 Impaired fasting glucose; [...] to have colonoscopy and upper endoscopy at [facility] on July 31, 2024 Impaired fasting glucose; A1C is elevated from 6.0 to 6.1. Dietary modifications is highly recommended. We will repeat A1c. screening blood work ordered. Advised to get pneumonia and shingles vaccine 01/22/2025 Rash and other nonspecific skin eruption (ICD-10 - R21) Lucas is pleasant 59 years old gentleman with hypertension, prediabetic, gastritis is here today for follow-up on hypertension and hemoglobin A1c. Plan is as follows Hypertension. Blood pressure in the office today is within normal limits. Continue current regimen of amlodipine 10 mg daily and HCTZ 12.5 mg daily. Continue low sodium diet, regular exercise. Prediabetes. Hemoglobin A1c 6.9. it is technically in diabetic range and is not interested in pharmacotherapy and want to try dietary and lifestyle modifications and recheck in 3 months He has strong family history of diabetes. months. Gastritis. Status post upper endoscopy and was started on omeprazole 20 mg 1 tablet twice a day. He has follow-up appointment with GI in August. He can take omeprazole 20 mg once a day if he is asymptomatic. Rash right cheekbone. Most likely viral rash after upper respiratory tract infection. It is slightly better and he can use gyxl-xxs-cvvuucd cortisone cream for the next couple of weeks and let us know. Screening blood work reviewed Plan Of Treatment Pending Test Test Name Order Date Electrocardiogram (EKG) 02/20/2018 Esophagogastroduodenoscopy (EGD) 024 Ultrasound : Kidneys 04/16/2018 EBCT Coronary calcium score 07/12/2023 COMPREHENSIVE METABOLIC PANEL 09/30/2021 GLUCOSE 09/04/2023 HEMOGLOBIN A1C 12/09/2021 HEMOGLOBIN A1C WITH EST GLUCOSE 09/04/19 HEMOGLOBIN A1C WITH EST GLUCOSE 06/15/20 LIPID PANEL 09/30/2021 MICROALBUMIN, URINE 09/30/2021 Hgb A1c with eAG Estimation-[id number] 01/13 Future Test Test Name Order Date Hemoglobin [id number] 01/22/2025 Next Appt Details Provider Name:MANNIE GARVEY , 04/23/2025 03:45:00 PM, [address] [place] [address], [phone], Insurance Providers Payer Name Payer Address Payer Phone Subscriber Number Group Number Insured Name Patient Relationship to Insured Coverage Start Date Coverage End Date [facility] [address] [place] [address] [id number] Lucas Farrell Self - patient is the insured 7 Medical (General) History Medical History History ICD Code Hypertension Impaired fasting glucose Proteinuria Personal history of COVID-19 Surgical History Surgery Date(Month/Year) Hospitalization History Reason Date(Month/Year)
== END 2025-02-18 10:25 | disposition home or self-care (01) ==
LOC: HO.US 10:24
PROVIDERS: PCP Hospitalist; Visit Provider Nurse Practitioner Family
DX: R35.0 Frequency of micturition (principal)
CPT/HCPCS: 76770

== ENCOUNTER → 2025-02-18 10:26 | Outpatient (BNV) | payer BC, SELFPAY | PROVIDERS: PCP Hospitalist; Visit Provider Radiology Diagnostic Radiology | DX: N40.0 Benign prostatic hyperplasia without lower urinary tract symptoms (principal) | CPT/HCPCS: 76770 ==

== ENCOUNTER 2025-02-25 08:10 | Outpatient (REF) | payer BC, SELFPAY ==
--- OUTSIDE RECORDS SUMMARY | 2025-02-25 08:28 | XMS_ITS ---
Author Name [facility] Organization Unknown History of Medication Use Medication Directions Dispensed Refills Start Date End Date Stat us doxycycline hyclateT carissa 1 capsule (Oral) 2 times per day for 7 [id number] times per [id number] 09/12/2023 active promethazine-DMTake 5 ml (oral) every 4-6 hours for 5 [id number] 4-6 ckvtbkbgj9egauygihwt4.25-15mg /5 mL 09/10/2023 active lisinopriL-hydrochlo rothiazid eTake (oral)No date recordedtabletNo frequency recordedoralNo set duration recordedNo set duration amount [id number] active Problems Problem Status Onset Date Problem Type Date of Resoluti on Source Hypertension active ProblemAct [facility] S[facility] Acute upper respiratory infection, unspecified active 2023-09-10 ProblemAct [facility] YSON[facility] Pneumonia, unspecified organism active 2023-09-12 ProblemAct [facility] Cough, unspecified active 2023-09-12 ProblemAct [facility] Acute cough active 2023-09-11 ProblemAct [facility] S[facility] Encounters Encounter Type Encounter Reason Primary Diagnosis Location Date Ambulatory [facility] 09/12/2023 Care Team Organization Name Specialty Phone Email Start Date End Da te [facility] NO PROVIDER Primary Care 09/10/2023 [facility] NO PROVIDER Primary Care 09/10/2023
--- OUTSIDE RECORDS SUMMARY | 2025-02-25 08:28 | XMS_ITS | Patient Health Record ---
Author Organization [facility] Address [address] [place] [address] Care Team Providers Care Ice Platform Supervisor Name Role Phone MANNIE GARVEY Primary Care Provider Allergies Allergen (clinical drug ingredient) Drug/Non Drug Allergy documented on EMR Reaction Allergy Type Onset Date Status penicillamine Penicillamine Unknown Drug Allergy Active Results Component Value Reference Range Notes Hemoglobin [id number] Reviewed date:01/22/2025 07:57:15 AM Interpretation: Performing Lab:[facility], [facility], Phone - [phone], Director - MDJodry Notes/Report: Hemoglobin A1c 6.9 4.8-5.6 % . Prediabetes: 5.7 - 6.4 Diabetes: >6.4 Glycemic control for adults with diabetes: <7.0 PSA (Serial Monitor)-[id number] Reviewed date:07/28/2024 04:54:21 PM Interpretation: Performing Lab:[facility] [address] [place] [address], Phone - [phone], Director - MDJodry Notes/Report: Prostate Specific Ag 0.7 0.0-4.0 ng/mL . According to the [employer], Serum PSA should Satnam ECLIA methodology. decrease and remain at undetectable levels after radical prostatectomy. The AUA defines biochemical recurrence as an initial PSA value 0.2 ng/mL or greater followed by a subsequent confirmatory PSA value 0.2 ng/mL or greater. Values obtained with different assay methods or kits cannot be used interchangeably. Results cannot be interpreted as absolute evidence of the presence or absence of malignant disease. Hemoglobin [id number] Reviewed date:07/28/2024 04:54:25 PM Interpretation: Performing Lab:[facility], [place], Phone - [phone], Director - Erlin Notes/Report: Hemoglobin A1c 6.2 4.8-5.6 % . Prediabetes: 5.7 - 6.4 Diabetes: >6.4 Glycemic control for adults with diabetes: <7.0 Albumin/Creatinine Ratio,Uri ne-[id number] Reviewed date:07/28/2024 04:54:29 PM Interpretation: Performing [facility], [address] [place] [address], Phone - [phone], Director - Erlin Notes/Report: Creatinine, Urine 328.2 Not Estab. mg/dL Albumin, Urine 284.1 Not Estab. ug/mL Alb/Creat Ratio 87 0-29 mg/g creat Normal: 0 - 29 Moderately increased: 30 - 300 Severely increased: >300 Lipid Panel-[id number] Reviewed date:07/28/2024 04:58:52 PM Interpretation: Performing Lab:[facility], [address] [place] [address], Phone - [phone], Director - Erlin Notes/Report: Cholesterol, Total 68 100-199 mg/dL Triglycerides 41 0-149 mg/dL HDL Cholesterol 32 >39 mg/dL VLDL Cholesterol Jacob 12 5-40 mg/dL LDL Chol Calc (NIH) 24 0-99 mg/dL Comp. Metabolic Panel (14)-3 71455 Reviewed date:07/28/2024 04:58:56 PM Interpretation: Performing Lab:[facility], [address] [place] [address], Phone - [phone], Director - Erlin Notes/Report: Glucose 99 70-99 [...] Notes Problem Gastro-esophageal reflux disease without esophagitis (554259849) Gastro-esophage al reflux disease without esophagitis (K21.9) Active confirmed Problem Gastroduodenitis (623231912) Gastritis, unspecified, without bleeding (K29.70) Active confirmed Problem Proteinuria (52709776) Proteinuria, unspecified (R80.9) Active confirmed Problem Adult health examination (700998799) Encounter for general adult medical examination without abnormal findings (Z00.00) Active confirmed Problem Essential hypertension (19328432) Essential (primary) hypertension (I10) Active confirmed Problem History of disease caused by Severe acute respiratory syndrome coronavirus 2 (situation) (398996923473938377 ) Personal history of COVID-19 (Z86.16) Active confirmed Vital Signs Heart Rate 74 /min 01/22/2025 Temperature 97.1 degrees Fahrenheit 01/22/2025 Blood pressure diastolic 88 mm Hg 01/22/2025 Oximetry 99 % 01/22/2025 Height 65.75 in 01/22/2025 Blood pressure systolic 122 mm Hg 01/22/2025 Weight 159.0 lbs 01/22/2025 BMI 25.86 kg/m2 01/22/2025 Encounters Encounter Location Date Provider Diagnosis [address] [address] 07/24/2024 CHAND GUL Essential (primary) hypertension I10 ; Encounter for general adult medical examination without abnormal findings Z00.00 ; Gastritis, unspecified, without bleeding K29.70 and Impaired fasting blood sugar R73.[address] [address] 08/15/2024 CHAND GUL Essential (primary) hypertension I10 ; Prediabetes R73.03 and Gastritis, unspecified, without bleeding K29.[address] [address] 01/22/2025 CHAND GUL Essential (primary) hypertension I10 ; Prediabetes R73.03 ; Gastritis, unspecified, without bleeding K29.70 and Rash and other nonspecific skin eruption R21 [facility] [address] [place] [address] 07/17/2024 CH[facility] [address] [place] [address] 08/08/2024 CHAND [facility] [address] [place] [address] 08/08/2024 CHAND Adeline Assessments Encounter Date Diagnosis (ICD Code) Assessment [...] to have colonoscopy and upper endoscopy at [facility] on July 31, 2024 Impaired fasting [...] to have colonoscopy and upper endoscopy at [facility] on July 31, 2024 Impaired fasting [...] is slightly better and he can use sdcr-wlw-gpougle cortisone cream for the next couple of weeks and let us know. Screening blood work reviewed 01/22/2025 Prediabetes (ICD-10 - R73.03) Lucas gill 59 years old gentleman with hypertension, prediabetic, [...] is slightly better and he can use hegq-txl-smxgffk cortisone cream for the next couple of weeks and let us know. Screening blood work reviewed 08/15/2024 Gastritis, unspecified, without bleeding (ICD-10 - K29.70) Lucas is bridget 59 years old gentleman [...] is slightly better and he can use dvee-loc-edgtxso cortisone cream for the next couple of [...] to have colonoscopy and upper endoscopy at [facility] on July 31, 2024 Impaired fasting [...] to have colonoscopy and upper endoscopy at [facility] on July 31, 2024 Impaired fasting [...] is slightly better and he can use zpku-nov-ibzeurj cortisone cream for the next couple of [...] MICROALBUMIN, URINE 09/30/2021 Hgb A1c with eAG Estimation-[id number] 01/13 Future Test Test Name Order Date Hemoglobin [id number] 01/22/2025 Next Appt Details Provider Name:MANNIE GARVEY , 04/23/2025 03:45:00 PM, [address] [place] [address], [phone], Insurance Providers Payer Name Payer Address Payer Phone Subscriber Number Group Number Insured Name Patient Relationship to Insured Coverage Start Date Coverage End Date [facility] [address] [place] [address] [id number] Lucas Farrell Self - patient is the insured 7 Medical (General) History Medical History History ICD Code Hypertension Impaired fasting glucose Proteinuria Personal history of COVID-19 Surgical History Surgery Date(Month/Year) Hospitalization History Reason Date(Month/Year)
[2025-02-25 10:04] LABS: Prostate Specific Antigen 0.56 ng/mL (<0.05-4.0)
== END 2025-02-25 08:11 | disposition home or self-care (01) ==
LOC: HO.LAB 08:10
PROVIDERS: PCP Hospitalist; Visit Provider Nurse Practitioner Family
DX: N40.1 Benign prostatic hyperplasia with lower urinary tract symptoms (principal); R35.0 Frequency of micturition; N28.1 Cyst of kidney, acquired; R80.9 Proteinuria, unspecified; Z13.89 Encounter for screening for other disorder; Z12.5 Encounter for screening for malignant neoplasm of prostate
CPT/HCPCS: 36415; 81003; 84153

== ENCOUNTER 2025-02-25 15:56 | Outpatient (AMB) | payer BC, SELFPAY ==
--- NOTE | 2025-02-25 16:01 | MHC.OFFVIS ---
Intake Visit Reasons: 3M follow up/ PSA/ US Intake Note: Patient is present for 3M/PSA/US Urology Medication:NONE Antibiotic Allergy:PENICILLINS Blood Thinner:NONE Real Estate Economist Required: No Allergies lisinopril Allergy (Severe, Verified 02/25/25 16:02) Angioedema Penicillins Adverse Reaction (Intermediate, Verified 02/25/25 16:02) Palpitations HPI Comments Details: Lucas is a pleasant 59-year-old male patient of Dr. Nogueira. He has a past medical history of anal fissure, hypertension, GERD, hiatal hernia, sinusitis, and allergies. He presents to the office today for follow-up. Of note, patient was seen approximately 3 months ago as a new patient for increased urinary frequency at which time a retroperitoneal ultrasound and PSA were ordered for further assessment evaluation. These results were reviewed and communicated with the patient today. 02/23 Bilateral kidneys are normal in size and echotexture. Normal color flow. No nephrolithiasis, hydronephrosis, or renal masses noted bilaterally. The urinary bladder is unremarkable. The prostate is enlarged measuring 61 mL. Postvoid residual of 160 mL. During last office visit patient was noted to have microscopic hematuria. Urine cytology 11/23: Negative for high-grade urothelial carcinoma. He denies any previous history of nicotine dependence and or workplace chemical exposure. He reports that initially he did feel he had urinary frequency however feels this was related to his blood pressure medication in does not feel he has had any bothersome urinary issues or concerns. We did discuss increase in postvoid residual during imaging as well as enlarged prostate. We did discussed further treatment options and risks and benefits of these treatment options. He currently denies any bothersome urinary issues or concerns. He denies urinary urgency, urinary frequency, incontinence, nocturia, hematuria, dysuria, foul smelling urine, changes to urinary stream, flank pain, fever, and or chills. He is happy with his current voiding parameters. In office urinalysis results reviewed with the patient today 2+ proteinuria no microscopic hematuria noted. All questions were answered. He otherwise offers no other issues or concerns at this time. PSA: 02/25 0.6 PFSH Medical History GERD (gastroesophageal reflux disease) Hiatal hernia Chronic cough Laryngospasm Sinusitis Allergies Hypertension Surgical History Hx of colonoscopy No pertinent past surgical history Social History Do you presently have visiting nurse or other home services: No Alcohol intake: never Patient Tobacco Use Status: Never used Tobacco Review of Systems Const All systems reviewed & are unremarkable except as noted in HPI and below Physical Exam Const General: cooperative, healthy appearing, comfortable, no acute distress, well developed, alert and awake Orientation/consciousness: patient oriented x3 Limitations: no limitations HEENT Head: Yes normal to inspection, Yes normocephalic and Yes atraumatic Ears: hearing grossly normal bilaterally Eyes General: appearance normal, both eyes and all related structures Neck Neck: Yes normal visual inspection and Yes trachea midline Chest Chest palpation & inspection: normal inspection of the chest Resp Effort & Inspection: normal respiratory effort and able to speak in complete sentences Cardio Rate: regular rate GI Inspection: Yes normal to inspection General: Yes no CVA tenderness Back/Spine/Pelvis Back: no CVA tenderness Skin General skin exam: no rashes or lesions noted Neuro General: patient oriented x3 Extrem General: Yes normal to inspection Psych Appearance: grossly normal and well kempt Mental Status: mental status grossly normal Speech and movement: Normal speech and movement present and Clear speech present Affect: normal affect Attitude: cooperative Thought process: Normal thought process present Thought content: Normal thought content present Insight: Fair insight present (Psych) Judgement: Fair judgement present (Psych) Results AMB Urinalysis, Automated UA Leukoctes 0 Glory/uL Last Edit by LORNE Schultz on 02/25/25 16:25 UA Nitrite Negative Last Edit by LORNE Schultz on 02/25/25 16:25 UA Urobilinogen 0.2 mg/dL Last Edit by LORNE Schultz on 02/25/25 16:25 UA Protein 100 mg/dL Last Edit by LORNE Schultz on 02/25/25 16:25 UA pH 6.0 Last Edit by LORNE Schultz on 02/25/25 16:25 UA Blood 0 Brett/uL Last Edit by LORNE Schultz on 02/25/25 16:25 UA Specific [place] 1.025 Last Edit by LORNE Schultz on 02/25/25 16:25 UA Ketone Positive Last Edit by LORNE Schultz on 02/25/25 16:25 UA Bilirubin 0 mg/dL Last Edit by LORNE Schultz on 02/25/25 16:25 UA Glucose 0 mg/dL Last Edit by LORNE Schultz on 02/25/25 16:25 Results Reviewed Results Reviewed: Date of Service: 02/18/25 Procedure(s): US retroperitoneal comp Findings: Right kidney normal size and echotexture, 12.3 cm length. No hydronephrosis. Normal color flow. No nephrolithiasis. Renal cortical cyst lower pole has benign measuring 2.5 x 2.9 x 3.2 cm. Left kidney normal size and echotexture, 12.3 cm in length. No hydronephrosis. Normal color flow. No nephrolithiasis. No renal masses. Urinary bladder is unremarkable. Prevoid volume 462.3 mL. Postvoid volume 161.1 mL. Ureteral jets are visualized bilaterally Prostate measures 4.5 x 4.6 x 5.6 cm. Impression: 1. Kidneys normal size and position with normal cortical width and echotexture. Incidental renal cortical cysts on the right. No evidence of obstructive uropathy. 2. Elevated postvoid residual bilateral ureteral jets were demonstrated 3. Prostate volume 61.2 mL Assessment & Plan Assessment & Plan (1) Proteinuria: Code(s): R80.9 - Proteinuria, unspecified Category: Medical (2) Enlarged prostate: Code(s): N40.0 - Benign prostatic hyperplasia without lower urinary tract symptoms Category: Medical (3) Renal cyst: Code(s): N28.1 - Cyst of kidney, acquired Category: Medical Plan In office urinalysis results reviewed with the patient today; as noted above. Will refer to Nephrology for proteinuria. We did discussed findings on imaging to include renal cyst, increased postvoid residual, and enlarged prostate; we did discussed further treatment options and risks and benefits of these treatment options. Recent PSA results reviewed with the patient today; as noted above. He would like to continue with surveillance monitoring as he does not feel he has any bothersome urinary issues or concerns. He reports be happy with current voiding parameters. Will continue with surveillance monitoring. Will obtain PSA in 1 year. Follow-up in 1 year with PSA and PVR; or sooner with any issues, concerns, and or questions. Orders: Orders AMB Urinalysis Automated Today Z13.9 - Encounter for screening, unspecified Prostate Specific Antigen 1 Year N40.0 - Benign prostatic hyperplasia without lower urinary tract symptoms Referrals Nephrology Referral R80.9 - Proteinuria, unspecified Patient Instructions: The patient had an opportunity to ask questions regarding the treatment plan. All questions were answered. Physical exam, labs, and imaging were discussed and reviewed in detail. As well as risks, benefits, and discussion of treatment choices. No major barriers to understanding were identified. The patient expressed understanding and agreement with the above treatment plan. The patient was made aware they should contact our office by phone for worsening of their current condition, the appearance of new symptoms, or with any questions or concerns. Compliance is encouraged with any medications and follow up testing that is ordered. It is a privilege to be allowed the opportunity to participate in? your urological care.? Again, if you have any questions or concerns If you have any questions or concerns please do not hesitate to contact me. The office is [phone]. This note is constructed using voice recognition software. While every effort has been made to ensure accuracy pharmacist manager errors may have been included. Yours sincerely, CLARITZA Salinas Coding Level of Care Code Est Pt Level 3 (24412) Diagnoses Proteinuria R80.9 Enlarged prostate N40.0 Renal cyst N28.1
== END 2025-02-25 16:32 | disposition home or self-care (01) ==
LOC: HO.HUSH 15:57
PROVIDERS: PCP Hospitalist; Visit Provider Nurse Practitioner Family
DX: R80.9 Proteinuria, unspecified (principal); N40.0 Benign prostatic hyperplasia without lower urinary tract symptoms; N28.1 Cyst of kidney, acquired; Z13.9 Encounter for screening, unspecified
CPT/HCPCS: 99213

== ENCOUNTER 2025-04-15 15:31 | Outpatient (AMB) | payer BC, SELFPAY ==
--- OUTSIDE RECORDS SUMMARY | 2024-07-17 10:30 | XMS_ITS ---
Author Organization [facility] Address [address] [address] Care Team Providers Care School Counsellor Name Role Phone MANNIE GARVEY Primary Care Provider REASON FOR VISIT 6 month f/u Encounters Encounter Location Date Provider Diagnosis [facility] [address] [address] 07/17/2024 MANNIE GARVEY Plan Of Treatment Next Appt Details Provider Name:MANNIE GARVEY , 04/23/2025 03:45:00 PM, [address] [facility] [address], [place], [address], Progress Notes * Orlin FARRELLJamesOB:1965 (59 yo M)Acc No.[id number]:07/17/2024 Progress Notes Patient: Lucas CARTER Provider: Silas GARVEY MD :1965 A ge:59 Y S ex:Male Date:07/17/2024 Address:[address] [place], [place] [phone] Subjective: * Chief Complaints: * 1 . 6 month f/u. * Medical History: Objective: * Vitals: Assessment: Plan: * Treatment: * Procedure Codes: N OSHO NO SHOW FEE * Images: * Electronic signature of EMELY GARVEY MD on 04/15/2025 at 07:00 PM EDT Sign off status: Pending * Provider: Silas GARVEY MD Date: 0 07/17/2024 Generated for Mathew harden/Bay/Gigi on: 1 07:00 PM EDT
[2025-04-15 15:40] VITALS: BP 126/98; PULSE 91; O2SAT 98; BMI 25.2
--- NOTE | 2025-04-15 15:40 | HO.NEPHOV_ITS ---
Vital Signs 04/15/25 15:40 Height 5 ft 6 in Weight 156 lb BMI 25.2 BP 126/98 H Blood Pressure Location Lt brachial Position Sitting Pulse 91 Pulse Source Pulse Oximeter Pulse Oximetry (%) 98 Oxygen Delivery Method Room Air Intake Visit Reasons: INP-Proteinuria confirmed Quality Engineer Required: No Accompanied by: Self / Same As Patient Allergies lisinopril Allergy (Severe, Verified 04/15/25 15:43) Angioedema Penicillins Adverse Reaction (Intermediate, Verified 04/15/25 15:43) Palpitations HPI Comments Details: 59-year-old gentleman with past medical history of hypertension, childhood asthma, GERD, and the fissure was seen in urology clinic for prostate related issues. He had a urine dipstick done which was positive for proteinuria so is referred to renal clinic. 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 PSA 0.56 PFSH Medical History GERD (gastroesophageal reflux disease) Hiatal hernia Chronic cough Laryngospasm Sinusitis Allergies Hypertension Surgical History Hx of colonoscopy No pertinent past surgical history Social History Do you presently have visiting nurse or other home services: No Alcohol intake: never Patient Tobacco Use Status: Never used Tobacco Review of Systems Const Details: Const : no body aches, no chills, no excessive sweating and no fatigue Eyes: no blurry vision and no change in vision ENT: no bleeding gums and no change in voice, no dizziness Card: no chest pain, no shortness of breath, no orthopnea, no PND Resp: no cough, no excessive phlegm production, no SOB GI: no abdominal pain and no nausea, no vomiting : no hematuria, no urinary frequency and no difficulty voiding Musc: no abnormal gait, no bone pain Neuro: no abnormal movements, no behavioral changes Psych: no behavioral changes and no change in appetite Endo: no change in body appearance,and no fatigue Physical Exam General: not in any acute distress, comfortable, sitting on the chair Nutritional Appearance: well nourished and weight Eyes: normal position, no icterus Neck: No lymphadenopathy, no thyromegaly Resp: bilateral air entry equal, no added sounds present Cardio: normal S1, S2 heard, no murmur heard, no edema GI: soft, nontender, no guarding, no hepatosplenomegaly : bladder normal to inspection, bladder normal to palpation, no renal angle tenderness Skin: no rashes or lesions noted and elasticity normal Neuro: oriented to person, oriented to place, oriented to time and moves all extremities Assessment & Plan Assessment & Plan (1) Proteinuria: Code(s): R80.9 - Proteinuria, unspecified Category: Medical (2) Chronic kidney disease: Code(s): N18.9 - Chronic kidney disease, unspecified Category: Medical Plan Chronic kidney disease stage IIIa: Proteinuria: Patient has proteinuria on dipstick examination, we will quantify proteinuria If the patient has significant proteinuria, we will do further workup for proteinuria His last creatinine in the system was 1.32, with GFR 56 possibly secondary to atherosclerotic renovascular disease given his hypertension. Will get urinalysis, and we will see if he needs further workup for his CKD. Will follow him up in a month, based on the results we will decide on further plans Orders: Orders Complete Blood Count no Diff Today R80.9 - Proteinuria, unspecified Basic Metabolic Panel Today R80.9 - Proteinuria, unspecified UA and rflx microscopic Today R80.9 - Proteinuria, unspecified Microalbumin, Random (w Creat) Today R80.9 - Proteinuria, unspecified Total Protein Urine Random Today R80.9 - Proteinuria, unspecified Creatinine Urine Today R80.9 - Proteinuria, unspecified Phosphorus Today R80.9 - Proteinuria, unspecified Coding Level of Care Code New Pt Level 4 (32345) Diagnoses Proteinuria R80.9 Chronic kidney disease N18.9
--- OUTSIDE RECORDS SUMMARY | 2025-04-15 19:01 | XMS_ITS | Patient Health Record ---
Author Organization [facility] Address [address] [place] [address] Care Team Providers Care Consulting Psychiatrist Name Role Phone MANNIE GARVEY Primary Care Provider Allergies Allergen (clinical drug ingredient) Drug/Non Drug Allergy documented on EMR Reaction Allergy Type Onset Date Status penicillamine Penicillamine Unknown Drug Allergy Active Results Component Value Reference Range Notes PSA (Serial Monitor)-[id number] Reviewed date:07/28/2024 04:54:21 PM Interpretation: Performing Lab:[facility], [address] [facility], Phone - [phone], Director - MDGranty Notes/Report: Prostate Specific Ag 0.7 0.0-4.0 ng/mL Satnam ECLIA methodology. . According to the [place] [employer], Serum PSA should decrease and [...] presence or absence of malignant disease. Hemoglobin [id number] Reviewed date:07/28/2024 04:54:25 PM Interpretation: Performing Lab:[facility], [facility], [place], Phone - [phone], Director - MDKaylandry Notes/Report: Hemoglobin A1c 6.2 4.8-5.6 % . Prediabetes: 5.7 - 6.4 Diabetes: >6.4 Glycemic control for adults with diabetes: <7.0 Albumin/Creatinine Ratio,Uri ne-[id number] Reviewed date:07/28/2024 04:54:29 PM Interpretation: Performing Lab:[facility], [address] [place] [address], Phone - [phone], Director - MDJodry Notes/Report: Creatinine, Urine 328.2 Not Estab. mg/dL Albumin, Urine 284.1 Not Estab. ug/mL Alb/Creat Ratio 87 0-29 mg/g creat Normal: 0 - 29 Moderately increased: 30 - 300 Severely increased: >300 Lipid Panel-[id number] Reviewed date:07/28/2024 04:58:52 PM Interpretation: Performing Lab:[facility] [place], [address] [place] [address], Phone - [phone], Director - MDJodry Notes/Report: Cholesterol, Total 68 100-199 mg/dL Triglycerides 41 0-149 mg/dL HDL Cholesterol 32 >39 mg/dL VLDL Cholesterol Jacob 12 5-40 mg/dL LDL Chol Calc (NIH) 24 0-99 mg/dL Comp. Metabolic Panel (14)-3 [id number] Reviewed date:07/28/2024 04:58:56 PM Interpretation: Performing Lab:[facility] [place], [address] [place] [address], Phone - [phone], Director - MDKaylandry Notes/Report: Glucose 99 70-99 mg/dL BUN 14 [...] 0-40 IU/L ALT (SGPT) 25 0-44 IU/L Hemoglobin [id number] Reviewed date:01/22/2025 07:57:15 AM Interpretation: Performing [facility], [address] [place] [address], Phone - [phone], Director - MDJodry Notes/Report: Hemoglobin A1c 6.9 4.8-5.6 % . Prediabetes: 5.7 - 6.4 Diabetes: >6.4 Glycemic control for adults with diabetes: <7.0 Reason For Referral No Information Medications Medication SIG (Take, Route, Frequency, Duration) Notes Start Date End Date Status Lansoprazole 30 MG 1 tablet Orally Once a day; Duration: 30 days 12/24/2023 Not-Taking amLODIPine Besylate 10 MG TAKE 1 TABLET BY MOUTH EVERY DAY FOR 30 DAYS; Duration: 90 Active Famotidine 40 MG TAKE 1 TABLET BY MOUTH EVERY DAY AT BEDTIME FOR 30 DAYS; Duration: 90 Not-Taking hydroCHLOROthiazide 12.5 MG 1 tablet in [...] Notes Problem Gastro-esophageal reflux disease without esophagitis (383022057) Gastro-esophage al reflux disease without esophagitis (K21.9) Active confirmed Problem Gastroduodenitis (841869303) Gastritis, unspecified, without bleeding (K29.70) Active confirmed Problem Proteinuria (12705125) Proteinuria, unspecified (R80.9) Active confirmed Problem Adult health examination (934620621) Encounter for general adult medical examination without abnormal findings (Z00.00) Active confirmed Problem Essential hypertension (98188148) Essential (primary) hypertension (I10) Active confirmed Problem History of disease caused by Severe acute respiratory syndrome coronavirus 2 (situation) (591116674894550687 ) Personal history of COVID-19 (Z86.16) Active confirmed Vital Signs Heart Rate 74 /min 01/22/2025 Temperature 97.1 degrees Fahrenheit 01/22/2025 Blood pressure diastolic 88 mm Hg 01/22/2025 Oximetry 99 % 01/22/2025 Height 65.75 in 01/22/2025 Blood pressure systolic 122 mm Hg 01/22/2025 Weight 159.0 lbs 01/22/2025 BMI 25.86 kg/m2 01/22/2025 Encounters Encounter Location Date Provider Diagnosis [address] [address] 07/24/2024 [facility] GUL Essential (primary) hypertension I10 ; Encounter for general adult medical examination without abnormal findings Z00.00 ; Gastritis, unspecified, without bleeding K29.70 and Impaired fasting blood sugar R73.[address] [address] 08/15/2024 [facility] Essential (primary) hypertension I10 ; Prediabetes R73.03 and Gastritis, unspecified, without bleeding K29.[address] [address] 01/22/2025 [facility] GUL Essential (primary) hypertension I10 ; Prediabetes R73.03 ; Gastritis, unspecified, without bleeding K29.70 and Rash and other nonspecific skin eruption R21 [facility] [address] [place] [address] 07/17/2024 [facility] [address] [place] [address] 08/08/2024 [facility] [address] [place] [address] 08/08/2024 [facility] Assessments Encounter Date Diagnosis (ICD Code) [...] have colonoscopy and upper endoscopy at [facility] on July 31, 2024 Impaired fasting [...] have colonoscopy and upper endoscopy at [facility] on July 31, 2024 Impaired fasting [...] is slightly better and he can use sami-nbq-rkcjzuk cortisone cream for the next couple of [...] is slightly better and he can use asfw-gdz-jjsmfkz cortisone cream for the next couple of weeks and let us know. Screening blood work reviewed 01/22/2025 Gastritis, unspecified, [...] is slightly better and he can use gsad-djp-ezgeppx cortisone cream for the next couple of [...] he is asymptomatic. Screening blood work reviewed 07/24/2024 Gastritis, unspecified, [...] have colonoscopy and upper endoscopy at [facility] on July 31, 2024 Impaired fasting [...] have colonoscopy and upper endoscopy at [facility] on July 31, 2024 Impaired fasting [...] is slightly better and he can use ehti-arl-izhvgah cortisone cream for the next couple of [...] MICROALBUMIN, URINE 09/30/2021 Hgb A1c with eAG Estimation-[id number] 01/13 Future Test Test Name Order Date Hemoglobin [id number] 01/22/2025 Next Appt Details Provider Name:MANNIE GARVEY , 04/23/2025 03:45:00 PM, [address] [place] [address], [phone], Insurance Providers Payer Name Payer Address Payer Phone Subscriber Number Group Number Insured Name Patient Relationship to Insured Coverage Start Date Coverage End Date [facility] [address] [place] [address] [id number] Lucas Farrell Self - patient is the insured 7 Medical (General) History Medical History History ICD Code Hypertension Impaired fasting glucose Proteinuria Personal history of COVID-19 Surgical History Surgery Date(Month/Year) Hospitalization History Reason Date(Month/Year)
== END 2025-04-15 16:02 | disposition home or self-care (01) ==
LOC: HO.HKAS 15:32
PROVIDERS: PCP Hospitalist; Visit Provider Internal Medicine Critical Care Medicine
DX: R80.9 Proteinuria, unspecified (principal); N18.9 Chronic kidney disease, unspecified
CPT/HCPCS: 99204

== ENCOUNTER 2025-04-21 08:06 | Outpatient (REF) | payer BC, SELFPAY ==
--- OUTSIDE RECORDS SUMMARY | 2024-07-17 10:30 | XMS_ITS ---
Author Organization [facility] Address [address] [address] Care Team Providers Care Block Sorter Name Role Phone MANNIE GARVEY Primary Care Provider [phone] REASON FOR VISIT 6 month f/u Encounters Encounter Location Date Provider Diagnosis [facility] [address] [facility] [address] [place] [address] 07/17/2024 MANNIE GARVEY Plan Of Treatment Next Appt Details Provider Name:MANNIE GARVEY , 04/23/2025 03:45:00 PM, [address] [facility] [address], [place], [address], Progress Notes * Orlin FARRELLJamesOB:1965 (59 yo M)Acc No.[id number]:07/17/2024 Progress Notes Patient: Lucsa CARTER Provider: Silas GARVEY MD :1965 A ge:59 Y S ex:Male Date:07/17/2024 Address:[address] [place], [place] [phone] Subjective: * Chief Complaints: * 1 . 6 month f/u. * Medical History: Objective: * Vitals: Assessment: Plan: * Treatment: * Procedure Codes: N OSHO NO SHOW FEE * Images: * Electronic signature of EMELY GARVEY MD on 04/21/2025 at 08:13 AM EDT Sign off status: Pending * Provider: Silas GARVEY MD Date: 0 07/17/2024 Generated for Mathew harden/Bay/Gigi on: 1 08:13 AM EDT
--- OUTSIDE RECORDS SUMMARY | 2025-04-21 08:14 | XMS_ITS | Patient Health Record ---
Author Organization [facility] Address [address] [place] [address] Care Team Providers Care Custom Framing Specialist Name Role Phone MANNIE GARVEY Primary Care Provider [phone] Allergies Allergen (clinical drug ingredient) Drug/Non Drug Allergy documented on EMR Reaction Allergy Type Onset Date Status penicillamine Penicillamine Unknown Drug Allergy Active Results Component Value Reference Range Notes Hemoglobin [id number] Reviewed date:01/22/2025 07:57:15 AM Interpretation: Performing Lab:[facility], [address] [place] [address], Phone - [phone], Director - MDJodry Notes/Report: Hemoglobin A1c 6.9 4.8-5.6 % . Prediabetes: 5.7 - 6.4 Diabetes: >6.4 Glycemic control for adults with diabetes: <7.0 PSA (Serial Monitor)-[id number] Reviewed date:07/28/2024 04:54:21 PM Interpretation: Performing Lab:[facility] [place] [address] [place] [address], Phone - [phone], Director - MDJodry Notes/Report: Prostate Specific Ag 0.7 0.0-4.0 ng/mL Satnam ECLIA methodology. . According to the [place] [employer], Serum PSA should decrease and [...] presence or absence of malignant disease. Hemoglobin [id number] Reviewed date:07/28/2024 04:54:25 PM Interpretation: Performing Lab:[facility], [place], Phone - [phone], Director - Erlin Notes/Report: Hemoglobin A1c 6.2 4.8-5.6 % . Prediabetes: 5.7 - 6.4 Diabetes: >6.4 Glycemic control for adults with diabetes: <7.0 Albumin/Creatinine Ratio,Uri ne-603710 Reviewed date:07/28/2024 04:54:29 PM Interpretation: Performing Lab:[facility], [address] [place] [address], Phone - [phone], Director - Erlin Notes/Report: Creatinine, Urine 328.2 Not Estab. mg/dL Albumin, Urine 284.1 Not Estab. ug/mL Alb/Creat Ratio 87 0-29 mg/g creat Normal: 0 - 29 Moderately increased: 30 - 300 Severely increased: >300 Lipid Panel-[id number] Reviewed date:07/28/2024 04:58:52 PM Interpretation: Performing Lab:[facility], [address] [place] [address], Phone - [phone], Director - Erlin Notes/Report: Cholesterol, Total 68 100-199 mg/dL Triglycerides 41 0-149 mg/dL HDL Cholesterol 32 >39 mg/dL VLDL Cholesterol Jacob 12 5-40 mg/dL LDL Chol Calc (NIH) 24 0-99 mg/dL Comp. Metabolic Panel (14)-3 [id number] Reviewed date:07/28/2024 04:58:56 PM Interpretation: Performing Lab:[facility], [address] [place] [address], Phone - [phone], Director - Erlin Notes/Report: Glucose 99 70-99 [...] Notes Problem Gastro-esophageal reflux disease without esophagitis (657368291) Gastro-esophage al reflux disease without esophagitis (K21.9) Active confirmed Problem Gastroduodenitis (929324681) Gastritis, unspecified, without bleeding (K29.70) Active confirmed Problem Proteinuria (71433486) Proteinuria, unspecified (R80.9) Active confirmed Problem Adult health examination (917449682) Encounter for general adult medical examination without abnormal findings (Z00.00) Active confirmed Problem Essential hypertension (30561874) Essential (primary) hypertension (I10) Active confirmed Problem History of disease caused by Severe acute respiratory syndrome coronavirus 2 (situation) (612027520849231301 ) Personal history of COVID-19 (Z86.16) Active confirmed Vital Signs Heart Rate 74 /min 01/22/2025 Temperature 97.1 degrees Fahrenheit 01/22/2025 Oximetry 99 % 01/22/2025 Blood pressure diastolic 88 mm Hg 01/22/2025 Height 65.75 in 01/22/2025 Blood pressure systolic 122 mm Hg 01/22/2025 Weight 159.0 lbs 01/22/2025 BMI 25.86 kg/m2 01/22/2025 Encounters Encounter Location Date Provider Diagnosis [address] [address] 07/24/2024 CH[facility] GUL Essential (primary) hypertension I10 ; Encounter for general adult medical examination without abnormal findings Z00.00 ; Gastritis, unspecified, without bleeding K29.70 and Impaired fasting blood sugar R73.[address] [address] 08/15/2024 [facility] GUL Essential (primary) hypertension I10 ; Prediabetes R73.03 and Gastritis, unspecified, without bleeding K29.[address] [address] 01/22/2025 CH[facility] GUL Essential (primary) hypertension I10 ; Prediabetes R73.03 ; Gastritis, unspecified, without bleeding K29.70 and Rash and other nonspecific skin eruption R21 [facility] [address] [place] [address] 07/17/2024 [facility] [address] [place] [address] 08/08/2024 [facility] [address] [place] [address] 08/08/2024 [facility] Assessments Encounter Date Diagnosis (ICD Code) [...] to have colonoscopy and upper endoscopy at [facility] [place] on July 31, 2024 Impaired fasting glucose; [...] to have colonoscopy and upper endoscopy at [facility] on July 31, 2024 Impaired fasting glucose; [...] is slightly better and he can use wcja-gwn-tneasvp cortisone cream for the next couple of [...] is slightly better and he can use yabd-dpb-exyrqpl cortisone cream for the next couple of [...] is slightly better and he can use amka-pjr-zotlbhu cortisone cream for the next couple of [...] to have colonoscopy and upper endoscopy at [facility] [place] on July 31, 2024 Impaired fasting glucose; [...] to have colonoscopy and upper endoscopy at [facility] on July 31, 2024 Impaired fasting glucose; [...] is slightly better and he can use hxyx-jse-sezavzj cortisone cream for the next couple of weeks and let us know. Screening blood work reviewed Plan Of Treatment Pending Test Test Name Order Date Electrocardiogram (EKG) 02/20/2018 Esophagogastroduodenoscopy (EGD) 024 Ultrasound : Kidneys 04/16/2018 EBCT Coronary calcium score 07/12/2023 COMPREHENSIVE METABOLIC PANEL 09/30/2021 GLUCOSE 09/04/2023 HEMOGLOBIN A1C 12/09/2021 HEMOGLOBIN A1C WITH EST GLUCOSE 06/15/20 HEMOGLOBIN A1C WITH EST GLUCOSE 09/04/19 LIPID PANEL 09/30/2021 MICROALBUMIN, URINE 09/30/2021 Hgb A1c with eAG Estimation-[id number] 01/13 Future Test Test Name Order Date Hemoglobin [id number] 01/22/2025 Next Appt Details Provider Name:MANNIE GARVEY , 04/23/2025 03:45:00 PM, [address] [place] [address], [phone], Insurance Providers Payer Name Payer Address Payer Phone Subscriber Number Group Number Insured Name Patient Relationship to Insured Coverage Start Date Coverage End Date [facility] [address] [place] [address] [id number] Lucas Farrell Self - patient is the insured 7 Medical (General) History Medical History History ICD Code Hypertension Impaired fasting glucose Proteinuria Personal history of COVID-19 Surgical History Surgery Date(Month/Year) Hospitalization History Reason Date(Month/Year)
[2025-04-21 13:43] LABS: Appearance Urine Clear; Glucose Urine UA Negative (Negative); PH 6.5 (5.0-9.0); Specific Gravity - Urine 1.025 (1.005-1.025); UMIC TRIGGER UA YES
[2025-04-21 14:02] LABS: Hematocrit 48.4 % (42.0-52.0); Hemoglobin 16.2 g/dl (14.0-18.0); Mean Corpuscular HGB Conc 33.5 g/dl (31.0-36.0); Mean Corpuscular Hemoglobin 28.3 pg (27.0-33.0); Mean Corpuscular Volume 84.6 fL (80.0-98.0); NRBC Abs Auto 0.000 X10*3/uL (0.0-0.012); NRBC Pct Auto 0.0 /100WBC (0.0-0.2); Platelet Count 428 X10*3/uL (160-400); Red Blood Count 5.72 X10*6/uL (4.60-5.80); White Blood Count 9.1 X10*3/uL (4.8-10.8)
[2025-04-21 14:09] LABS: Anion Gap 14 (12-20); Blood Urea Nitrogen 15 mg/dL (9-16); Calcium 8.9 mg/dL (8.4-10.2); Carbon Dioxide 29 mmol/L (22-29); Chloride 101 mmol/L (96-108); Estimated Glomerular Filt Rate > 60; Potassium 3.1 mmol/L (3.3-5.1); Sodium 141 mmol/L (135-145)
[2025-04-21 14:28] LABS: Microalbum/Creatinine Ratio Ur 93.1 ug/mg cr (<30); Total Protein Urine Random 60 mg/dL (<12)
== END 2025-04-21 08:07 | disposition home or self-care (01) ==
LOC: HO.HKASLDS 08:06
PROVIDERS: PCP Hospitalist; Visit Provider Internal Medicine Critical Care Medicine
DX: R80.9 Proteinuria, unspecified (principal)
CPT/HCPCS: 36415; 80048; 81001; 82043; 82570; 84100; 84156; 85027